=== PATIENT | male | born 1955 | race Caucasian/White ===

== ENCOUNTER 2020-10-17 06:52 | Emergency (ER) | payer MEDICAID, SELFPAY ==
--- NOTE | 2020-10-17 | ECG_ITS ---
Test Reason : CP Blood Pressure : / mmHG Vent. Rate : 067 BPM Atrial Rate : 067 BPM P-R Int : 140 ms QRS Dur : 098 ms QT Int : 384 ms P-R-T Axes : 040 -54 -12 degrees QTc Int : 405 ms Normal sinus rhythm Left axis deviation Nonspecific T wave abnormality Abnormal ECG When compared with ECG of 02-DEC-2019 04:53, QRS axis Shifted left Nonspecific T wave abnormality, worse in Inferior leads Referred By: Generic ED Physician Electronically Signed By:Jani Coates
--- NOTE | 2020-10-17 08:18 | XR_ITS ---
EXAMINATION: XR CHEST CLINICAL INFORMATION: Chest pain COMPARISON: Previous chest x-ray November 2019 TECHNIQUE: 2 views of the chest were obtained. FINDINGS: The cardiac and mediastinal contours are stable. There is biapical pleural thickening that is stable. The lungs are clear. There is no pleural effusion or pneumothorax. There are degenerative changes of the spine. XR/XR chest 2V IMPRESSION: No evidence for acute disease in the chest.
--- NOTE | 2020-10-17 08:48 | ED_ITS ---
HPI - Chest Pain General Chief Complaint: Chest Pain Stated Complaint: Chest pain Time Seen by Provider: 10/17/20 08:18 Source: patient Mode of arrival: ambulatory Limitations: no limitations History of Present Illness HPI narrative: Patient presents to ED for intermittent chest pain for the past 3 days. Patient states she describes chest pain as sharp stabbing. Patient states while sleeping the chest pain around 03:00 this morning. Patient states chest pain resolved after taking Tylenol. Patient states presently no chest pain the ER. Patient states no swelling of the lower extremity, coughing up blood, fever, chills, calf pain, recent long travel, any recent surgery. Patient denies any shortness of breath. Patient states no recent trauma to the chest. Patient denies any abdominal pain, vomiting blood, weakness, fever, chills. Patient admits to 1 episode of blood in stool yesterday. Patient has not had any since. MD complaint: chest pain Related Data Allergies Allergy/AdvReac Type Severity Reaction Status Date / Time aspirin [ASA] Allergy Unknown BLEEDING Unverified 06/29/20 16:26 Review of Systems Review of Systems: Yes all other systems are reviewed and are negative Constitutional: Constitutional: Reports as per HPI and Reports no additional constitutional complaints Eyes: Eyes: Reports as per HPI and Reports no additional eye complaints ENT: Reports system reviewed and no additional complaints, except as documented and Reports as per HPI Cardiovascular: Cardiovascular: Reports as per HPI, Reports no additional cardiovascular complaints and Reports chest pain (resolved) Respiratory: Respiratory: Reports as per HPI and Reports no additional respiratory complaints Gastrointestinal: Gastrointestinal: Reports as per HPI and Reports no additional gastrointestinal complaints Genitourinary: Genitourinary: Reports no additional male genitourinary complaints and Reports as per HPI Musculoskeletal: Musculoskeletal: Reports no additional musculoskeletal complaints and Reports as per HPI Neurologic: Reports system reviewed and no additional complaints, except as documented and Reports as per HPI Psychiatric: Psychiatric: Reports no additional psychiatric complaints and Reports as per HPI FOR[facility]LY [facility] Past Medical History Medical History Diabetes Hypertension Social History Social History Advance Directives: No Advance Directives Information Provided: Yes Physical Exam Vital Signs: Vital Signs: Last Vital Signs Temp 98.1 F 10/17/20 09:18 Pulse 58 10/17/20 16:54 Resp 20 10/17/20 16:54 BP 150/80 H 10/17/20 16:54 Pulse Ox 98 10/17/20 16:54 Body Mass Index 27.8 Const: General: cooperative, healthy appearing, comfortable, no acute distress, well developed, alert, awake and Physically active Orientation/consciousness: patient oriented x3 HENMT: Head: Yes normal to inspection and Yes No palpable skull fracture present Eyes: General: appearance normal, both eyes and all related structures Neck: Neck: Yes normal visual inspection, Yes full ROM and Yes no lymphadenopathy Chest: Chest palpation & inspection: normal inspection of the chest and normal palpation of entire chest wall Resp: Effort & Inspection: normal respiratory effort and able to speak in complete sentences Auscultation: clear to auscultation bilaterally Cardio: Jugular venous distension: no JVD Heart sounds: S1 normal heart sound present and S2 normal heart sound present GI: Inspection: Yes normal to inspection and No abdominal wall ecchymosis Palpation (GI): Soft to palpation, not firm, nontender, no guarding and not rigid : General: No CVA tenderness and Yes no CVA tenderness Back/Spine/Pelvis: Back: no CVA tenderness, No CVA tenderness and No back tenderness Skin: General skin exam: no rashes or lesions noted Neuro: General: patient oriented x3, gait normal and CN's II-XI intact bilaterally Cranial nerves: Yes CN's II-XII intact bilaterally Extrem: General: Yes normal to inspection and Yes full ROM Psych: Appearance: grossly normal, well kempt and not disheveled Course Course Course Narrative: Due to age patient will have a cardiac workup. Patient will have labs EKG, labs including troponin, D-dimer, chest x-ray, COVID swab. Patient further denies any chest pain. Patient also have stool by accident due to patient stating 1 episode of blood in stool yesterday. Reevaluation(s) Reevaluation #1: Rectal exam negative for any lenard blood. Stool is brown. Patient presently asymptomatic. Time: 09:52 Reevaluation #2: Patient stool guaiac came back positive. Patient is hemodynamically stable. Patient is symptomatic. Patient vital signs are stable. Patient is not tachycardic. Patient's hemoglobin and hematocrit is stable although slightly lower than prior visits. Not suspecting GI bleeding. Patient is not have any abdominal pain presently in the ER. Patient denies ever having any abdominal pain. Not suspecting any colitis. no need for abdominal CT. Patient D-dimer elevated. Patient will be sent for chest CT a to rule out PE. Time: 10:30 Reevaluation #3: Waiting to hear from Dr. Coates of Cardiology in regards to elevated troponin. He was informed of patient's history, physical exam, lab results, and EKG. Time: 11:21 Additional Reevaluation(s): At 11:[address] Coates who states presently there is no indication for transfer to [facility] for catheterization. He recommends ordering echocardiogram to be done on patient. At 12:20pm the [facility] informed me that patient inferior wall is not moving as per echocardiogram. He recommends patient start on heparin and aspirin. And he will try to transfer patient to [facility] for catheterization. He states patient can take aspirin. While speaking to patient Dr. Coates states he seems like patient was having hemorrhoids. He states patient informed him yesterday he was straining while using the bathroom and there was small amount of blood in the stool and is napkin. He also does not believe patient is having a GI bleed. Dr. Coates states he will call [facility] to transfer patient for possible catherization. 17:16. Patient is awaiting bed assignment from [facility]. MDM - Chest Pain MDM Narrative Medical decision making narrative: NSTEMI Lab Data Result diagrams: 10/17/20 09:33 10/17/20 09:33 Labs: Lab Results 10/17/20 10/17/20 10/17/20 Range/Units 09:33 09:33 09:33 WBC 7.6 (4.8-10.8) X10*3/uL RBC 4.44 L (4.60-5.80) X10*6/uL Hgb 13.5 L (14.0-18.0) g/dl Hct 40.5 L (42-52) % MCV 91.2 (80-98) fL MCH 30.4 (27.0-33.0) pg MCHC 33.3 (31.0-36.0) g/dl RDW 15.1 (11.0-16.0) % Plt Count 186 (160-400) X10*3/uL MPV 12.6 H (9.4-12.4) fL Immature Gran % (Auto) Cancelled Neut % (Auto) Cancelled Lymph % (Auto) Cancelled [place] % (Auto) Cancelled Eos % (Auto) Cancelled Baso % (Auto) Cancelled Lymph # (Auto) Cancelled [place] # (Auto) Cancelled Eos # (Auto) Cancelled Baso # (Auto) Cancelled Abs Immat Gran (auto) Cancelled Absolute Neuts (auto) Cancelled Absolute Nucleated RBC 0.000 (0.0-0.012) X10*3/uL Nucleated RBC % (auto) 0.0 (0.0-0.2) /100WBC Neutrophils % (Manual) 58 (45-73) % Band Neutrophils % 0 L (3-5) % Lymphocytes % (Manual) 27 (20-40) % Monocytes % (Manual) 14 H (2-11) % Eosinophils % (Manual) 1 (0-4) % Abs Neuts (Manual) 4.4 (2.2-7.9) X10*3/uL Lymphocytes # (Manual) 2.1 (0.6-4.8) X10*3/uL Monocytes # (Manual) 1.1 (0.0-1.2) X10*3/uL Eosinophils # (Manual) 0.1 (0.0-0.8) X10*3/UL Platelet Estimate NORMAL (NORMAL) Plt Morphology Comment NORMAL RBC Morphology NORMAL PT 13.5 H (10.8-13.0) SEC INR 1.1 (0.9-1.1) APTT 34.5 (24.1-38.0) SEC D-Dimer NG/ML Sodium 140 (135-145) mmol/L Potassium 4.2 (3.3-5.1) mmol/l Chloride 104 (96-108) mmol/L Carbon Dioxide 29 (22-29) mmol/L Anion Gap 11 L (12-20) BUN 14 (9-16) mg/dL Creatinine 0.86 (0.5-1.4) mg/dL Estim Creat Clear Calc 101.3 Estimated GFR > 60 Random Glucose 110 (60-115) mg/dL Calcium 8.9 (8.4-10.2) mg/dL Total Bilirubin 0.6 (0.0-1.0) mg/dL AST 26 (5-37) U/L ALT 19 (0-40) U/L Alkaline Phosphatase 51 (39-117) U/L Troponin I High Sens (<3.5-35.0) ng/L B-Natriuretic Peptide (<100) pg/mL Total Protein 7.2 (6.5-8.0) g/dL Albumin 4.0 (3.5-5.0) g/dL Stool Occult Blood (NEG) Coronavirus (PCR) Influenza Type A (PCR) Influenza Type B (PCR) RSV RNA Qual (PCR) 10/17/20 10/17/20 10/17/20 Range/Units 09:33 09:33 09:33 WBC (4.8-10.8) X10*3/uL RBC (4.60-5.80) X10*6/uL Hgb (14.0-18.0) g/dl Hct (42-52) % MCV (80-98) fL MCH (27.0-33.0) pg MCHC (31.0-36.0) g/dl RDW (11.0-16.0) % Plt Count (160-400) X10*3/uL MPV (9.4-12.4) fL Immature Gran % (Auto) Neut % (Auto) Lymph % (Auto) Lag[place] % (Auto) Eos % (Auto) Baso % (Auto) Lymph # (Auto) [place] # (Auto) Eos # (Auto) Baso # (Auto) Abs Immat Gran (auto) Absolute Neuts (auto) Absolute Nucleated RBC (0.0-0.012) X10*3/uL Nucleated RBC % (auto) (0.0-0.2) /100WBC Neutrophils % (Manual) (45-73) % Band Neutrophils % (3-5) % Lymphocytes % (Manual) (20-40) % Monocytes % (Manual) (2-11) % Eosinophils % (Manual) (0-4) % Abs Neuts (Manual) (2.2-7.9) X10*3/uL Lymphocytes # (Manual) (0.6-4.8) X10*3/uL Monocytes # (Manual) (0.0-1.2) X10*3/uL Eosinophils # (Manual) (0.0-0.8) X10*3/UL Platelet Estimate (NORMAL) Plt Morphology Comment RBC Morphology PT (10.8-13.0) SEC INR (0.9-1.1) APTT (24.1-38.0) SEC D-Dimer 372 NG/ML Sodium (135-145) mmol/L Potassium (3.3-5.1) mmol/l Chloride (96-108) mmol/L Carbon Dioxide (22-29) mmol/L Anion Gap (12-20) BUN (9-16) mg/dL Creatinine (0.5-1.4) mg/dL Estim Creat Clear Calc Estimated GFR Random Glucose (60-115) mg/dL Calcium (8.4-10.2) mg/dL Total Bilirubin (0.0-1.0) mg/dL AST (5-37) U/L ALT (0-40) U/L Alkaline Phosphatase (39-117) U/L Troponin I High Sens 08143.2 H (<3.5-35.0) ng/L B-Natriuretic Peptide (<100) pg/mL Total Protein (6.5-8.0) g/dL Albumin (3.5-5.0) g/dL Stool Occult Blood (NEG) Coronavirus (PCR) Cancelled Influenza Type A (PCR) Cancelled Influenza Type B (PCR) Cancelled RSV RNA Qual (PCR) Cancelled 10/17/20 10/17/20 10/17/20 Range/Units 09:33 09:44 10:55 WBC (4.8-10.8) X10*3/uL RBC (4.60-5.80) X10*6/uL Hgb (14.0-18.0) g/dl Hct (42-52) % MCV (80-98) fL MCH (27.0-33.0) pg MCHC (31.0-36.0) g/dl RDW (11.0-16.0) % Plt Count (160-400) X10*3/uL MPV (9.4-12.4) fL Immature Gran % (Auto) Neut % (Auto) Lymph % (Auto) [place] % (Auto) Eos % (Auto) Baso % (Auto) Lymph # (Auto) [place] # (Auto) Eos # (Auto) Baso # (Auto) Abs Immat Gran (auto) Absolute Neuts (auto) Absolute Nucleated RBC (0.0-0.012) X10*3/uL Nucleated RBC % (auto) (0.0-0.2) /100WBC Neutrophils % (Manual) (45-73) % Band Neutrophils % (3-5) % Lymphocytes % (Manual) (20-40) % Monocytes % (Manual) (2-11) % Eosinophils % (Manual) (0-4) % Abs Neuts (Manual) (2.2-7.9) X10*3/uL Lymphocytes # (Manual) (0.6-4.8) X10*3/uL Monocytes # (Manual) (0.0-1.2) X10*3/uL Eosinophils # (Manual) (0.0-0.8) X10*3/UL Platelet Estimate (NORMAL) Plt Morphology Comment RBC Morphology PT (10.8-13.0) SEC INR (0.9-1.1) APTT (24.1-38.0) SEC D-Dimer NG/ML Sodium (135-145) mmol/L Potassium (3.3-5.1) mmol/l Chloride (96-108) mmol/L Carbon Dioxide (22-29) mmol/L Anion Gap (12-20) BUN (9-16) mg/dL Creatinine (0.5-1.4) mg/dL Estim Creat Clear Calc Estimated GFR Random Glucose (60-115) mg/dL Calcium (8.4-10.2) mg/dL Total Bilirubin (0.0-1.0) mg/dL AST (5-37) U/L ALT (0-40) U/L Alkaline Phosphatase (39-117) U/L Troponin I High Sens (<3.5-35.0) ng/L B-Natriuretic Peptide 428 H (<100) pg/mL Total Protein (6.5-8.0) g/dL Albumin (3.5-5.0) g/dL Stool Occult Blood POS (NEG) Coronavirus (PCR) NEGATIVE Influenza Type A (PCR) NEGATIVE Influenza Type B (PCR) NEGATIVE RSV RNA Qual (PCR) NEGATIVE ECG Data ECG #1: Interpretation: NORMAL SINUS RHYTHM. LEFT AXIS DEVIATION. NONSPECIFIC T- WAVE ABNORMALITY. VENTRICULAR RATE 67. PARENTS OF 140. QRS 98. NEGATIVE STEMI Critical Care Time Critical Care Time Critical Care Time: Yes Total Critical Care Time: 60 Attestation: PATIENT TROPONIN OVER 10,000. 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 DIANNA ARCE WAS CONTACTED AND HE RECOMMENDED ECHOCARDIOGRAM. ONCE ECHOCARDIOGRAM SHOWS NO MOVEMENT IN THE INFERIOR WALL HE RECOMMENDED HEPARIN BOLUS AND INFUSION, WHICH WAS ORDERED. PATIENT TO BE TRANSFERRED TO [facility] Discharge Plan Discharge Clinical Impression: NSTEMI (non-ST elevated myocardial infarction) Patient Disposition: [facility]
[2020-10-17 09:18] VITALS: BP 152/89; PULSE 56; RESP 16; TEMP 36.7; O2SAT 98; BMI 27.8
[2020-10-17 09:46] LABS: Hemoglobin 13.5 g/dl (14.0-18.0); Mean Corpuscular HGB Conc 33.3 g/dl (31.0-36.0); Red Cell Distribution Width 15.1 % (11.0-16.0)
[2020-10-17 09:50] LABS: Hematocrit 40.5 % (42-52); Mean Corpuscular Hemoglobin 30.4 pg (27.0-33.0); Mean Corpuscular Volume 91.2 fL (80-98); Mean Platelet Volume 12.6 fL (9.4-12.4); Platelet Count 186 X10*3/uL (160-400); Red Blood Count 4.44 X10*6/uL (4.60-5.80)
[2020-10-17 09:52] LABS: WBC ABN SCTR FOR CBC 1; White Blood Count 7.6 X10*3/uL (4.8-10.8)
[2020-10-17 09:59] LABS: INTERNATIONAL NORM RATIO 1.1 (0.9-1.1); Prothrombin Time 13.5 SEC (10.8-13.0)
[2020-10-17 10:01] LABS: Partial Thromboplastin Time 34.5 SEC (24.1-38.0)
[2020-10-17 10:02] LABS: D Dimer 372 NG/ML
[2020-10-17 10:03] LABS: OBS Int Ctl Valid YES; OBS1 POS (NEG)
[2020-10-17 10:05] LABS: Alanine Aminotransferase 19 U/L (0-40); Alkaline Phosphatase 51 U/L (39-117); Anion Gap 11 (12-20); Aspartate Amino Transferase 26 U/L (5-37); Bilirubin Total 0.6 mg/dL (0.0-1.0); Blood Urea Nitrogen 14 mg/dL (9-16); Calcium 8.9 mg/dL (8.4-10.2); Carbon Dioxide 29 mmol/L (22-29); Chloride 104 mmol/L (96-108); Creatinine Clr Calc Pharmacy 101.3; Estimated Glomerular Filt Rate > 60; Glucose Random 110 mg/dL (60-115); Potassium 4.2 mmol/l (3.3-5.1); Sodium 140 mmol/L (135-145); Total Protein 7.2 g/dL (6.5-8.0)
[2020-10-17 10:11] LABS: Eosinophils Absolute Manual 0.1 X10*3/UL (0.0-0.8); Eosinophils Percent Manual 1 % (0-4); Lymphocytes Absolute Manual 2.1 X10*3/uL (0.6-4.8); Lymphocytes Percent Manual 27 % (20-40); Monocytes Absolute Manual 1.1 X10*3/uL (0.0-1.2); Monocytes Percent Manual 14 % (2-11); Neutrophils Percent Manual 58 % (45-73)
[2020-10-17 10:12] LABS: B Type Natriuretic Peptide 428 pg/mL (<100); Platelet Estimate NORMAL (NORMAL); RBC Morphology NORMAL
--- NOTE | 2020-10-17 10:19 | CT_ITS ---
EXAMINATION: CT ANGIOGRAM OF THE CHEST WITH AND WITHOUT CONTRAST (CT PULMONARY ANGIOGRAM FOR PE) CLINICAL INFORMATION: Reason for Exam atypical chest pain. elevated D-dimer. PE? COMPARISON: None TECHNIQUE: Prior to contrast administration, noncontrast localization images were obtained. Subsequently, multidetector volumetric imaging was performed from the thoracic inlet to below the diaphragms following the administration of 80 mL Omnipaque 350 intravenous contrast. No contrast reaction reported Sagittal, coronal, and MIP oblique sagittal reformatted images were obtained on the CT workstation, uploaded to PACS, and reviewed. This CT examination was performed using dose optimization techniques as appropriate, variously including the following: *Automated exposure control *Adjustment of mA and/or kV according to patient size (this includes techniques or standardized protocols for targeted exams where dose is matched to indication/reason for exam; i.e. extremities or head) *Use of iterative reconstruction technique Total exam dose-length product 338 mGy-cm FINDINGS: QUALITY OF STUDY/CONTRAST BOLUS: Satisfactory. PULMONARY ARTERIES: No central or segmental pulmonary emboli. THORACIC AORTA: No evidence of aneurysm. LUNG: No focal consolidation, nodules or masses. PLEURA: No pleural effusion or pneumothorax. MEDIASTINUM: The heart size is normal. There are coronary artery calcifications. There is no pericardial effusion. No abnormal size mediastinal lymph nodes or mass seen. Central trachea and the bronchi widely patent. The thyroid lobes are symmetrical and normal. No evidence of septal bowing or right heart strain. CHEST WALL/AXILLA: No axillary or internal mammary lymphadenopathy. OSSEOUS STRUCTURES: There is moderate spondylosis mid and lower dorsal spine. No lytic process. UPPER ABDOMEN: Visualized liver, spleen, pancreas and bilateral adrenal glands are unremarkable. No reflux of contrast into the hepatic veins to suggest elevated right heart pressures. CT/CT angio chest PE protocol IMPRESSION: No evidence of PE. No evidence of aortic aneurysm. The lungs are clear. VTE: Negative
[2020-10-17 10:39] LABS: Platelet Morphology Comment NORMAL
[2020-10-17] MEDS: iohexoL 350 MG/ML 100 ML INFUS..BTL 65 ML IV (10:44)
[2020-10-17 11:09] LABS: Band Neutrophils Percent 0 % (3-5); Neutrophils Absolute Manual 4.4 X10*3/uL (2.2-7.9)
[2020-10-17 11:27] VITALS: BP 138/77; PULSE 55; RESP 16; O2SAT 100
--- NOTE | 2020-10-17 11:29 | CA_ITS ---
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 - The basal inferior segment is akinetic. Cannot rule out inferolateral wall hypokinesis. - Normal right ventricular cavity size and systolic function. - There is mild to moderate mitral valve regurgitation. - There is mild dilatation of the ascending aorta. Findings Left Ventricle Normal left ventricular size and systolic function. There is mildly increased left ventricular wall thickness. The visually estimated ejection fraction is between 55-60%. There is evidence of regional wall motion abnormalities. Diastolic function is normal for age. Wall Motion Rest Echo Findings The basal inferior segment is akinetic. Right Ventricle Normal right ventricular cavity size and systolic function. Atria Both atria are normal in size. There is no evidence of interatrial shunt by color Doppler. Aortic Valve There is a normal trileaflet aortic valve. There is mild calcification of the aortic valve. There is no aortic valve stenosis. There is no aortic valve regurgitation. Mitral Valve There is mild mitral annular calcification. There is mild to moderate mitral valve regurgitation. There is no mitral valve stenosis. Pulmonic Valve Normal pulmonic valve structure and function. There is trace pulmonic valve regurgitation. Tricuspid Valve Normal tricuspid valve structure. There is trace tricuspid valve regurgitation. Normal right atrial pressure. There is no evidence of pulmonary hypertension. Great Vessels There is mild dilatation of the ascending aorta. The visualized portions of the pulmonary artery and branches are normal. Venous The inferior vena cava is normal in size and collapses greater than 50% with inspiration. Pericardium/Pleural There is no evidence of pericardial effusion. Prior Study Comparison Changes noted compared to prior study dated: 12/03/2019. Mild to moderate MR. Basal inferior wall akinetic. Cannot rule out inferolateral wall hypokinesis. Measurements 2D Linear Measurements IVSd: 1.24 0.6-0.9/0.6-1.0 cm LVIDd: 4.77 3.9-5.3/4.2-5.9 cm LVIDd Index: 2.26 2.4-3.2/2.2-3.1 cm/m2 LVIDs: 2.98 2.0-3.6 cm LVPWd: 1.25 0.7-1.1 cm Ao Root: 3.50 2.1-3.5 cm LA Diam: 3.40 2.7-3.8/3.0-4.0 cm LAIDs Index: 1.61 1.5-2.3 cm/m2 LV Mass: 285.09 67-162/88-224 g LV Mass Index: 135.11 43-95/49-115 g/m2 LVOT Diam: 2.30 3.0+(-)1.3 cm Mitral Valve MV Pk E: 1.12 MV PK A: 0.67 MV Decel Time: 264.00 E/A: 1.70 E'Lateral: 11.80 E'Medial: 8.12 E/E' Med: 13.80 E/E' Lat: 9.50 PHT: 77.00 MVA PHT: 2.86 Decel Harvey: 4.22 Aortic Valve AoV Pk Dandy: 1.23 AoV Mn Dandy: 0.83 AoV VTI: 0.30 AoV Pk Grad: 6.00 Aov Mn Grad: 3.00 RAMSEY Cont.VTI: 2.71 LVOT LVOT Pk Dandy: 0.88 LVOT Mn Dandy: 0.53 LVOT VTI: 0.19 LVOT Pk Grad: 3.00 LVOT Mn Grad: 1.00 LVOT Diam: 2.30 LVOT Area: 4.15 Diastolic Function MV Pk E: 1.12 MV Pk A: 0.67 E/A: 1.70 E'Medial: 8.12 E/E' Med: 13.80 E' Laterial: 11.80 E/E' Lat: 9.50 Tricuspid Valve TR Pk Dandy: 2.32 TR Pk Grad: 22.00 RVSP: 25.00 Great Vessels Aorta Ao Root-2D: 3.50 2.0-3.7 cm Ao Asc: 3.50 2.1-3.4 cm Pulmonary Valve PV Pk Dandy: 0.75 Peak PV Grad: 2.00 Updated in Other Vendor System with Status of Final Jani Coates MD electronically signed on 10/17/2020 2:15:57 PM with status of Final
[2020-10-17 11:46] LABS: Influenza A PCR NEGATIVE (Negative); Influenza B PCR NEGATIVE (Negative); Resp Syncy Virus RNA Qual PCR NEGATIVE (Negative); SARS COV2 PCR INHOUSE NEGATIVE (Negative)
--- NOTE | 2020-10-17 12:31 | PM.CNCAR ---
History of Present Illness History of Present Illness Date of Service: 10/17/20 Requesting physician: Jose Krause Chief complaint: Chest pain, NSTEMI Narrative: Pleasant 64-year-old gentleman with diabetes and hypertension who is presenting with 3 days history of chest discomfort. He is describing a sharp sensation in the chest on the right side. The longest episode was for proximity 15-20 minutes. With these symptoms he presented to [facility]. His blood workup has shown her high sensitivity troponin level of 10,000. His ECG showing poor R-wave in the inferior leads without any ST-T changes otherwise. Echocardiography has shown basal inferior wall motion abnormality. He is denying any more chest discomfort. He is denying any dyspnea before. He does have off and on blood in stool when he is constipated. He gets it when he wipes himself. He has never had colonoscopy or EGD. No peptic ulcer disease in the past. No significant bleeding in the past. Review of Systems Review of Systems: Chest pain Neurologic: Reports system reviewed and no additional complaints, except as documented and Reports as per [facility] Past Medical History Medical History (Updated 10/17/20 @ 12:59 by Jani Coates MD) Diabetes Hypertension Social History Social History Advance Directives: No Advance Directives Information Provided: Yes Meds Allergies Allergy/AdvReac Type Severity Reaction Status Date / Time aspirin [ASA] Allergy Unknown BLEEDING Unverified 06/29/20 16:26 Physical Exam Vital Signs: Vital Signs: Last Vital Signs Temp 98.1 F 10/17/20 09:18 Pulse 55 10/17/20 11:27 Resp 16 10/17/20 11:27 BP 138/77 10/17/20 11:27 Pulse Ox 100 10/17/20 11:27 Body Mass Index 27.8 GENERAL APPEARANCE: in no acute distress, well developed, well nourished. HEENT: unremarkable. HEAD: normocephalic, atraumatic. NECK/THYROID: no carotid bruit, no jugular venous distention. SKIN: no suspicious lesions, warm and dry. HEART: no murmurs, regular rate and rhythm, S1, S2 normal. LUNGS: clear to auscultation bilaterally. ABDOMEN: normal, bowel sounds present, soft, nontender, nondistended. EXTREMITIES: no clubbing, cyanosis, or edema. PERIPHERAL PULSES: equal. NEUROLOGIC: nonfocal, alert and oriented. PSYCH: mood/affect full range. Results Labs and Meds Result diagrams: 10/17/20 09:33 10/17/20 09:33 Lab results: Laboratory Results - last 24 hr 10/17/20 10/17/20 10/17/20 09:33 09:33 09:33 WBC 7.6 RBC 4.44 L Hgb 13.5 L Hct 40.5 L MCV 91.2 MCH 30.4 MCHC 33.3 RDW 15.1 Plt Count 186 MPV 12.6 H Immature Gran % (Auto) Cancelled Neut % (Auto) Cancelled Lymph % (Auto) Cancelled Mathews % (Auto) Cancelled Eos % (Auto) Cancelled Baso % (Auto) Cancelled Lymph # (Auto) Cancelled Mathews # (Auto) Cancelled Eos # (Auto) Cancelled Baso # (Auto) Cancelled Abs Immat Gran (auto) Cancelled Absolute Neuts (auto) Cancelled Absolute Nucleated RBC 0.000 Nucleated RBC % (auto) 0.0 Neutrophils % (Manual) 58 Band Neutrophils % 0 L Lymphocytes % (Manual) 27 Monocytes % (Manual) 14 H Eosinophils % (Manual) 1 Abs Neuts (Manual) 4.4 Lymphocytes # (Manual) 2.1 Monocytes # (Manual) 1.1 Eosinophils # (Manual) 0.1 Platelet Estimate NORMAL Plt Morphology Comment NORMAL RBC Morphology NORMAL PT 13.5 H INR 1.1 APTT 34.5 D-Dimer Sodium 140 Potassium 4.2 Chloride 104 Carbon Dioxide 29 Anion Gap 11 L BUN 14 Creatinine 0.86 Estim Creat Clear Calc 101.3 Estimated GFR > 60 Random Glucose 110 Calcium 8.9 Total Bilirubin 0.6 AST 26 ALT 19 Alkaline Phosphatase 51 Troponin I High Sens B-Natriuretic Peptide Total Protein 7.2 Albumin 4.0 Stool Occult Blood Coronavirus (PCR) Influenza Type A (PCR) Influenza Type B (PCR) RSV RNA Qual (PCR) 10/17/20 10/17/20 10/17/20 09:33 09:33 09:33 WBC RBC Hgb Hct MCV MCH MCHC RDW Plt Count MPV Immature Gran % (Auto) Neut % (Auto) Lymph % (Auto) Mathews % (Auto) Eos % (Auto) Baso % (Auto) Lymph # (Auto) Mathews # (Auto) Eos # (Auto) Baso # (Auto) Abs Immat Gran (auto) Absolute Neuts (auto) Absolute Nucleated RBC Nucleated RBC % (auto) Neutrophils % (Manual) Band Neutrophils % Lymphocytes % (Manual) Monocytes % (Manual) Eosinophils % (Manual) Abs Neuts (Manual) Lymphocytes # (Manual) Monocytes # (Manual) Eosinophils # (Manual) Platelet Estimate Plt Morphology Comment RBC Morphology PT INR APTT D-Dimer 372 Sodium Potassium Chloride Carbon Dioxide Anion Gap BUN Creatinine Estim Creat Clear Calc Estimated GFR Random Glucose Calcium Total Bilirubin AST ALT Alkaline Phosphatase Troponin I High Sens 08430.2 H B-Natriuretic Peptide Total Protein Albumin Stool Occult Blood Coronavirus (PCR) Cancelled Influenza Type A (PCR) Cancelled Influenza Type B (PCR) Cancelled RSV RNA Qual (PCR) Cancelled 10/17/20 10/17/20 10/17/20 09:33 09:44 10:55 WBC RBC Hgb Hct MCV MCH MCHC RDW Plt Count MPV Immature Gran % (Auto) Neut % (Auto) Lymph % (Auto) Mathews % (Auto) Eos % (Auto) Baso % (Auto) Lymph # (Auto) Mathews # (Auto) Eos # (Auto) Baso # (Auto) Abs Immat Gran (auto) Absolute Neuts (auto) Absolute Nucleated RBC Nucleated RBC % (auto) Neutrophils % (Manual) Band Neutrophils % Lymphocytes % (Manual) Monocytes % (Manual) Eosinophils % (Manual) Abs Neuts (Manual) Lymphocytes # (Manual) Monocytes # (Manual) Eosinophils # (Manual) Platelet Estimate Plt Morphology Comment RBC Morphology PT INR APTT D-Dimer Sodium Potassium Chloride Carbon Dioxide Anion Gap BUN Creatinine Estim Creat Clear Calc Estimated GFR Random Glucose Calcium Total Bilirubin AST ALT Alkaline Phosphatase Troponin I High Sens B-Natriuretic Peptide 428 H Total Protein Albumin Stool Occult Blood POS Coronavirus (PCR) NEGATIVE Influenza Type A (PCR) NEGATIVE Influenza Type B (PCR) NEGATIVE RSV RNA Qual (PCR) NEGATIVE Imaging Radiologist's impression: Impressions Chest X-Ray 10/17/20 08:18 IMPRESSION: No evidence for acute disease in the chest. Chest CTA 10/17/20 10:19 IMPRESSION: No evidence of PE. No evidence of aortic aneurysm. The lungs are clear. VTE: Negative Assessment and Plan (1) NSTEMI (non-ST elevated myocardial infarction): Status: Acute Pleasant 64-year-old gentleman here for chest pain and non ST elevation [place]. He is currently pain free. Echocardiography is showing basal inferior wall motion abnormality. His EKG is quite nonspecific. I do not see any dynamic changes on the EKG. He had CT pulmonary angiogram to rule out pulmonary embolism which was negative. His COVID test is also negative. I am starting him on heparin drip. His rectal bleeding story sound like hemorrhoids. He has no anemia despite passing blood in the past. He is not allergic to aspirin. He had nosebleed when he was very young and was told should avoid aspirin. He has been given aspirin in the emergency department. He should continue the heparin drip. He is bradycardic and I will avoid using beta blockers currently. Continue his home enalapril. Give him 1 L of normal saline at 75 cc per our because he just received contrast and may get cardiac catheterization today or tomorrow. We will give further recommendations after cardiac catheterization. He is accepted at [facility] and will be transferred there as soon as a bed is available. Thank you for allowing me to participate in the care of your patient. Please feel free to contact me if you have any questions.
[2020-10-17] MEDS: Aspirin 81 MG TAB.CHEW 162 MG PO (12:46)
[2020-10-17] MEDS: Heparin Sodium,Porcine 5,000 UNIT/ML VIAL 3628.72 UNIT IVPUSH (12:55)
[2020-10-17] MEDS: Heparin Sodium,Porcine/1/2NS 25,000 UNIT/250 ML IV.SOLN 12.7 UNIT IVCONT (13:00)
[2020-10-17] MEDS: 0.9 % Sodium Chloride 1,000 ML 999 ML IV (13:23)
[2020-10-17 14:00] VITALS: BP 130/70; PULSE 56; RESP 18; O2SAT 99
--- NOTE | 2020-10-17 16:01 | PC.NURSE ---
PT INR in record for 1211 draw. previous PT/INR already obtained from earlier order in the day. Per provider, original PT/INR ok, second PT/INR will be discontinued.
[2020-10-17 16:54] VITALS: BP 150/80; PULSE 58; RESP 20; O2SAT 98
--- NOTE | 2020-10-17 17:36 | PC.NURSE ---
RETURN CALL @ [id number] FROM CHRISTIANO @[facility] PT PLACEMENT GIVES ROOM ASSIGNMENT MASS MUTUAL 5, BED 18 RN TO RN [phone] TORRES
--- NOTE | 2020-10-17 18:02 | PC.NURSE ---
Nurse to Nurse reports given to [facility] MIRANDA. line to [facility]astate is [phone]
[2020-10-17 18:23] LABS: INTERNATIONAL NORM RATIO 1.2 (0.9-1.1); Prothrombin Time 14.6 SEC (10.8-13.0)
[2020-10-17 18:36] VITALS: BP 126/69; PULSE 63; RESP 20
== END 2020-10-17 18:55 | disposition short-term general hospital (02) ==
PROVIDERS: Physician Assistant; Emergency Provider Emergency Medicine
DX: I21.4 Non-ST elevation (NSTEMI) myocardial infarction (principal); Z20.828 Contact with and (suspected) exposure to other viral communicable diseases; I10 Essential (primary) hypertension; E11.9 Type 2 diabetes mellitus without complications
CPT/HCPCS: 0241U; 36415; 71046; 71275; 80053; 82272; 83880; 84484; 85007; 85027; 85379; 85610; 85730; 93005; 93306; 96361; 96374; 99285; 99291; Q9967

== ENCOUNTER → 2020-11-01 10:33 | Outpatient (BNVA) | payer MEDICAID, SELFPAY | PROVIDERS: Visit Provider Nurse Practitioner Family | DX: I21.4 Non-ST elevation (NSTEMI) myocardial infarction (principal); I25.10 Atherosclerotic heart disease of native coronary artery without angina pectoris; Z95.5 Presence of coronary angioplasty implant and graft; K62.5 Hemorrhage of anus and rectum; I10 Essential (primary) hypertension; E11.9 Type 2 diabetes mellitus without complications; E78.5 Hyperlipidemia, unspecified; Z98.890 Other specified postprocedural states | CPT/HCPCS: 99212 ==

== ENCOUNTER → 2020-11-08 10:46 | Outpatient (BNVA) | payer MEDICAID, SELFPAY | PROVIDERS: PCP Internal Medicine; Visit Provider Surgery | DX: K64.9 Unspecified hemorrhoids (principal) | CPT/HCPCS: 46600; 99202 ==

== ENCOUNTER → 2020-11-09 13:43 | Outpatient (REF) | payer MEDICAID, SELFPAY ==
--- NOTE | 2020-11-09 13:49 | CA_ITS ---
Transthoracic Echocardiogram Patient (Last, First, Middle): Jorge A John, Gender: Male Date of : 1955 Age: 64 Procedure Date: 11/09/2020 Procedure Type: Transthoracic Echocardiogram Location: OP Height: 180.34 cm Weight: 88.91 kg BSA: 2.09 m2 Heart Rate: bpm BP: 152 / 80 mmHg Dog Warden: ZULEYKA Waters MD: Irina Hoffman ENLISTED AIRCREW/AERIAL OBSERVER/GUNNERKrystalC Grid Maker: Yadiel Mauricio MD Symptoms: I21.4 - Non-ST elevation (NSTEMI) myocardial infarction Study Quality: Fair ECG Rhythm: Sinus Conclusions: - 1. Normal LV systolic function with impaired relaxation filling pattern 2. Basal inferior and inferoseptal hypokinesis Findings Left Ventricle Normal left ventricular size, thickness, and systolic function. The visually estimated ejection fraction is between 55-60%. Spectral Doppler is indicative of an impaired relaxation filling pattern. Wall Motion Rest Echo Findings The basal inferior and basal inferoseptal segments are hypokinetic. All other scored wall segments showed normal motion. Prior Study Comparison No significant change compared to prior study dated: 10/17/2020. Measurements 2D Linear Measurements IVSd: 1.02 0.6-0.9/0.6-1.0 cm LVIDd: 5.04 3.9-5.3/4.2-5.9 cm LVIDd Index: 2.41 2.4-3.2/2.2-3.1 cm/m2 LVIDs: 3.50 2.0-3.6 cm LVPWd: 1.03 0.7-1.1 cm LV Mass: 237.51 67-162/88-224 g LV Mass Index: 113.64 43-95/49-115 g/m2 2D Systolic Function EF 4C: 45.40 >55% EF 2C: 54.60 >55% Mitral Valve MV Pk E: 0.86 MV PK A: 0.91 MV Decel Time: 248.00 E/A: 0.90 E'Lateral: 7.94 E'Medial: 6.64 E/E' Med: 13.00 E/E' Lat: 10.90 PHT: 73.00 MVA PHT: 3.01 Decel Baca: 3.48 Diastolic Function MV Pk E: 0.86 MV Pk A: 0.91 E/A: 0.90 E'Medial: 6.64 E/E' Med: 13.00 E' Laterial: 7.94 E/E' Lat: 10.90 Updated in Other Vendor System with Status of Final Yadiel Mauricio MD electronically signed on 11/09/2020 4:37:19 PM with status of Final
== END ==
LOC: HO.CARD 13:43
PROVIDERS: Visit Provider Nurse Practitioner Family
DX: I21.4 Non-ST elevation (NSTEMI) myocardial infarction (principal)
CPT/HCPCS: 93005; 93308; 99212

== ENCOUNTER → 2020-12-04 10:18 | Outpatient (BNVA) | payer MEDICAID, SELFPAY | PROVIDERS: PCP Internal Medicine; Visit Provider Internal Medicine Cardiovascular Disease | DX: I25.10 Atherosclerotic heart disease of native coronary artery without angina pectoris (principal); K62.5 Hemorrhage of anus and rectum; E78.5 Hyperlipidemia, unspecified | CPT/HCPCS: 99212 ==

== ENCOUNTER → 2020-12-26 15:07 | Outpatient (BNVA) | payer MEDICARE, MEDICAID, SELFPAY | PROVIDERS: PCP Internal Medicine; Visit Provider Nurse Practitioner | DX: K64.9 Unspecified hemorrhoids (principal); Z12.11 Encounter for screening for malignant neoplasm of colon | CPT/HCPCS: Q3014 ==

== ENCOUNTER 2021-01-26 10:33 | Outpatient (REF) | payer MEDICAID, SELFPAY ==
[2021-01-26 11:47] LABS: Hemoglobin 13.3 g/dl (14.0-18.0); Mean Corpuscular HGB Conc 32.4 g/dl (31.0-36.0); Mean Corpuscular Hemoglobin 29.3 pg (27.0-33.0); Mean Corpuscular Volume 90.3 fL (80-98); Mean Platelet Volume 12.4 fL (9.4-12.4); Platelet Count 147 X10*3/uL (160-400); Red Blood Count 4.54 X10*6/uL (4.60-5.80); Red Cell Distribution Width 15.2 % (11.0-16.0); White Blood Count 6.8 X10*3/uL (4.8-10.8)
== END 2021-01-26 10:34 | disposition home or self-care (01) ==
LOC: HO.LAB 10:33
PROVIDERS: Visit Provider Internal Medicine Cardiovascular Disease
DX: K62.5 Hemorrhage of anus and rectum (principal)
CPT/HCPCS: 36415; 85027

== ENCOUNTER → 2021-02-20 13:08 | Outpatient (BNVA) | payer MEDICARE, MEDICAID, SELFPAY | PROVIDERS: PCP Internal Medicine; Visit Provider Nurse Practitioner | CPT/HCPCS: Q3014 ==

== ENCOUNTER → 2021-03-08 10:48 | Outpatient (BNVA) | payer MEDICAID, SELFPAY | PROVIDERS: PCP Internal Medicine; Visit Provider Internal Medicine Cardiovascular Disease | DX: E78.5 Hyperlipidemia, unspecified (principal); I10 Essential (primary) hypertension; I25.10 Atherosclerotic heart disease of native coronary artery without angina pectoris | CPT/HCPCS: 99212 ==

== ENCOUNTER → 2021-07-04 10:36 | Outpatient (BNVA) | payer MEDICARE, MEDICAID, SELFPAY | PROVIDERS: PCP Internal Medicine; Referring Provider Internal Medicine; Visit Provider Internal Medicine Cardiovascular Disease | DX: I20.8 Other forms of angina pectoris (principal); I10 Essential (primary) hypertension; Z95.5 Presence of coronary angioplasty implant and graft | CPT/HCPCS: 93005; 99212 ==

== ENCOUNTER → 2022-08-12 11:13 | Outpatient (BNVA) | payer MEDICARE, MEDICAID, SELFPAY | PROVIDERS: PCP Internal Medicine; Referring Provider Internal Medicine; Visit Provider Internal Medicine Cardiovascular Disease | DX: I20.8 Other forms of angina pectoris (principal) | CPT/HCPCS: 93005; 99212 ==

== ENCOUNTER 2022-08-16 09:08 | Outpatient (REF) | payer MEDICARE, MEDICAID, SELFPAY ==
[2022-08-16 10:13] LABS: Cholesterol 149 mg/dL; HDL Cholesterol 50 mg/dL; LDL Cholesterol Calculated 84 mg/dl; Triglycerides 78 mg/dL
== END 2022-08-16 09:09 | disposition home or self-care (01) ==
LOC: HO.LAB 09:08
PROVIDERS: PCP Internal Medicine; Visit Provider Internal Medicine Cardiovascular Disease
DX: I20.8 Other forms of angina pectoris (principal)
CPT/HCPCS: 36415; 80061

== ENCOUNTER 2022-10-08 08:11 | Emergency (ER) | payer OTHER, MEDICARE, MEDICAID, SELFPAY ==
--- NOTE | 2022-10-08 | ECG_ITS ---
Test Reason : arm numbness Blood Pressure : / mmHG Vent. Rate : 058 BPM Atrial Rate : 058 BPM P-R Int : 134 ms QRS Dur : 096 ms QT Int : 410 ms P-R-T Axes : 058 -13 029 degrees QTc Int : 402 ms Sinus bradycardia Otherwise normal ECG When compared with ECG of 17-OCT-2020 06:59, QRS axis Shifted right Nonspecific T wave abnormality no longer evident in Inferior leads Referred By: Generic ED Physician Electronically Signed By:JESI VIGIL MD
[2022-10-08 08:46] VITALS: BP 157/79; PULSE 61; RESP 18; TEMP 36.4; O2SAT 98; BMI 27.6
[2022-10-08 10:51] VITALS: BP 167/97; PULSE 64; RESP 20; TEMP 36.6; O2SAT 100
--- NOTE | 2022-10-08 10:57 | ED_ITS ---
HPI - Fall General Chief Complaint: Fall Stated Complaint: Fall T-1 week/Head inj/Numb arms Time Seen by Provider: 10/08/22 10:31 Source: patient Mode of arrival: ambulatory Limitations: no limitations History of Present Illness HPI Narrative: patient is a 66-year-old male presents to the emergency department for evaluation of neck pain and weakness to the arms. He reports that he had a mechanical fall down the stairs 10/05/2022. For which she was evaluated at [facility] in [place]. He reports that he had imaging obtained of his head, but he states that he did not have imaging obtained of his neck. He had vijaya placed to his head and was advised to return for removal. He reports that since he returned home after initial hospital visit he has been experiencing subjective weakness to the bilateral arms, numbness to the bilateral thumb and 2nd digit, and left lateral neck pain/stiffness. Denies associated headache, dizziness, lightheadedness, midline neck pain, chest pain, shortness of breath, difficulty breathing, nausea, vomiting, abdominal pain, bladder or bowel dysfunction, numbness or tingling of the lower extremities. Related Data Home Medications Medication Instructions Recorded Confirmed atorvastatin 40 mg tablet 40 mg PO DAILY 11/01/20 08/12/22 enalapril maleate 20 mg tablet 20 mg PO BID 11/01/20 08/12/22 metformin 500 mg tablet 500 mg PO 11/01/20 08/12/22 amlodipine 5 mg tablet 5 mg PO DAILY 08/12/22 08/12/22 metoprolol succinate 25 mg 50 mg PO DAILY 08/12/22 08/12/22 tablet,extended release 24 hr Previous Rx's Medication Instructions Recorded aspirin 81 mg tablet,delayed 81 mg PO DAILY #90 tabs 08/12/22 release ezetimibe 10 mg tablet 10 mg PO DAILY #60 tabs 08/16/22 cyclobenzaprine 10 mg tablet 10 mg PO BEDTIME PRN muscle spasm 10/08/22 #14 tabs ibuprofen 600 mg tablet 600 mg PO Q8H PRN pain #20 tabs 10/08/22 Allergies Allergy/AdvReac Type Severity Reaction Status Date / Time No Known Allergies Allergy Verified 08/12/22 11:34 Review of Systems Review of Systems: Constitutional: No fever. No chills. Positive weakness. No fatigue. Skin: No rash. No itching. Cardiovascular: No chest pain. No chest pressure. No palpitations. No pedal edema. Respiratory: No shortness of breath. No cough. No sputum production. Gastrointestinal: No nausea. No vomiting. No diarrhea. No abdominal pain. No blood in stool. Genitourinary: No burning micturition. No urinary frequency. No incontinence. Neurologic: No headache. No dizziness. No pre-syncope/ syncope. No unilateral weakness. No ataxia. positive numbness. No tingling. No change in bowel or bladder control. Musculoskeletal: No muscle pain. No back pain. No joint pain. No stiffness. Hematologic: No bleeding. No bruising. Yes all other systems are reviewed and are negative PMFSH Past Medical History Attestation statement: The following information was validated with the patient. Source: old records reviewed Medical History Bleeding hemorrhoids CAD (coronary artery disease) Diabetes Hyperlipidemia Hypertension Surgical History Hx of colonoscopy (~2012) S/P cardiac catheterization (~10/2020) Family History Family History Mother Diabetes Hypertension Heart problem Father No problems noted. Social History Social History Alcohol intake: current Alcohol intake frequency: a few times a month Patient Tobacco Use Status: Former Tobacco user Tobacco use type: Cigarette Years Smoked: 4 Smoked in Last 30 Days: No Advance Directives: No Advance Directives Information Provided: Yes Physical Exam Vital Signs: Vital Signs: Last Vital Signs Temp 97.9 F 10/08/22 10:51 Pulse 64 10/08/22 10:51 Resp 20 10/08/22 10:51 BP 167/97 H 10/08/22 10:51 Pulse Ox 100 10/08/22 10:51 O2 Del Method 10/08/22 08:46 BMI result Body Mass Index 27.6 Appearance: Alert.?Oriented to person, place and time. No acute distress.?Normal affect. Eyes: Pupils equal, round and reactive to light.? ENT: Pharynx normal.?? Neck: Normal inspection.? Neck supple.? no midline cervical spine tenderness, step-offs, deformities. Tenderness upon palpation of the left paraspinal /trapezius muscles.? CVS: Heart sounds normal. Normal heart rate and rhythm.? Pulses normal.?? Respiratory: No respiratory distress.? Lung sounds clear to auscultation bilaterally?? Abdomen: Soft and non-tender. Normoactive bowel sounds. Skin: Skin warm and dry.? Normal skin color.? ?? Extremities: No lower extremity edema.? Neuro: Moves all extremities spontaneously. Sensation intact bilaterally. Helium Arc Welder strengths are equal bilaterally. CN II-XII intact. No focal neuro deficits. Ambulates with normal steady gait. Course Reevaluation(s) Reevaluation #1: Obtained records from [facility] for patient's hospital visit on 10/05/2022. Patient was found at the bottom of the 12 steps tear well after his reported mechanical fall which was unwitnessed. He was found by family, unknown whether LOC had occurred, but he had been drinking alcohol prior. Patient had CT of the head and cervical spine without evidence of skull fracture, intracranial bleed, and no acute traumatic injury to the cervical spine, there was however mention of moderate degenerative changes in the cervical spine, in addition had a nondisplaced left nasal bone fracture. Once clinically sober he was ultimately discharged from the emergency department. At this time, patient reports some improvement in pain, pain is currently 4/10, he still reports a subjective weakness, but remains neurovascularly intact without any focal deficits. He is conscious alert and oriented, ambulatory with a steady gait. At this time he is stable for discharge, will discharge patient with a prescription for ibuprofen, and muscle relaxant to use at bedtime. Advised on precautions of muscle relaxants, things to avoid. Discussed worrisome signs and symptoms to return back to the emergency department for. All questions were answered. Time: 13:50 Medications Administered Discontinued Medications Generic Name Dose Route Start Last Admin Trade Name Freq PRN Reason Stop Dose Admin Cyclobenzaprine HCl 10 mg 10/08/22 10:59 10/08/22 11:22 Cyclobenzaprine Hcl 10 Mg Tablet PO 10/08/22 11:00 10 mg ONCE ONE Administration Medical Decision Making Medical Decision Making MDM Narrative: Patient is a 66-year-old male with a past medical history of CAD, hypertension, hyperlipidemia, diabetes who presents emergency department for evaluation of subjective bilateral arm weakness, finger numbness, and left lateral neck pain after mechanical fall 3 days ago. At this time working to obtain records from [facility] to determine imaging that was obtained. Do not see acute indication for obtaining repeat head CT/ cervical spine CT at this time. There is no objective weakness upon examination despite his subjective description. all extremities are neurovascularly intact distally. He has no focal neurological deficits. Will trial cyclobenzaprine at this time and plan to re-evaluate. External Record Review External record reviewed: Outside ED record ( As noted in course reviewed ED records from [facility]) Tests considered The following testing was considered but not selected: Considered CT of the head and cervical spine, however there are no focal neurological deficits, or worrisome findings on physical examination that would warrant repeat at this time. Prescription Management I considered prescription management with: Pain Medication ( prescription for ibuprofen and cyclobenzaprine sent to patient's pharmacy.) Discharge Plan Discharge Clinical Impression: Cervical muscle strain Patient Disposition: Home, Self-Care Instructions: Cervical Strain (ED) Additional Instructions: A prescription was sent to your pharmacy for ibuprofen to use as needed for pain, you may use this in addition to Tylenol. You have also been given a prescription for cyclobenzaprine, this is a muscle relaxer to use as needed at bedtime for pain unrelieved with ibuprofen. When taking cyclobenzaprine it is important not to take this while drinking alcohol, you cannot work while taking this, you should not operate machinery or drive a vehicle. Return to emergency department any new or worsening symptoms or concerns. Follow-up with your primary care provider for further symptoms. Prescriptions: New ibuprofen 600 mg tablet 600 mg PO Q8H PRN (Reason: pain) Qty: 20 0RF cyclobenzaprine 10 mg tablet 10 mg PO BEDTIME PRN (Reason: muscle spasm) Qty: 14 0RF No Action ezetimibe 10 mg tablet 10 mg PO DAILY Qty: 60 3RF atorvastatin 40 mg tablet 40 mg PO DAILY metformin 500 mg tablet 500 mg PO enalapril maleate 20 mg tablet 20 mg PO BID metoprolol succinate 25 mg tablet extended release 24 hr 50 mg PO DAILY amlodipine 5 mg tablet 5 mg PO DAILY aspirin 81 mg tablet,delayed release (DR/EC) 81 mg PO DAILY Qty: 90 5RF Referrals: Physician,Unknown J [Primary Care Provider] - Interventions: ED Discharge Assessment Last Done: 10/08/22 14:04 Discharge Date/Time: 10/08/22 14:05
[2022-10-08] MEDS: Cyclobenzaprine HCl 10 MG TABLET PO (11:22)
== END 2022-10-08 14:05 | disposition home or self-care (01) ==
PROVIDERS: Emergency Provider Student in an Organized Health Care Education/Training Program
DX: R20.2 Paresthesia of skin (principal); R20.0 Anesthesia of skin; M54.2 Cervicalgia; R51.9 Headache, unspecified; Z79.899 Other long term (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
CPT/HCPCS: 93005; 99283; 99284; 99285

== ENCOUNTER 2022-10-11 16:44 | Emergency (ER) | payer OTHER, MEDICARE, MEDICAID, SELFPAY ==
--- NOTE | 2022-10-11 18:36 | ED.GENADULT ---
HPI - General Adult General Chief complaint: General Medical Stated complaint: recent headstrike/visit, cant lift arms, multi com Related Data Home Medications Medication Instructions Recorded Confirmed atorvastatin 40 mg tablet 40 mg PO DAILY 11/01/20 08/12/22 enalapril maleate 20 mg tablet 20 mg PO BID 11/01/20 08/12/22 metformin 500 mg tablet 500 mg PO 11/01/20 08/12/22 amlodipine 5 mg tablet 5 mg PO DAILY 08/12/22 08/12/22 metoprolol succinate 25 mg 50 mg PO DAILY 08/12/22 08/12/22 tablet,extended release 24 hr Previous Rx's Medication Instructions Recorded aspirin 81 mg tablet,delayed 81 mg PO DAILY #90 tabs 08/12/22 release ezetimibe 10 mg tablet 10 mg PO DAILY #60 tabs 08/16/22 cyclobenzaprine 10 mg tablet 10 mg PO BEDTIME PRN muscle spasm 10/08/22 #14 tabs ibuprofen 600 mg tablet 600 mg PO Q8H PRN pain #20 tabs 10/08/22 Allergies Allergy/AdvReac Type Severity Reaction Status Date / Time No Known Allergies Allergy Verified 08/12/22 11:34 [facility] Past Medical History Medical History Bleeding hemorrhoids CAD (coronary artery disease) Diabetes Hyperlipidemia Hypertension Surgical History Hx of colonoscopy (~2012) S/P cardiac catheterization (~10/2020) Family History Family History Mother Diabetes Hypertension Heart problem Father No problems noted. Social History Social History Alcohol intake: current Alcohol intake frequency: a few times a month Patient Tobacco Use Status: Former Tobacco user Tobacco use type: Cigarette Years Smoked: 4 Advance Directives: No Advance Directives Information Provided: No Physical Exam ED Vital Signs: BMI result Body Mass Index 29.2 Course Course Course Narrative: This is an RME: Additional HPI, ROS, PE not included below will be deferred to primary provider. Patient is a 66-year-old male who presents to the emergency department for evaluation of neck pain, arm pain. He was seen in this emergency department 10/08/2022 for evaluation of similar complaints after he sustained a mechanical fall downstairs 10/05/2022 for which he was evaluated at [facility] in [place] (he had CT imaging of the head and cervical spine without any acute abnormalities). Patient reports that he was evaluated yesterday by Dr. Baker, surgeon at [facility], he was placed in an Dora collar, he is awaiting an MRI to be scheduled, he was given a prescription for oxycodone to use in addition to ibuprofen, and has not helped. He is requesting additional pain medication at this time. Pain of his neck is on the right greater than left and is also reporting midline cervical spine pain. Continues to have numbness to his bilateral hands; thumb and index finger. He is ambulatory with a steady gait at triage. Discharge Plan Discharge Clinical Impression: Fall Patient Disposition: Elopement Prescriptions: No Action ezetimibe 10 mg tablet 10 mg PO DAILY Qty: 60 3RF ibuprofen 600 mg tablet 600 mg PO Q8H PRN (Reason: pain) Qty: 20 0RF cyclobenzaprine 10 mg tablet 10 mg PO BEDTIME PRN (Reason: muscle spasm) Qty: 14 0RF atorvastatin 40 mg tablet 40 mg PO DAILY metformin 500 mg tablet 500 mg PO enalapril maleate 20 mg tablet 20 mg PO BID metoprolol succinate 25 mg tablet extended release 24 hr 50 mg PO DAILY amlodipine 5 mg tablet 5 mg PO DAILY aspirin 81 mg tablet,delayed release (DR/EC) 81 mg PO DAILY Qty: 90 5RF Discharge Date/Time: 10/11/22 23:45
[2022-10-11 18:38] VITALS: BP 175/109; PULSE 66; RESP 16; TEMP 36.4; O2SAT 97; BMI 29.2
--- OUTSIDE RECORDS SUMMARY | 2022-10-11 20:27 | XMS_ITS | Continuity of Care Document ---
:1955 Author Organization [facility] Address [address] [place] [address]- Care Team Providers Name Role Phone Not on Staff, PCP Primary Care Physician Unavailable Encounter [facility] Date(s): 10/05/22 - 10/05/[address] [address]- Encounter Diagnosis Scalp laceration (Final) - 10/05/22 Discharge Disposition: A-D/C Home Attending Physician: Mela Ann MD Admitting Physician: Mela Ann MD Referring Physician: Not on Staff, Referring MD Allergies, Adverse Reactions, Alerts No Known Allergies Immunizations Given and Recorded Vaccine Date Status Refusal Reason influenza virus vaccine, inactivated 10/19/20 Given Medications aspirin 81 mg oral delayed release tablet 81 mg, By Mouth, Daily, # 30 tablet, Refills 1, Tot. Refills 1, Maintenance, 10/19/20 12:17:00 EST, Route to Pharmacy Electronically, [facility], Partial fill upon patient request if the prescription is for a schedule II opioid drug., 18... Start Date: 10/19/20 Status: Orderedatorvastatin 40 mg oral tablet 1 tablet = 40 mg, By Mouth, Daily at bedtime, # 30 tablet, 1 Refills, Maintenance, 10/19/20 12:17:00EST, Tablet, [facility], Partial fill upon patient request if the prescription is for a schedule II opioid drug., 180, cm, 10/19/20 8:05... Start Date: 10/19/20 Status: Orderedcyclobenzaprine 10 mg oral tablet 10 mg, 1, tablet, By Mouth, 3 times a day, PRN, # 30 tablet, Refills 0, Maintenance, for spasm, 10/17/20 20:22:00 EST, Partial fill upon patient request if the prescription is for a schedule II opioid drug. Start Date: 10/17/20 Status: Orderedenalapril 20 mg oral tablet 1 tablet = 20 mg, By Mouth, Daily, # 30 tablet, 0 Refills, Maintenance, 10/17/20 20:23:00 EST, Tablet, Partial fill upon patient request if the prescription is for a schedule II opioid drug. Start Date: 10/17/20 Status: OrderedmetFORMIN 500 mg oral tablet 1 tablet = 500 mg, By Mouth, 2 times a day, # 60 tablet, 0 Refills, Maintenance, 10/17/20 20:22:00 EST, Tablet, Partial fill upon patient request if the prescription is for a schedule II opioid drug. Start Date: 10/17/20 Status: Orderedmetoprolol 25 mg oral tablet, extended release 25 mg, 1, tablet, By Mouth, Daily, # 30 tablet, Refills 1, Tot. Refills 1, Maintenance, 10/19/20 12:16:00 EST, Route to Pharmacy Electronically, [facility], Partial fill upon patient request if the prescription is for a schedule II opioi... Start Date: 10/19/20 Status: Orderedticagrelor 90 mg oral tablet 1 tablet = 90 mg, By Mouth, 2 times a day, # 60 tablet, 1 Refills, Maintenance, 10/19/20 12:16:00 EST, Tablet, [facility], Partial fill upon patient request if the prescription is for a schedule II opioid drug., 180, cm, 10/19/20 8:05:00... Start Date: 10/19/20 Status: Ordered Results Radiology Reports Exam Date Time Procedure Performing Provider Status 10/05/22 8:10 AM Hand Min 3 Views Right Nely Acevedo; Auth (V erified) Notes:(Hand Min 3 Views Right) Reason For Exam: with Pain;TraumaRESULT: Hand Min 3 Views Right Hand Min 3 Views Right, 3 views Reason: Trauma; with Pain; Clinical Question(s): Fracture COMPARISON: None. FINDINGS: No fractures or bone lesions. Bone mineralization is normal. No arthritic changes. Extensive arterial wall calcification. Soft tissues are otherwise normal. IMPRESSION: No osseous or joint space abnormality. Extensive arterial calcification. WSN: [id number] Ordering Physician: Barbara Nguyen Dictated By: Renzo Hickey MD Dictated Date/Time: 10/05/22 9:12 am Reviewed By: Renzo Hickey MD Signed By: Renzo Hickey MD Signed Date/Time: 10/05/22 9:12 am Transcribed By: JUNE Transcribed Date/Time: 10/05/22 9:10 am Exam Date Time Procedure Performing Provider Status 10/05/22 8:10 AM Hand Min 3 Views Left Nely Acevedo; Auth (Ve rified) Notes:(Hand Min 3 Views Left) Reason For Exam: with Pain;TraumaRESULT: Hand Min 3 Views Left Hand Min 3 Views Left, 3 views Reason: Trauma; with Pain; Clinical Question(s): Fracture COMPARISON: None. FINDINGS: There is no evidence of acute fracture or dislocation. There are osteoarthritic changes in the first carpometacarpal joint with spurring. There are atherosclerotic vascular calcifications. IMPRESSION: Osteoarthritic changes without evidence of acute fracture or dislocation. WSN: [id number] Ordering Physician: Barbara Nguyen Dictated By: Grisel Lopez MD Dictated Date/Time: 10/05/22 8:51 am Reviewed By: Grisel Lopez MD Signed By: Grisel Lopez MD Signed Date/Time: 10/05/22 8:51 am Transcribed By: JUNE Transcribed Date/Time: 10/05/22 8:49 am Exam Date Time Procedure Performing Provider Status 10/05/22 3:12 AM Chest Portable Chana Gordon; Karen (Verified ) Notes:(Chest Portable) Reason For Exam: Other:RESULT: Chest Portable Chest Portable Reason: Other:; Clinical Question(s): Other: COMPARISON: None. FINDINGS: LINES AND TUBES: None. LUNGS AND PLEURA: Clear lungs. Normal pulmonary vascularity. No pleural effusion. No pneumothorax. HEART, MEDIASTINUM AND CAMRYN: Heart is normal in size. Normal mediastinal and hilar contour. BONES AND SOFT TISSUES: No acute abnormality. IMPRESSION: No acute abnormality. WSN: [id number] Ordering Physician: Oleg Burton Dictated By: Grisel Lopez MD Dictated Date/Time: 10/05/22 4:12 am Reviewed By: Grisel Lopez MD Signed By: Grisel Lopez MD Signed Date/Time: 10/05/22 4:12 am Transcribed By: JUNE Transcribed Date/Time: 10/05/22 4:11 am Exam Date Time Procedure Performing Provider Status 10/05/22 3:[address] Abd/Pelvis W/ IV Contrast Sadaf Liu; Au th (Verified) Only Notes:(CT Abd/Pelvis W/ IV Contrast Only) Reason For Exam: Abd trauma, blunt;Other:RESULT: CT Abd/Pelvis W/ IV Contrast Only CT Chest W/ Contrast, CT Abd/Pelvis W/ IV Contrast Only INDICATION: Reason: Other:; Chest trauma, blunt; Clinical Question(s): Other:; Aortic hilar injury TECHNIQUE: Helical CT scan of the chest, abdomen, and pelvis with IV contrast, formatted in 3 planes. 100 cc of Omnipaque 300 was administered intravenously. This study was performed without oral contrast. Weight-based protocol was performed using automatic exposure control. CTDIvol Body: 10.90 mGy, DLP Body: 860 mGy*cm. COMPARISON: None. FINDINGS: Promotional Demonstrator view findings, lines and tubes: None. Trachea and airways: Patent without evidence of tracheal or endobronchial lesion. Lungs and pleura: Mild subsegmental atelectasis in the dependent lower lobes. No consolidation. 6 with a nodule in the left lower lobe abutting the major fissure (axial 58). 4 mm nodule at the left apex (axial 25). 3 mm nodule at the right apex (axial 27). No effusion or pneumothorax. Mediastinum and camryn: No mass or hematoma. No mediastinal or hilar lymphadenopathy. No esophageal abnormality. Normal thyroid. Heart: Moderate cardiomegaly. No pericardial effusion. Severe coronary artery calcification. Severe aortic valve and mitral annulus calcifications. Aorta: Severe atherosclerotic vascular calcification but no aneurysm. Pulmonary arteries: Dilated main pulmonary artery measuring up to 3.7cm in caliber, which may be seen with pulmonary hypertension. No evidence of pulmonary embolism on this study performed without angiographic technique. Chest wall soft tissues: No acute abnormality. Diaphragm: Intact. Liver: Normal in attenuation and morphology. No suspicious lesion. Gallbladder: No CT evidence of gallbladder pathology. Bile ducts: No biliary ductal dilation. 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 Pancreas: 1.5 cm rim-calcified focus in the pancreatic tail (axial 99). Adrenal glands: No nodule. Kidneys and ureters: No hydronephrosis, stone, or suspicious lesion. Bladder: No wall thickening or surrounding stranding. Reproductive organs: Unremarkable. Stomach, small bowel, and large bowel: The stomach is normal. The small and large bowel are normal in caliber without evidence of obstruction. Appendix: Normal. Peritoneum and retroperitoneum: No ascites or pneumoperitoneum. No omental or mesenteric lesions. Lymph nodes: No enlarged lymph nodes. Blood vessels: Moderate atherosclerotic vascular calcification. No aortic aneurysm. No evidence of venous thrombosis. Abdominal and pelvic wall soft tissues: No acute abnormality. Bones: No acute abnormality. Multilevel bridging osteophytes in the thoracic spine. Multilevel disc space narrowing, endplate osteophytosis and disc osteophyte complex these in the lumbar spine, with severe multilevel canal stenosis. Multilevel neural foraminal narrowing. IMPRESSION: 1. No traumatic injury to the chest, abdomen or pelvis. 2. Pulmonary nodules measuring up to 6 mm. Correlation with prior imaging is recommended. Optional follow-up in 12 months if the patient is at high risk. 3. Absent spleen. 4. 1.5 cm rim calcified focus at the pancreatic tail. Statistically, this most likely represents a calcified small cyst or pseudocyst. Again, correlation with prior imaging will be helpful. If no priorimaging is available, MRI will provide better characterization. 5. Severe degenerative changes of the lumbar spine. Multilevel spinal canal and neural foraminal stenosis in the lumbar region. I have personally reviewed the images and I agree with this report. WSN: [id number] Ordering Physician: Oleg Burton Dictated By: Power Huynh MD Dictated Date/Time: 10/05/22 7:23 am Reviewed By: Renzo Hickey MD Signed By: Renzo Hickey MD Signed Date/Time: 10/05/22 7:28 am Transcribed By: JUNE Transcribed Date/Time: 10/05/22 4:16 am Exam Date Time Procedure Performing Provider Status 10/05/22 3:[address] Chest W/ Contrast Anitra Liu (Ancelmo barton) Notes:(CT Chest W/ Contrast) Reason For Exam: Chest trauma, blunt;Other:RESULT: CT Chest W/ Contrast CT Chest W/ Contrast, CT Abd/Pelvis W/ IV Contrast Only INDICATION: Reason: Other:; Chest trauma, blunt; Clinical Question(s): Other:; Aortic hilar injury TECHNIQUE: Helical CT scan of the chest, abdomen, and pelvis with IV contrast, formatted in 3 planes. 100 cc of Omnipaque 300 was administered intravenously. This study was performed without oral contrast. Weight-based protocol was performed using automatic exposure control. CTDIvol Body: 10.90 mGy, DLP Body: 860 mGy*cm. COMPARISON: None. FINDINGS: Promotional Demonstrator view findings, lines and tubes: None. Trachea and airways: Patent without evidence of tracheal or endobronchial lesion. Lungs and pleura: Mild subsegmental atelectasis in the dependent lower lobes. No consolidation. 6 with a nodule in the left lower lobe abutting the major fissure (axial 58). 4 mm nodule at the left apex (axial 25). 3 mm nodule at the right apex (axial 27). No effusion or pneumothorax. Mediastinum and camryn: No mass or hematoma. No mediastinal or hilar lymphadenopathy. No esophageal abnormality. Normal thyroid. Heart: Moderate cardiomegaly. No pericardial effusion. Severe coronary artery calcification. Severe aortic valve and mitral annulus calcifications. Aorta: Severe atherosclerotic vascular calcification but no aneurysm. Pulmonary arteries: Dilated main pulmonary artery measuring up to 3.7cm in caliber, which may be seen with pulmonary hypertension. No evidence of pulmonary embolism on this study performed without angiographic technique. Chest wall soft tissues: No acute abnormality. Diaphragm: Intact. Liver: Normal in attenuation and morphology. No suspicious lesion. Gallbladder: No CT evidence of gallbladder pathology. Bile ducts: No biliary ductal dilation. 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 Pancreas: 1.5 cm rim-calcified focus in the pancreatic tail (axial 99). Adrenal glands: No nodule. Kidneys and ureters: No hydronephrosis, stone, or suspicious lesion. Bladder: No wall thickening or surrounding stranding. Reproductive organs: Unremarkable. Stomach, small bowel, and large bowel: The stomach is normal. The small and large bowel are normal in caliber without evidence of obstruction. Appendix: Normal. Peritoneum and retroperitoneum: No ascites or pneumoperitoneum. No omental or mesenteric lesions. Lymph nodes: No enlarged lymph nodes. Blood vessels: Moderate atherosclerotic vascular calcification. No aortic aneurysm. No evidence of venous thrombosis. Abdominal and pelvic wall soft tissues: No acute abnormality. Bones: No acute abnormality. Multilevel bridging osteophytes in the thoracic spine. Multilevel disc space narrowing, endplate osteophytosis and disc osteophyte complex these in the lumbar spine, with severe multilevel canal stenosis. Multilevel neural foraminal narrowing. IMPRESSION: 1. No traumatic injury to the chest, abdomen or pelvis. 2. Pulmonary nodules measuring up to 6 mm. Correlation with prior imaging is recommended. Optional follow-up in 12 months if the patient is at high risk. 3. Absent spleen. 4. 1.5 cm rim calcified focus at the pancreatic tail. Statistically, this most likely represents a calcified small cyst or pseudocyst. Again, correlation with prior imaging will be helpful. If no priorimaging is available, MRI will provide better characterization. 5. Severe degenerative changes of the lumbar spine. Multilevel spinal canal and neural foraminal stenosis in the lumbar region. I have personally reviewed the images and I agree with this report. WSN: [id number] Ordering Physician: Oleg Burton Dictated By: Power Huynh MD Dictated Date/Time: 10/05/22 7:23 am Reviewed By: Renzo Hickey MD Signed By: Renzo Hickey MD Signed Date/Time: 10/05/22 7:28 am Transcribed By: JUNE Transcribed Date/Time: 10/05/22 4:16 am Exam Date Time Procedure Performing Provider Status 10/05/22 3:[address] Cervical Spine W/O Contrast Sadaf Liu; Karen (Verified) Notes:(CT Cervical Spine W/O Contrast) Reason For Exam: Neck trauma, dangerous injury mechanism;Other:RESULT: CT Cervical Spine W/O Contrast CT Head/Brain W/O Contrast, CT Maxilloface W/O Contrast, CT Cervical Spine W/O Contrast Reason: Other:; Head trauma, mod-severe; Clinical Question(s): Hematoma. TECHNIQUE: Incremental CT without contrast through the head was formatted in axial and coronal planes. Spiral CT without contrast through the cervical spine was formatted in [address] withoutcontrast through the maxillofacial head was reformatted in 3 planes with additional thin reformats. Weight-based protocol using automatic tube modulation was used to optimize exposure parameters. CTDIvol Body: 13.50 mGy, DLP Body: 339 mGy*cm. CTDIvol Head: 32.85 mGy, DLP Head: 1477 mGy*cm. COMPARISON: None. FINDINGS: BRAIN and EXTRA-AXIAL SPACES: No parenchymal hemorrhage, midline shift or mass effect. Marcos-white matter differentiation is well preserved. No acute infarct. Negative insular ribbon sign. Atherosclerotic vascular calcification of the carotid arteries but negative hyperdense vessel sign. Ventricles, sulci and basilar cisterns are normal. Mild low-density white matter changes. No subarachnoid hemorrhage, subdural or epidural collections. CALVARIUM, SKULL BASE AND SOFT TISSUES: No fractures or suspicious bony lesions. Mild mucosal thickening in the maxillary sinuses. Trace fluid in the right posterior mastoid air cells. Visualized orbits and globes are intact. Right parietal scalp laceration status post surgical repair. Small right frontal scalp hematoma. MAXILLOFACE: Periorbital soft tissues: No swelling. Orbital soft tissues: Normal. No hemorrhage or ocular injury. Frontal bones: No fracture. Orbital tena: No fracture. Nasal bones: Mildly displaced left nasal bone fracture. Frontal processes of maxilla: No fracture. Nasal Septum: No fracture. Anterior nasal spine: Intact. Maxillary bones: No fracture. Alveolus: No fracture or avulsed teeth. Zygomatic arches: No fracture. No overlying soft tissue swelling. Pterygoid plates: Intact bilaterally. Mandible: No fracture or dislocation. CERVICAL SPINE: No fracture. No acute osseous abnormalities. Normal alignment. No locked or perched facet. Multilevel disc space narrowing, uncovertebral spurring, endplate osteophytosis and disc osteophyte complexes. Moderate multilevel canal stenosis. Moderatemultilevel neural foraminal narrowing. OTHER BONES: No acute abnormality. CERVICAL SOFT TISSUES AND consistent with scarring. Underlying superimposed areas of malignancy cannot be excluded. . Bilateral carotid bulb calcifications. There are small pockets of gas in anterior right neck veins which is likely iatrogenic. IMPRESSION: 1. No skull fracture or intracranial bleed. 2. Non-displaced left nasal bone fracture. 3. Moderate degenerative changes of the cervical spine, but no acute traumatic injury. I have personally reviewed the images and I agree with this report. WSN: [id number] Ordering Physician: Oleg Burton Dictated By: Power Huynh MD Dictated Date/Time: 10/05/22 7:31 am Reviewed By: Grisel Lopez MD Signed By: Grisel Lopez MD Signed Date/Time: 10/05/22 7:36 am Transcribed By: JUNE Transcribed Date/Time: 10/05/22 4:03 am Exam Date Time Procedure Performing Provider Status 10/05/22 3:[address] Maxilloface W/O Contrast Anitra Liu (Verified) Notes:(CT Maxilloface W/O Contrast) Reason For Exam: TraumaRESULT: CT Maxilloface W/O Contrast CT Head/Brain W/O Contrast, CT Maxilloface W/O Contrast, CT Cervical Spine W/O Contrast Reason: Other:; Head trauma, mod-severe; Clinical Question(s): Hematoma. TECHNIQUE: Incremental CT without contrast through the head was formatted in axial and coronal planes. Spiral CT without contrast through the cervical spine was formatted in [address] withoutcontrast through the maxillofacial head was reformatted in 3 planes with additional thin reformats. Weight-based protocol using automatic tube modulation was used to optimize exposure parameters. CTDIvol Body: 13.50 mGy, DLP Body: 339 mGy*cm. CTDIvol Head: 32.85 mGy, DLP Head: 1477 mGy*cm. COMPARISON: None. FINDINGS: BRAIN and EXTRA-AXIAL SPACES: No parenchymal hemorrhage, midline shift or mass effect. Marcos-white matter differentiation is well preserved. No acute infarct. Negative insular ribbon sign. Atherosclerotic vascular calcification of the carotid arteries but negative hyperdense vessel sign. Ventricles, sulci and basilar cisterns are normal. Mild low-density white matter changes. No subarachnoid hemorrhage, subdural or epidural collections. CALVARIUM, SKULL BASE AND SOFT TISSUES: No fractures or suspicious bony lesions. Mild mucosal thickening in the maxillary sinuses. Trace fluid in the right posterior mastoid air cells. Visualized orbits and globes are intact. Right parietal scalp laceration status post surgical repair. Small right frontal scalp hematoma. MAXILLOFACE: Periorbital soft tissues: No swelling. Orbital soft tissues: Normal. No hemorrhage or ocular injury. Frontal bones: No fracture. Orbital tena: No fracture. Nasal bones: Mildly displaced left nasal bone fracture. Frontal processes of maxilla: No fracture. Nasal Septum: No fracture. Anterior nasal spine: Intact. Maxillary bones: No fracture. Alveolus: No fracture or avulsed teeth. Zygomatic arches: No fracture. No overlying soft tissue swelling. Pterygoid plates: Intact bilaterally. Mandible: No fracture or dislocation. CERVICAL SPINE: No fracture. No acute osseous abnormalities. Normal alignment. No locked or perched facet. Multilevel disc space narrowing, uncovertebral spurring, endplate osteophytosis and disc osteophyte complexes. Moderate multilevel canal stenosis. Moderatemultilevel neural foraminal narrowing. OTHER BONES: No acute abnormality. CERVICAL SOFT TISSUES AND consistent with scarring. Underlying superimposed areas of malignancy cannot be excluded. . Bilateral carotid bulb calcifications. There are small pockets of gas in anterior right neck veins which is likely iatrogenic. IMPRESSION: 1. No skull fracture or intracranial bleed. 2. Non-displaced left nasal bone fracture. 3. Moderate degenerative changes of the cervical spine, but no acute traumatic injury. I have personally reviewed the images and I agree with this report. WSN: [id number] Ordering Physician: Oleg Burton Dictated By: Power Huynh MD Dictated Date/Time: 10/05/22 7:31 am Reviewed By: Grisel Lopez MD Signed By: Grisel Lopez MD Signed Date/Time: 10/05/22 7:36 am Transcribed By: JUNE Transcribed Date/Time: 10/05/22 4:03 am Exam Date Time Procedure Performing Provider Status 10/05/22 3:[address] Head/Brain W/O Contrast Sadaf Liu; Karen (Verified) Notes:(CT Head/Brain W/O Contrast) Reason For Exam: Head trauma, mod-severe;Other:RESULT: CT Head/Brain W/O Contrast CT Head/Brain W/O Contrast, CT Maxilloface W/O Contrast, CT Cervical Spine W/O Contrast Reason: Other:; Head trauma, mod-severe; Clinical Question(s): Hematoma. TECHNIQUE: Incremental CT without contrast through the head was formatted in axial and coronal planes. Spiral CT without contrast through the cervical spine was formatted in [address] withoutcontrast through the maxillofacial head was reformatted in 3 planes with additional thin reformats. Weight-based protocol using automatic tube modulation was used to optimize exposure parameters. CTDIvol Body: 13.50 mGy, DLP Body: 339 mGy*cm. CTDIvol Head: 32.85 mGy, DLP Head: 1477 mGy*cm. COMPARISON: None. FINDINGS: BRAIN and EXTRA-AXIAL SPACES: No parenchymal hemorrhage, midline shift or mass effect. Marcos-white matter differentiation is well preserved. No acute infarct. Negative insular ribbon sign. Atherosclerotic vascular calcification of the carotid arteries but negative hyperdense vessel sign. Ventricles, sulci and basilar cisterns are normal. Mild low-density white matter changes. No subarachnoid hemorrhage, subdural or epidural collections. CALVARIUM, SKULL BASE AND SOFT TISSUES: No fractures or suspicious bony lesions. Mild mucosal thickening in the maxillary sinuses. Trace fluid in the right posterior mastoid air cells. Visualized orbits and globes are intact. Right parietal scalp laceration status post surgical repair. Small right frontal scalp hematoma. MAXILLOFACE: Periorbital soft tissues: No swelling. Orbital soft tissues: Normal. No hemorrhage or ocular injury. Frontal bones: No fracture. Orbital tena: No fracture. Nasal bones: Mildly displaced left nasal bone fracture. Frontal processes of maxilla: No fracture. Nasal Septum: No fracture. Anterior nasal spine: Intact. Maxillary bones: No fracture. Alveolus: No fracture or avulsed teeth. Zygomatic arches: No fracture. No overlying soft tissue swelling. Pterygoid plates: Intact bilaterally. Mandible: No fracture or dislocation. CERVICAL SPINE: No fracture. No acute osseous abnormalities. Normal alignment. No locked or perched facet. Multilevel disc space narrowing, uncovertebral spurring, endplate osteophytosis and disc osteophyte complexes. Moderate multilevel canal stenosis. Moderatemultilevel neural foraminal narrowing. OTHER BONES: No acute abnormality. CERVICAL SOFT TISSUES AND consistent with scarring. Underlying superimposed areas of malignancy cannot be excluded. . Bilateral carotid bulb calcifications. There are small pockets of gas in anterior right neck veins which is likely iatrogenic. IMPRESSION: 1. No skull fracture or intracranial bleed. 2. Non-displaced left nasal bone fracture. 3. Moderate degenerative changes of the cervical spine, but no acute traumatic injury. I have personally reviewed the images and I agree with this report. WSN: [id number] Ordering Physician: Oleg Burton Dictated By: Power Huynh MD Dictated Date/Time: 10/05/22 7:31 am Reviewed By: Grisel Lopez MD Signed By: Grisel Lopez MD Signed Date/Time: 10/05/22 7:36 am Transcribed By: JUNE Transcribed Date/Time: 10/05/22 4:03 am Vital Signs Most recent to oldest 1 2 3 [Reference Range]: Oxygen Saturation [94-100 98 % 98 % 98 % %] (10/05/22 12:00 PM) (10/05/22 9:08 AM) (10/05/22 7:04 AM) Pulse Rate [55-90 bpm] 77 bpm 74 bpm 72 bpm (10/05/22 12:00 PM) (10/05/22 9:08 AM) (10/05/22 7:04 AM) Blood Pressure 133/89 mm Hg 132/82 mm Hg 124/65 mm Hg [90-138/55-84 mm Hg] (10/05/22 12:00 PM) (10/05/22 9:08 AM) ( 7:04 AM) Respiratory Rate [16-30 16 br/min 16 br/min 18 br/mi n br/min] (10/05/22 12:00 PM) (10/05/22 9:08 AM) (10/05/22 7:04 AM) Temperature [96.8-100.4 97.6 DegF DegF] (10/05/22 3:47 AM) Mode of Delivery (Oxygen) Room air Room air Room a ir (10/05/22 12:00 PM) (10/05/22 9:08 AM) (10/05/22 7:04 AM) Blood pressure sites Arm, right Arm, right (10/05/22 12:00 PM) (10/05/22 5:18 AM) Temperature Route Oral (10/05/22 3:47 AM) History and physical note Sadie THOMASON, Miguel: SIGN Sadie THOMASON, Miguel: SIGN, MODIFY Sadie THOMASON, Miguel: MODIFY, MODIFY, MODIFY, SIGN, VERIFY, PERFORM, MODIFY, MODIFY, MODIFY Event Display: History and Physical Hospital Authored Date: [id number] Patient: LISSA KOWALSKI Age: 66 years Sex: Male : 1955 Associated Diagnoses: None Author: Josephine THOMASON, Oleg Monsivais Trauma Activation Category: Category 2. Trauma History 66yo m cat 2 trauma s/p unwitnessed fall from steps. ?LOC, +EtOH, GCS 15. Per EMS, pt family heard fall and found patient down then called EMs. Per EMS pt was found down at bottom of 12 steps with a 2 inch impression on the dry wall behind him. En route pt was AOX3 and hemodynamically stable with exception of hypertension. Upon arrival, primary survey was completed and is as follows: airway patent, breath sounds present equal bilaterally, BP 153/96, pupils 2mm and reactive, GCS 15. Secondary survey was completed and is documented below. Lyman collar was placed for c-spine precaution. IV fluids were administered. 2g Ancef, Tetanus were given. Following CXR, the patient was taken to CT for further workup. On secondary survey pt was found to have 5x4cm R occiput open skull fracture with intact flap, actively bleeding that required numerous figure of 8 stitches in the bay, superficial abrasion over L medial singh, R frontal hematoma, L inferior orbital swelling During repair of hematoma, pt pressures dropped from 150 systolic to 81 systolic and blood was started with LR; in the meantime, an A line was established with good waveform that recorded the blood pressure at 156/81; the pt was deemed stable for transport and we proceeded to CT scan imaging Pt admits to drinking multiple beers and vodka tonight Past Medical History HT, diabetes Past Surgical History none Medications Metformin, atorvastatin, Metoprolol Allergies unknown Family History unknown Social History multiple beers daily per the patient Review of Systems Constitutional:??No weight loss, fever, chills, weakness or fatigue. Respiratory: No SOB, cough, or dyspnea Cardiovascular: No chest pain, flutters or palpitations Gastrointestinal:??No N/V or??constipation, no diarrhea, no rectal bleeding Genitourinary:??No frequency or burning with urination. Neurologic:??No NELSON, dizziness, syncope,??no changes in motor or sensory function.??No change in bowel or bladder control. Skin:??No rashes, bruises??or itching. Endocrine:??No heat or cold intolerance. Psychiatric:??No depression or anxiety. Past Medical History Allergies No active allergies have been recorded. Social History Social History No qualifying data available. . Physical Examination Vital Signs: T 98.5, BP 167/80, HR 59, RR 16, SpO2 98% on RA General: no acute distress, alert, awake Head: 5x4cm R occiput open skull fracture with intact flap, actively bleeding, R frontal hematoma Face: no ecchymosis, no abrasions, no wounds Eyes: pupils are 2 mm, equal, round, and reactive; extraocular movement intact, L inferior orbital swelling Ears: no hemotympanum, no blood in external auditory canal, no abrasions, no gamez's sign Nose: no epistaxis, no deformity Mandible: no deformity, no malocclusion Neck: cervical-collar in place, no hematoma, no ecchymosis, no wounds, trachea midline Chest: symmetric, no deformity, sternum, chest wall, and clavicles are nontender to palpation, no crepitus appreciated Heart: regular rate and rhythm Lungs: clear to auscultation bilaterally Abdomen: soft, nondistended, nontender, no wounds, no ecchymosis, no hematoma Pelvis: stable, nontender Back: no ecchymosis, no abrasions, no hematoma, no wounds Cervical spine: no midline deformities or stepoffs, no tenderness, cervical- collar in place Thoracic spine: no midline deformities or stepoffs, no tenderness Lumbar spine: no midline deformities or stepoffs, no tenderness Extremities: no long bone deformities, full active range of motion, superficial abrasion over L medial singh Neurologic: GCS15; 5/5 strength and sensation to light touch intact in the bilateral upper and lowerextremities Vascular: palpable dorsalis pedis and radial pulses bilaterally Results Review 7 day results Labs & Documents Laboratory : LABORATORY 10/05/2022 5:18 EST Lactate 2.4 mmol/L H Hold Gel Top SPECIMEN DISCARDED AFTER 1 WEEK 10/05/2022 2:09 EST COVID-19 by RT-PCR NEGATIVE 10/05/2022 2:06 EST WBC 9.0 k/mm3 RBC 4.59 m/mm3 L Hgb 14.2 Gm/dL Hct 42.2 % MCV 91.9 femtoliters MCH 30.9 pg MCHC 33.6 g/dL Platelet Count 218 k/mm3 RDW-SD 48.3 femtoliters H MPV 11.4 femtoliters Nucleated RBC (Automated) 0.0 #/100 WBC'S Abs. NRBC 0.0 k/mm3 Abs. Neut 4.3 k/mm3 Abs. Lymph 3.7 k/mm3 H Abs. Amelia 0.8 k/mm3 Abs. Eo 0.1 k/mm3 Abs. Baso 0.0 k/mm3 Neut % 47.9 % Lymph % 41.4 % Amelia % 8.8 % Eos % 0.8 % Baso % 0.4 % Imm Gran 0.7 % Abs. Imm Gran 0.1 k/mm3 INR 1.1 Protime (PT) 11.4 seconds APTT 23.8 seconds L Sodium 138 mmol/L Potassium 3.9 mmol/L Chloride 103 mmol/L Bicarbonate Level 18 mmol/L L Anion Gap 17 Glucose Level 125 mg/dL H BUN 11 mg/dL Creatinine-Blood 0.8 mg/dL Estimated GFR Creatinine 70 ML/MIN/1.73 M2 Calcium 9.0 mg/dL Amylase 117 units/L H Ethanol, Serum or Plasma 258 mg/dL ABN Hold Red Top SPECIMEN DISCARDED AFTER 1 WEEK Imaging : RADIOLOGY 10/05/2022 3:[address] Head/Brain W/O Contrast CT Head/Brain W/O Contrast (In Progress) CT Chest W/ Contrast CT Chest W/ Contrast (In Progress) 10/05/2022 3:12 EST Chest Portable Chest Portable CT Head/Brain W/O Contrast Event Date: 10/05/2022 03:44:02 EST Updated: 10/05/2022 3:[address] Head/Brain W/O Contrast This document has an image Reason For Exam Head trauma, mod-severe;Other: CT Head/Brain W/O Contrast CT Chest W/ Contrast Event Date: 10/05/2022 03:44:02 EST Updated: 10/05/2022 3:[address] Chest W/ Contrast This document has an image Reason For Exam Chest trauma, blunt;Other: CT Chest W/ Contrast Chest Portable Event Date: 10/05/2022 03:12:43 EST Updated: 10/05/2022 4:15 EST XR Chest Portable This document has an image Reason For Exam Other: RESULT: Chest Portable Chest Portable Reason: Other:; Clinical Question(s): Other: COMPARISON: None. FINDINGS: LINES AND TUBES: None. LUNGS AND PLEURA: Clear lungs. Normal pulmonary vascularity. No pleural effusion. No pneumothorax. HEART, MEDIASTINUM AND CAMRYN: Heart is normal in size. Normal mediastinal and hilar contour. BONES AND SOFT TISSUES: No acute abnormality. IMPRESSION: No acute abnormality. WSN: [id number] Ordering Physician: Oleg Burton Signature Line Dictated By: Grisel Lopez MD Dictated Date/Time: 10/05/22 4:12 am Reviewed By: Grisel Lopez MD Signed By: Grisel Lopez MD Signed Date/Time: 10/05/22 4:12 am Transcribed By: JUNE Transcribed Date/Time: 10/05/22 4:11 am Chest Portable Procedure FAST Exam Normal - no fluid x 4 quadrants. Impression and Plan 66yo m cat 2 trauma s/p unwitnessed fall from steps. ?LOC, +EtOH, GCS 15. Per EMS, pt family heard fall and found patient down then called EMs. Per EMS pt was found down at bottom of 12 steps with a 2 inch impression on the dry wall behind him. En route pt was AOX3 and hemodynamically stable with exception of hypertension. Upon arrival, primary survey was completed and is as follows: airway patent, breath sounds present equal bilaterally, BP 153/96, pupils 2mm and reactive, GCS 15. Secondary survey was completed and is documented below. Lyman collar was placed for c-spine precaution. IV fluids were administered. 2g Ancef, Tetanus were given. Following CXR, the patient was taken to CT for further workup. On secondary survey pt was found to have 5x4cm R occiput open skull fracture with intact flap, actively bleeding that required numerous figure of 8 stitches in the bay, superficial abrasion over L medial singh, R frontal hematoma, L inferior orbital swelling During repair of hematoma, pt pressures dropped from 150 systolic to 81 systolic and blood was started with LR; in the meantime, an A line was established with good waveform that recorded the blood pressure at 156/81; the pt was deemed stable for transport and we proceeded to CT scan imaging Injuries L nasal fx Interventions scalp lac repair in bay Consultants none Plan follow up outpatient ENT D/C per emergency D Discussed with Dr. Britni THOMASON, Miguel: PERFORM Event Display: History and Physical Hospital Authored Date: I have seen and evaluated this patient on the above documented date. I have discussed the case and its management with the resident team and VANESSA as documented in the progress note. Seen as a Cat 2 Trauma activation. -66 M -Fall down stairs resulting in: -Scalp laceration - 7 cm irregular with 5 x 4 cm flap, active bleeding, complex repair 2 layers. Developed hypotension with repair of scalp lac requiring 1 unit of PRBC, BPs noted to be stable when A line placed. Plan - as below noted & -Observation in AM - -Monitor until clinically sober. -SW evaluation. -Anticipate discharge planning from the ED. [facility] Progress note Kylah THOMASON, Fara: PERFORM Event Display: Progress Note Hospital Authored Date: [id number] Patient: ??LISSA KOWALSKI ? Age:??66 Years?Sex:??Male?:??1955?? Subjective No acute events overnight. This AM patient was saying he was having some back pain when trying to sit up due to the collar. He otherwise denies??headache, blurry vision, neck pain,??CP, SOB, abdominal pain, n/v, numbness, weakness, or paresthesias. Has voided and PO'd but not yet gotten OOB to walk. ?? C-collar cleared by trauma in setting of GCS 15, AOx4, with no neurologic deficits. Review of Systems Constitutional:??No weight loss, fever, chills, weakness or fatigue. Allergy/Immune: Denies any??Eczema or hives Eyes:??No visual loss, blurred vision, double vision or yellow sclera ENT:??No hearing loss, sneezing, congestion, runny nose or sore throat. Respiratory:??No shortness of breath, cough or sputum production. Cardiovascular:??No chest pain, chest pressure or chest discomfort. No palpitations or pedal edema. Gastrointestinal:??No anorexia, nausea, vomiting or diarrhea. No abdominal pain or blood in stool. Genitourinary:??No burning micturition. No urinary frequency or incontinence. Neurologic:??No headache, dizziness, syncope, unilateral weakness, ataxia, numbness or tingling in the extremities. No change in bowel or bladder control. Musculoskeletal:??No muscle pain, back pain, joint pain or stiffness. Hematologic/Lymphatics:??No bleeding or bruising. No painful lymph nodes. Skin:??No rash or itching. Endocrine:??No reports of sweating. No cold or heat intolerance. No polyuria or polydipsia. Psychiatric:??No depression or anxiety. Objective Temperature?97.6 ?(03:54) Systolic Blood Pressure?124 ?(07:06) Diastolic Blood Pressure?65 ?(07:06) Pulse?72 ?(07:06) SpO2?98 ?(07:06) Respiratory Rate?18 ?(07:06) ? Physical Exam TRAUMA EXAMINATION General: no acute distress, alert, awake Head: posterior right scalp laceration with charisma is hemostatic and intact Face: no ecchymosis, no abrasions, no wounds Eyes: pupils are 3mm, equal, round, and reactive; extraocular movement intact, L inferior orbital swelling Ears: no hemotympanum, no blood in external auditory canal, no abrasions, no gamez's sign Nose: no epistaxis, no deformity, small abrasion, no ttp Mandible: no deformity, no malocclusion Neck: cervical-collar in place, no hematoma, no ecchymosis, no wounds, trachea midline Chest: symmetric, no deformity, sternum, chest wall, and clavicles are nontender to palpation, no crepitus appreciated Heart: regular rate and rhythm, no murmurs Lungs: clear to auscultation bilaterally, nonlabored breathing Abdomen: soft, nondistended, nontender, no wounds, no ecchymosis, no hematoma Pelvis: stable, nontender Back: no ecchymosis, no abrasions, no hematoma, no wounds Cervical spine: no midline deformities or stepoffs, no tenderness, cervical- collar in place Thoracic spine: no midline deformities or stepoffs, no tenderness Lumbar spine: no midline deformities or stepoffs, no tenderness Extremities: bilateral hand swelling swelling over dorsum and thumbs L>R, no long bone deformities,??full active range of motion, superficial abrasion over L medial singh Neurologic: GCS15; CN II to XII grossly intact bilaterally; 5/5 strength and sensation to light touch intact in the bilateral upper and lower extremities Vascular: palpable dorsalis pedis and radial pulses bilaterally Results CT Head/Brain W/O Contrast, CT Maxilloface W/O Contrast, CT Cervical Spine W/O Contrast? Reason: Other:; Head trauma, mod-severe; Clinical Question(s): Hematoma.? TECHNIQUE: Incremental CT without contrast through the head was formatted in axial and coronal planes. Spiral CT without contrast through the cervical spine was formatted in [address] withoutcontrast through the maxillofacial head was reformatted in 3 planes with additional thin reformats. ??Weight-based protocol using automatic tube modulation was used to optimize exposure parameters.? CTDIvol Body: 13.50 mGy, ??DLP Body: 339 mGy*cm. ? CTDIvol Head: 32.85 mGy, DLP Head: 1477 mGy*cm. ? COMPARISON: None. ?? FINDINGS:? BRAIN and EXTRA-AXIAL SPACES: No parenchymal hemorrhage, midline shift or mass effect. Marcos-white matter differentiation is well preserved. No acute infarct. Negative insular ribbon sign. Atherosclerotic vascular calcification of the carotid arteries but negative hyperdense vessel sign. ?? Ventricles, sulci and basilar cisterns are normal.? Mild low-density white matter changes. ?? No subarachnoid hemorrhage, subdural or epidural collections. ?? CALVARIUM, SKULL BASE AND SOFT TISSUES: No fractures or suspicious bony lesions.? Mild mucosal thickening in the maxillary sinuses. Trace fluid in the right posterior mastoid air cells. ?? Visualized orbits and globes are intact.? Right parietal scalp laceration status post surgical repair. Small right frontal scalp hematoma. ?? MAXILLOFACE:?? Periorbital soft tissues: No swelling. ?? Orbital soft tissues: Normal. No hemorrhage or ocular injury. ?? Frontal bones: No fracture. ?? Orbital tena: No fracture.? Nasal bones: Mildly displaced left nasal bone fracture. ?? Frontal processes of maxilla: No fracture.? Nasal Septum: No fracture. ?? Anterior nasal spine: Intact. ?? Maxillary bones: No fracture.? Alveolus: No fracture or avulsed teeth. ?? Zygomatic arches: No fracture. No overlying soft tissue swelling. ?? Pterygoid plates: Intact bilaterally. ?? Mandible: No fracture or dislocation. ? CERVICAL SPINE:?? No fracture. No acute osseous abnormalities. ?? Normal alignment. No locked or perched facet. Multilevel disc space narrowing, uncovertebral spurring, endplate osteophytosis and disc osteophyte complexes. Moderate multilevel canal stenosis. Moderatemultilevel neural foraminal narrowing. ?? OTHER BONES:?? No acute abnormality. ?? CERVICAL SOFT TISSUES AND consistent with scarring. Underlying superimposed areas of malignancy cannot be excluded. . Bilateral carotid bulb calcifications. There are small pockets of gas in anterior right neck veins which is likely iatrogenic. ? IMPRESSION: ?? 1. ??No skull fracture or intracranial bleed. 2. ??Non-displaced left nasal bone fracture. 3. ??Moderate degenerative changes of the cervical spine, but no acute traumatic injury. ? CT Chest W/ Contrast, CT Abd/Pelvis W/ IV Contrast Only? INDICATION: Reason: Other:; Chest trauma, blunt; Clinical Question(s): Other:; Aortic hilar injury ?? TECHNIQUE: Helical CT scan of the chest, abdomen, and pelvis with IV contrast, formatted in 3 planes. 100 cc of Omnipaque 300 was administered intravenously. This study was performed without oral contrast. Weight-based protocol was performed using automatic exposure control.? CTDIvol Body: 10.90 mGy, ??DLP Body: 860 mGy*cm. ? COMPARISON: None. ?? FINDINGS:? Promotional Demonstrator view findings, lines and tubes: None. ?? Trachea and airways: Patent without evidence of tracheal or endobronchial lesion. ?? Lungs and pleura: Mild subsegmental atelectasis in the dependent lower lobes. No consolidation. 6 with a nodule in the left lower lobe abutting the major fissure (axial 58). 4 mm nodule at the left apex (axial 25). 3 mm nodule at the right apex (axial 27). No effusion or pneumothorax. ?? Mediastinum and camryn: No mass or hematoma. No mediastinal or hilar lymphadenopathy. No esophageal abnormality. Normal thyroid. ?? Heart: Moderate cardiomegaly. No pericardial effusion. Severe coronary artery calcification. Severe aortic valve and mitral annulus calcifications. ?? Aorta: Severe atherosclerotic vascular calcification but no aneurysm. ?? Pulmonary arteries: Dilated main pulmonary artery measuring up to 3.7cm in caliber, which may be seen with pulmonary hypertension. No evidence of pulmonary embolism on this study performed without angiographic technique. ?? Chest wall soft tissues: No acute abnormality. ?? Diaphragm: Intact. ?? Liver: Normal in attenuation and morphology. No suspicious lesion. ?? Gallbladder: No CT evidence of gallbladder pathology. ?? Bile ducts: No biliary ductal dilation. ?? 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 ?? Pancreas: 1.5 cm rim-calcified focus in the pancreatic tail (axial 99). ?? Adrenal glands: No nodule. ?? Kidneys and ureters: No hydronephrosis, stone, or suspicious lesion. ?? Bladder: No wall thickening or surrounding stranding. ?? Reproductive organs: Unremarkable. ?? Stomach, small bowel, and large bowel: The stomach is normal. The small and large bowel are normal in caliber without evidence of obstruction. ?? Appendix: Normal. ?? Peritoneum and retroperitoneum: No ascites or pneumoperitoneum. No omental or mesenteric lesions. ?? Lymph nodes: No enlarged lymph nodes. ?? Blood vessels: Moderate atherosclerotic vascular calcification. No aortic aneurysm. No evidence of venous thrombosis. ?? Abdominal and pelvic wall soft tissues: No acute abnormality. ?? Bones: No acute abnormality. Multilevel bridging osteophytes in the thoracic spine. Multilevel disc space narrowing, endplate osteophytosis and disc osteophyte complex these in the lumbar spine, with severe multilevel canal stenosis. Multilevel neural foraminal narrowing.? IMPRESSION: ?? 1. ??No traumatic injury to the chest, abdomen or pelvis. 2. ??Pulmonary nodules measuring up to 6 mm. Correlation with prior imaging is recommended. Optionalfollow-up in 12 months if the patient is at high risk. 3. ??Absent spleen. 4. ??1.5 cm rim calcified focus at the pancreatic tail. Statistically, this most likely represents acalcified small cyst or pseudocyst. Again, correlation with prior imaging will be helpful. If no prior imaging is available, MRI will provide better characterization. 5. ??Severe degenerative changes of the lumbar spine. Multilevel spinal canal and neural foraminal stenosis in the lumbar region. ? RESULT: Chest Portable Chest Portable? Reason: Other:; Clinical Question(s): Other: ?? COMPARISON: None. ?? FINDINGS: ?? LINES AND TUBES:?? None. ?? LUNGS AND PLEURA: Clear lungs. Normal pulmonary vascularity.?? No pleural effusion.?? No pneumothorax. ?? HEART, MEDIASTINUM AND CAMRYN:?? Heart is normal in size. Normal mediastinal and hilar contour. ?? BONES AND SOFT TISSUES:?? No acute abnormality. ?? IMPRESSION: ?? No acute abnormality. ? Assessment/Plan 66yo m cat 2 trauma s/p unwitnessed fall from steps. ?LOC, +EtOH, GCS 15.?? C-collar cleared by trauma in setting of GCS 15, AOx4, with no neurologic deficits. Tertiary??with bilateral hand swelling-??will x-ray. ?? Injuries L nasal fx 5x4cm R occiput open skull fracture with intact flap ?? Interventions scalp laceration repair??in ED ? Plan Xray bilateral hands C-collar cleared Social work consult Sinus precautions, follow up outpatient ENT Ambulation trial Disposition pending above ?? To be discussed with attending surgeon, Dr. Ruggiero Trauma [id number] Crow Ruggiero MD: PERFORM Event Display: Progress Note Hospital Authored Date: The patient was discussed with the team on the date of service documented. ??The clinical course, labs, and radiological studies were reviewed by me and findings confirmed. ??I agree with the findings and assessment and plan as delineated above. ?? --- Crow Badillo. MD [facility] Division of Trauma, Acute Care Surgery, and Surgical Critical Care?? Crow Ruggiero MD: PERFORM Event Display: Progress Note Hospital Authored Date: The patient was discussed with the team on the date of service documented. ??The clinical course, labs, and radiological studies were reviewed by me and findings confirmed. ??I agree with the findings and assessment and plan as delineated above. ?? --- Crow Ruggiero MD Division of Trauma, Acute Care Surgery, and Surgical Critical Care?? Note Saqib THOMASON, Renzo Santos: PERFORM Event Display: Patient Education Leaflets Authored Date: Nose Fracture, with X-Ray ?? [id number] Nose Fracture, with X-Ray A broken bone (fracture) of the nose may be a minor crack. Or it may be a major break, with the parts of your nose pushed out of place. A fractured nose causes pain, swelling, and nasal stuffiness. You may have bleeding from your nose. By tomorrow, you may have bruising around your eyes. A minor fracture will heal in 3 to 4 weeks, with no more treatment needed. A major break that changes the shape of your nose may need to??be treated by an ear, nose, and throat doctor (ENT or water treatment specialist). The ENT doctor will straighten the bones in your nose. This is called a reduction. Some fractures may need a reduction as soon as possible, such as when bleeding from the nose won't stop. Otherwise, it's best to wait a few days until the swelling has gone down. The doctor will then be able to easily see when your nose is back in the right position. Home care ??? Use an ice pack on your nose for??no more than 15 to??20 minutes at a time. Do this every 1 to 2 hours for the first??24 to 48 hours. Then use the ice??as needed to ease pain and swelling. To make an ice pack, put ice cubes in a plastic??bag that seals at the top. Wrap the bag in a clean, thin towel or cloth. Never put ice or an ice pack directly on your skin. ??? Tell your provider ifyou are taking aspirin or blood-thinning medicine. These medicines make it more likely that your nose will bleed. Your provider may need to change your dose. ??? You may use??[id number] pain medicine to control pain, unless another medicine was prescribed. If you have chronic liver or kidney dise ase or history of gastrointestinal ulcers,??talk with your provider before using this medicine. ??? Don???t drink alcohol or hot liquids for the next 2 days. Alcohol and hot liquids can dilate blood vessels in your nose. This can cause bleeding. ??? Don???t blow your nose for the first 2 days. Then, do so gently so you don't cause bleeding. ??? Don???t play contact sports in the next 6 weeks unless you can protect your nose from getting injured again. You can wear a special custom-fitted plastic face mask to protect your nose. ?? Special note on concussions If you had any symptoms of a concussion today, don???t return to sports or any activity that could result in another head injury. These are symptoms of a concussion: ??? Upset stomach (nausea) ??? Vomiting ??? Dizziness ??? Confusion ??? Headache ??? Memory loss ??? Loss of consciousness Wait until all of your symptoms are gone and your provider says it???s OK to resume your activity. Having a second head injury before you fully recover from the first one can lead to serious brain injury. ?? Follow-up care Follow up with your healthcare provider as advised. If your nose looks crooked after the swelling goes down, call the ENT doctor for an appointment??within the next 10 days. Also make an appointment if it???s still hard to breathe through 1 or both sides of your nose. If you have trouble getting an ENT appointment, call your regular provider. If the bones are out of place, a reduction should be done 6 to 10??days??after the injury. In children, the reduction should be done 3 to 7??days??after the injury. After that time, the bones are moredifficult to move back into place. If you had X-rays taken,??you will be told of any new findings that may affect your care. ?? When to get medical advice Call your healthcare provider right away??if any of these occur: ??? Bleeding from your nose, even after you've pinched your nostrils together for 15 minutes??without stopping ??? Swelling, pain, or redness on your face that gets worse ??? Fever of 100.4??F (38??C) or higher, as directed by your provider ??? Chills ??? Can't breathe from both sides of your nose after swelling goes down ??? Sinus pain ?? Call 911 Call 911 if you have: ??? Repeated vomiting ??? Severe headache or dizziness ??? Headache or dizziness that gets worse ??? Sensitivity to light and noise ??? Lack of awareness of surroundings ??? Abnormal drowsiness, or unable to wake up as normal ??? Confusion or change in behavior or speech ??? Memory loss ??? Convulsion, or seizure ?? Last Reviewed Date: 2021 ?? [id number] [employer]. All rights reserved. This information is not intended as a substitute for professional medical care. Always follow your healthcare professional's instructions. ??Saqib THOMASON, Renzo Santos: PERFORM Event Display: Patient Education Leaflets Authored Date: [id number] Scalp Laceration, Stitches or Charisma ?? [id number] Scalp Laceration, Stitches or Centre A laceration is a cut through the skin. A scalp laceration may require stitches or charisma. It may also be closed with a hair positioning method, such as braiding. There are a lot of blood vessels in the scalp. Because of this, a lot of bleeding is common with scalp cuts. You may need a tetanus shot if you're not up to date on your tetanus vaccine. Home care These guidelines will help you care for your laceration at home: ??? Follow your healthcare provider's specific directions on washing your hair and scalp. During the first 2 days you may carefully rinse your hair in the shower to remove blood and glass or dirt particles, or as advised by your provider. After 2 days you may shower and shampoo your hair normally. Don't scrub the repaired area or let water run on it for a long time. ??? Have someone help you clean your wound every day: o In the shower, wash the area with soap and water. Use a wet cotton swab to loosen and remove any blood or crust that forms. o After cleaning, keep the wound clean and dry. Talk with your healthcare provider about applying antibiotic ointment to the wound. Apply a fresh bandage. ??? Don't put your head underwater until the stitches or charisma have been removed. This means no swimming. ??? Your provider may prescribe an antibiotic cream or ointment to prevent infection. Don't stop taking this medicine until you've finished the medicine that was prescribed, or your provider tells you to stop. ??? Your provider may prescribe medicines for pain. If no pain medicines were prescribed, you can use jvzu-jja-[id number] painmedicines. Follow instructions for taking these medicines. Talk with your provider before using these medicines if you have chronic liver or kidney disease. Also talk with your provider if you've ever had a stomach ulcer or digestive tract bleeding. ??? To help prevent scarring, put sunscreen on the wound after it has healed. Use a sunscreen with SPF of 30 or higher. Reapply sunscreen often. ?? Follow-up care Follow up with your healthcare provider as advised. Check the wound daily for the signs of infection listed below. Stitches or charisma are often removed from the scalp in about 7 to 10 days. ?? Call 911 Call 911 if this occurs: ??? Bleeding can't be controlled by direct pressure ?? When to get medical advice Call your healthcare provider right away if any of the following occur: ??? Signs of infection, including increasing pain in the wound, redness, swelling, or pus coming from the wound ??? Fever of 100.4??F (38??C) or higher, or as advised by your provider ??? Chills ??? Stitches or charisma come apartor fall out before 7 days ??? Wound edges reopen ?? Last Reviewed Date: 2022 ?? [employer]. All rights reserved. This information is not intended as a substitute for professional medical care. Always follow your healthcare professional's instructions. ?? Portable XR Chest Views [facility] , CIS S: TRANSCRIBE Grisel Lopez MD O: VERIFY Event Display: Result: Authored Date: [id number] Chest Portable Reason: Other:; Clinical Question(s): Other: COMPARISON: None. FINDINGS: LINES AND TUBES: None. LUNGS AND PLEURA: Clear lungs. Normal pulmonary vascularity. No pleural effusion. No pneumothorax. HEART, MEDIASTINUM AND CAMRYN: Heart is normal in size. Normal mediastinal and hilar contour. BONES AND SOFT TISSUES: No acute abnormality. IMPRESSION: No acute abnormality. WSN: [id number] Ordering Physician: Oleg Burton Dictated By: Grisel Lopez MD Dictated Date/Time: 10/05/22 4:12 am Reviewed By: Grisel Lopez MD Signed By: Grisel Lopez MD Signed Date/Time: 10/05/22 4:12 am Transcribed By: JUNE Transcribed Date/Time: 10/05/22 4:[address] Abdomen and Pelvis W contrast IV [facility] , CIS S: TRANSCRIBE Power Huynh MD A: ANGIE Hickey MD, Renzo: VERIFY Event Display: Result: Authored Date: CT Chest W/ Contrast, CT Abd/Pelvis W/ IV Contrast Only INDICATION: Reason: Other:; Chest trauma, blunt; Clinical Question(s): Other:; Aortic hilar injury TECHNIQUE: Helical CT scan of the chest, abdomen, and pelvis with IV contrast, formatted in 3 planes. 100 cc of Omnipaque 300 was administered intravenously. This study was performed without oral contrast. Weight-based protocol was performed using automatic exposure control. CTDIvol Body: 10.90 mGy, DLP Body: 860 mGy*cm. COMPARISON: None. FINDINGS: Promotional Demonstrator view findings, lines and tubes: None. Trachea and airways: Patent without evidence of tracheal or endobronchial lesion. Lungs and pleura: Mild subsegmental atelectasis in the dependent lower lobes. No consolidation. 6 with a nodule in the left lower lobe abutting the major fissure (axial 58). 4 mm nodule at the left apex (axial 25). 3 mm nodule at the right apex (axial 27). No effusion or pneumothorax. Mediastinum and camryn: No mass or hematoma. No mediastinal or hilar lymphadenopathy. No esophageal abnormality. Normal thyroid. Heart: Moderate cardiomegaly. No pericardial effusion. Severe coronary artery calcification. Severe aortic valve and mitral annulus calcifications. Aorta: Severe atherosclerotic vascular calcification but no aneurysm. Pulmonary arteries: Dilated main pulmonary artery measuring up to 3.7cm in caliber, which may be seen with pulmonary hypertension. No evidence of pulmonary embolism on this study performed without angiographic technique. Chest wall soft tissues: No acute abnormality. Diaphragm: Intact. Liver: Normal in attenuation and morphology. No suspicious lesion. Gallbladder: No CT evidence of gallbladder pathology. Bile ducts: No biliary ductal dilation. 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 Pancreas: 1.5 cm rim-calcified focus in the pancreatic tail (axial 99). Adrenal glands: No nodule. Kidneys and ureters: No hydronephrosis, stone, or suspicious lesion. Bladder: No wall thickening or surrounding stranding. Reproductive organs: Unremarkable. Stomach, small bowel, and large bowel: The stomach is normal. The small and large bowel are normal in caliber without evidence of obstruction. Appendix: Normal. Peritoneum and retroperitoneum: No ascites or pneumoperitoneum. No omental or mesenteric lesions. Lymph nodes: No enlarged lymph nodes. Blood vessels: Moderate atherosclerotic vascular calcification. No aortic aneurysm. No evidence of venous thrombosis. Abdominal and pelvic wall soft tissues: No acute abnormality. Bones: No acute abnormality. Multilevel bridging osteophytes in the thoracic spine. Multilevel disc space narrowing, endplate osteophytosis and disc osteophyte complex these in the lumbar spine, with severe multilevel canal stenosis. Multilevel neural foraminal narrowing. IMPRESSION: 1. No traumatic injury to the chest, abdomen or pelvis. 2. Pulmonary nodules measuring up to 6 mm. Correlation with prior imaging is recommended. Optional follow-up in 12 months if the patient is at high risk. 3. Absent spleen. 4. 1.5 cm rim calcified focus at the pancreatic tail. Statistically, this most likely represents a calcified small cyst or pseudocyst. Again, correlation with prior imaging will be helpful. If no priorimaging is available, MRI will provide better characterization. 5. Severe degenerative changes of the lumbar spine. Multilevel spinal canal and neural foraminal stenosis in the lumbar region. I have personally reviewed the images and I agree with this report. WSN: [id number] Ordering Physician: Oleg Burton Dictated By: Power Huynh MD Dictated Date/Time: 10/05/22 7:23 am Reviewed By: Renzo Hickey MD Signed By: Renzo Hickey MD Signed Date/Time: 10/05/22 7:28 am Transcribed By: JUNE Transcribed Date/Time: 10/05/22 4:[address] Chest W contrast IV [facility] , CIS S: TRANSCRIBE Power Huynh MD A: SIGN Renzo Hickey MD: VERIFY Event Display: Result: Authored Date: [id number] CT Chest W/ Contrast, CT Abd/Pelvis W/ IV Contrast Only INDICATION: Reason: Other:; Chest trauma, blunt; Clinical Question(s): Other:; Aortic hilar injury TECHNIQUE: Helical CT scan of the chest, abdomen, and pelvis with IV contrast, formatted in 3 planes. 100 cc of Omnipaque 300 was administered intravenously. This study was performed without oral contrast. Weight-based protocol was performed using automatic exposure control. CTDIvol Body: 10.90 mGy, DLP Body: 860 mGy*cm. COMPARISON: None. FINDINGS: Promotional Demonstrator view findings, lines and tubes: None. Trachea and airways: Patent without evidence of tracheal or endobronchial lesion. Lungs and pleura: Mild subsegmental atelectasis in the dependent lower lobes. No consolidation. 6 with a nodule in the left lower lobe abutting the major fissure (axial 58). 4 mm nodule at the left apex (axial 25). 3 mm nodule at the right apex (axial 27). No effusion or pneumothorax. Mediastinum and camryn: No mass or hematoma. No mediastinal or hilar lymphadenopathy. No esophageal abnormality. Normal thyroid. Heart: Moderate cardiomegaly. No pericardial effusion. Severe coronary artery calcification. Severe aortic valve and mitral annulus calcifications. Aorta: Severe atherosclerotic vascular calcification but no aneurysm. Pulmonary arteries: Dilated main pulmonary artery measuring up to 3.7cm in caliber, which may be seen with pulmonary hypertension. No evidence of pulmonary embolism on this study performed without angiographic technique. Chest wall soft tissues: No acute abnormality. Diaphragm: Intact. Liver: Normal in attenuation and morphology. No suspicious lesion. Gallbladder: No CT evidence of gallbladder pathology. Bile ducts: No biliary ductal dilation. 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 Pancreas: 1.5 cm rim-calcified focus in the pancreatic tail (axial 99). Adrenal glands: No nodule. Kidneys and ureters: No hydronephrosis, stone, or suspicious lesion. Bladder: No wall thickening or surrounding stranding. Reproductive organs: Unremarkable. Stomach, small bowel, and large bowel: The stomach is normal. The small and large bowel are normal in caliber without evidence of obstruction. Appendix: Normal. Peritoneum and retroperitoneum: No ascites or pneumoperitoneum. No omental or mesenteric lesions. Lymph nodes: No enlarged lymph nodes. Blood vessels: Moderate atherosclerotic vascular calcification. No aortic aneurysm. No evidence of venous thrombosis. Abdominal and pelvic wall soft tissues: No acute abnormality. Bones: No acute abnormality. Multilevel bridging osteophytes in the thoracic spine. Multilevel disc space narrowing, endplate osteophytosis and disc osteophyte complex these in the lumbar spine, with severe multilevel canal stenosis. Multilevel neural foraminal narrowing. IMPRESSION: 1. No traumatic injury to the chest, abdomen or pelvis. 2. Pulmonary nodules measuring up to 6 mm. Correlation with prior imaging is recommended. Optional follow-up in 12 months if the patient is at high risk. 3. Absent spleen. 4. 1.5 cm rim calcified focus at the pancreatic tail. Statistically, this most likely represents a calcified small cyst or pseudocyst. Again, correlation with prior imaging will be helpful. If no priorimaging is available, MRI will provide better characterization. 5. Severe degenerative changes of the lumbar spine. Multilevel spinal canal and neural foraminal stenosis in the lumbar region. I have personally reviewed the images and I agree with this report. WSN: [id number] Ordering Physician: Oleg Burton Dictated By: Power Huynh MD Dictated Date/Time: 10/05/22 7:23 am Reviewed By: Renzo Hickey MD Signed By: Renzo Hickey MD Signed Date/Time: 10/05/22 7:28 am Transcribed By: JUNE Transcribed Date/Time: 10/05/22 4:[address] Cervical spine WO contrast [facility] , LAUREN S: TRANSCRIBE Grisel Lopez MD O: VERIFY Power Huynh MD: SIGN Event Display: Result: Authored Date: [id number] CT Head/Brain W/O Contrast, CT Maxilloface W/O Contrast, CT Cervical Spine W/O Contrast Reason: Other:; Head trauma, mod-severe; Clinical Question(s): Hematoma. TECHNIQUE: Incremental CT without contrast through the head was formatted in axial and coronal planes. Spiral CT without contrast through the cervical spine was formatted in [address] withoutcontrast through the maxillofacial head was reformatted in 3 planes with additional thin reformats. Weight-based protocol using automatic tube modulation was used to optimize exposure parameters. CTDIvol Body: 13.50 mGy, DLP Body: 339 mGy*cm. CTDIvol Head: 32.85 mGy, DLP Head: 1477 mGy*cm. COMPARISON: None. FINDINGS: BRAIN and EXTRA-AXIAL SPACES: No parenchymal hemorrhage, midline shift or mass effect. Marcos-white matter differentiation is well preserved. No acute infarct. Negative insular ribbon sign. Atherosclerotic vascular calcification of the carotid arteries but negative hyperdense vessel sign. Ventricles, sulci and basilar cisterns are normal. Mild low-density white matter changes. No subarachnoid hemorrhage, subdural or epidural collections. CALVARIUM, SKULL BASE AND SOFT TISSUES: No fractures or suspicious bony lesions. Mild mucosal thickening in the maxillary sinuses. Trace fluid in the right posterior mastoid air cells. Visualized orbits and globes are intact. Right parietal scalp laceration status post surgical repair. Small right frontal scalp hematoma. MAXILLOFACE: Periorbital soft tissues: No swelling. Orbital soft tissues: Normal. No hemorrhage or ocular injury. Frontal bones: No fracture. Orbital tena: No fracture. Nasal bones: Mildly displaced left nasal bone fracture. Frontal processes of maxilla: No fracture. Nasal Septum: No fracture. Anterior nasal spine: Intact. Maxillary bones: No fracture. Alveolus: No fracture or avulsed teeth. Zygomatic arches: No fracture. No overlying soft tissue swelling. Pterygoid plates: Intact bilaterally. Mandible: No fracture or dislocation. CERVICAL SPINE: No fracture. No acute osseous abnormalities. Normal alignment. No locked or perched facet. Multilevel disc space narrowing, uncovertebral spurring, endplate osteophytosis and disc osteophyte complexes. Moderate multilevel canal stenosis. Moderatemultilevel neural foraminal narrowing. OTHER BONES: No acute abnormality. CERVICAL SOFT TISSUES AND consistent with scarring. Underlying superimposed areas of malignancy cannot be excluded. . Bilateral carotid bulb calcifications. There are small pockets of gas in anterior right neck veins which is likely iatrogenic. IMPRESSION: 1. No skull fracture or intracranial bleed. 2. Non-displaced left nasal bone fracture. 3. Moderate degenerative changes of the cervical spine, but no acute traumatic injury. I have personally reviewed the images and I agree with this report. WSN: [id number] Ordering Physician: Oleg Burton Dictated By: Power Huynh MD Dictated Date/Time: 10/05/22 7:31 am Reviewed By: Girsel Lopez MD Signed By: Grisel Lopez MD Signed Date/Time: 10/05/22 7:36 am Transcribed By: JUNE Transcribed Date/Time: 10/05/22 4:[address] Maxillofacial region WO contrast [facility] , CIS S: TRANSCRIBE Grisel Lopez MD: VERIFY Power Huynh MD: SIGN Event Display: Result: Authored Date: [id number] CT Head/Brain W/O Contrast, CT Maxilloface W/O Contrast, CT Cervical Spine W/O Contrast Reason: Other:; Head trauma, mod-severe; Clinical Question(s): Hematoma. TECHNIQUE: Incremental CT without contrast through the head was formatted in axial and coronal planes. Spiral CT without contrast through the cervical spine was formatted in [address] withoutcontrast through the maxillofacial head was reformatted in 3 planes with additional thin reformats. Weight-based protocol using automatic tube modulation was used to optimize exposure parameters. CTDIvol Body: 13.50 mGy, DLP Body: 339 mGy*cm. CTDIvol Head: 32.85 mGy, DLP Head: 1477 mGy*cm. COMPARISON: None. FINDINGS: BRAIN and EXTRA-AXIAL SPACES: No parenchymal hemorrhage, midline shift or mass effect. Marcos-white matter differentiation is well preserved. No acute infarct. Negative insular ribbon sign. Atherosclerotic vascular calcification of the carotid arteries but negative hyperdense vessel sign. Ventricles, sulci and basilar cisterns are normal. Mild low-density white matter changes. No subarachnoid hemorrhage, subdural or epidural collections. CALVARIUM, SKULL BASE AND SOFT TISSUES: No fractures or suspicious bony lesions. Mild mucosal thickening in the maxillary sinuses. Trace fluid in the right posterior mastoid air cells. Visualized orbits and globes are intact. Right parietal scalp laceration status post surgical repair. Small right frontal scalp hematoma. MAXILLOFACE: Periorbital soft tissues: No swelling. Orbital soft tissues: Normal. No hemorrhage or ocular injury. Frontal bones: No fracture. Orbital tena: No fracture. Nasal bones: Mildly displaced left nasal bone fracture. Frontal processes of maxilla: No fracture. Nasal Septum: No fracture. Anterior nasal spine: Intact. Maxillary bones: No fracture. Alveolus: No fracture or avulsed teeth. Zygomatic arches: No fracture. No overlying soft tissue swelling. Pterygoid plates: Intact bilaterally. Mandible: No fracture or dislocation. CERVICAL SPINE: No fracture. No acute osseous abnormalities. Normal alignment. No locked or perched facet. Multilevel disc space narrowing, uncovertebral spurring, endplate osteophytosis and disc osteophyte complexes. Moderate multilevel canal stenosis. Moderatemultilevel neural foraminal narrowing. OTHER BONES: No acute abnormality. CERVICAL SOFT TISSUES AND consistent with scarring. Underlying superimposed areas of malignancy cannot be excluded. . Bilateral carotid bulb calcifications. There are small pockets of gas in anterior right neck veins which is likely iatrogenic. IMPRESSION: 1. No skull fracture or intracranial bleed. 2. Non-displaced left nasal bone fracture. 3. Moderate degenerative changes of the cervical spine, but no acute traumatic injury. I have personally reviewed the images and I agree with this report. WSN: [id number] Ordering Physician: Oleg Burton Dictated By: Power Huynh MD Dictated Date/Time: 10/05/22 7:31 am Reviewed By: Grisel Lopez MD Signed By: Grisel Lopez MD Signed Date/Time: 10/05/22 7:36 am Transcribed By: JUNE Transcribed Date/Time: 10/05/22 4:[address] Head WO contrast [facility] , CIS S: TRANSCRIBE Grisel Lopez MD: VERIFY Power Huynh MD: SIGN Event Display: Result: Authored Date: [id number] CT Head/Brain W/O Contrast, CT Maxilloface W/O Contrast, CT Cervical Spine W/O Contrast Reason: Other:; Head trauma, mod-severe; Clinical Question(s): Hematoma. TECHNIQUE: Incremental CT without contrast through the head was formatted in axial and coronal planes. Spiral CT without contrast through the cervical spine was formatted in [address] withoutcontrast through the maxillofacial head was reformatted in 3 planes with additional thin reformats. Weight-based protocol using automatic tube modulation was used to optimize exposure parameters. CTDIvol Body: 13.50 mGy, DLP Body: 339 mGy*cm. CTDIvol Head: 32.85 mGy, DLP Head: 1477 mGy*cm. COMPARISON: None. FINDINGS: BRAIN and EXTRA-AXIAL SPACES: No parenchymal hemorrhage, midline shift or mass effect. Marcos-white matter differentiation is well preserved. No acute infarct. Negative insular ribbon sign. Atherosclerotic vascular calcification of the carotid arteries but negative hyperdense vessel sign. Ventricles, sulci and basilar cisterns are normal. Mild low-density white matter changes. No subarachnoid hemorrhage, subdural or epidural collections. CALVARIUM, SKULL BASE AND SOFT TISSUES: No fractures or suspicious bony lesions. Mild mucosal thickening in the maxillary sinuses. Trace fluid in the right posterior mastoid air cells. Visualized orbits and globes are intact. Right parietal scalp laceration status post surgical repair. Small right frontal scalp hematoma. MAXILLOFACE: Periorbital soft tissues: No swelling. Orbital soft tissues: Normal. No hemorrhage or ocular injury. Frontal bones: No fracture. Orbital tena: No fracture. Nasal bones: Mildly displaced left nasal bone fracture. Frontal processes of maxilla: No fracture. Nasal Septum: No fracture. Anterior nasal spine: Intact. Maxillary bones: No fracture. Alveolus: No fracture or avulsed teeth. Zygomatic arches: No fracture. No overlying soft tissue swelling. Pterygoid plates: Intact bilaterally. Mandible: No fracture or dislocation. CERVICAL SPINE: No fracture. No acute osseous abnormalities. Normal alignment. No locked or perched facet. Multilevel disc space narrowing, uncovertebral spurring, endplate osteophytosis and disc osteophyte complexes. Moderate multilevel canal stenosis. Moderatemultilevel neural foraminal narrowing. OTHER BONES: No acute abnormality. CERVICAL SOFT TISSUES AND consistent with scarring. Underlying superimposed areas of malignancy cannot be excluded. . Bilateral carotid bulb calcifications. There are small pockets of gas in anterior right neck veins which is likely iatrogenic. IMPRESSION: 1. No skull fracture or intracranial bleed. 2. Non-displaced left nasal bone fracture. 3. Moderate degenerative changes of the cervical spine, but no acute traumatic injury. I have personally reviewed the images and I agree with this report. WSN: [id number] Ordering Physician: Oleg Burton Dictated By: Power Huynh MD Dictated Date/Time: 10/05/22 7:31 am Reviewed By: Grisel Lopez MD Signed By: Grisel Lopez MD Signed Date/Time: 10/05/22 7:36 am Transcribed By: JUNE Transcribed Date/Time: 10/05/22 4:03 am XR Hand - left GE 3 Views [facility] , CIS S: TRANSCRIBE Grisel Lopez MD: VERIFY Event Display: Result: Authored Date: [id number] Hand Min 3 Views Left, 3 views Reason: Trauma; with Pain; Clinical Question(s): Fracture COMPARISON: None. FINDINGS: There is no evidence of acute fracture or dislocation. There are osteoarthritic changes in the first carpometacarpal joint with spurring. There are atherosclerotic vascular calcifications. IMPRESSION: Osteoarthritic changes without evidence of acute fracture or dislocation. WSN: [id number] Ordering Physician: Barbara Nguyen Dictated By: Grisel Lopez MD Dictated Date/Time: 10/05/22 8:51 am Reviewed By: Grisel Lopez MD Signed By: Grisel Lopez MD Signed Date/Time: 10/05/22 8:51 am Transcribed By: JUNE Transcribed Date/Time: 10/05/22 8:49 am XR Hand - right GE 3 Views [facility] , CIS S: TRANSCRIBE Renzo Hickey MD: VERIFY Event Display: Result: Authored Date: [id number] Hand Min 3 Views Right, 3 views Reason: Trauma; with Pain; Clinical Question(s): Fracture COMPARISON: None. FINDINGS: No fractures or bone lesions. Bone mineralization is normal. No arthritic changes. Extensive arterial wall calcification. Soft tissues are otherwise normal. IMPRESSION: No osseous or joint space abnormality. Extensive arterial calcification. WSN: [id number] Ordering Physician: Barbara Nguyen Dictated By: Renzo Hickey MD Dictated Date/Time: 10/05/22 9:12 am Reviewed By: Renzo Hickey MD Signed By: Renzo Hickey MD Signed Date/Time: 10/05/22 9:12 am Transcribed By: JUNE Transcribed Date/Time: 10/05/22 9:10 am Patient Care team information Care Team PersonnelName: Not on Staff, PCP Position: [facility] Physician (General Medicine) Member Role: PCP Name: *[facility], Trauma Attending Position: [facility] ED Attendings Patient Name: Kia Tony RN Position: [facility] ED RN W/OE and Tasks Member Role: Patient Care Provider Name: Agustin Luis Position: [facility] ED TA [facility] 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
--- OUTSIDE RECORDS SUMMARY | 2022-10-11 20:27 | XMS_ITS | Continuity of Care Document ---
:1955 Author Organization [facility] Address [address] [place] [address]- Care Team Providers Name Role Phone Rodolfo Lopes MD Primary Care Physician Encounter [facility] Date(s): 10/17/20 - 10/19/[address] [id number] Discharge Disposition: A-D/C Home Attending Physician: Faviola Alston MD Admitting Physician: Rigo Staton MD Referring Physician: Not on Staff, Referring MD Allergies, Adverse Reactions, Alerts Substance Reaction Severity Status NKA Active Immunizations Given and Recorded Vaccine Date Status Refusal Reason influenza virus vaccine, inactivated 10/19/20 Given Medications aspirin 81 mg oral delayed release tablet 81 mg, By Mouth, Daily, # 30 tablet, Refills 1, Tot. Refills 1, Maintenance, 10/19/20 12:17:00 EST, Route to Pharmacy Electronically, [facility], Partial fill upon patient request if the prescription is for a schedule II opioid drug., 18... Start Date: 10/19/20 Status: Orderedatorvastatin 40 mg oral tablet 1 tablet = 40 mg, By Mouth, Daily at bedtime, # 30 tablet, 1 Refills, Maintenance, 10/19/20 12:17:00EST, Tablet, [facility], Partial fill upon patient request [...] mg oral tablet, extended release 25 mg, XL Tablet, By Mouth, 10/19/20 9:00:00 EST Start Date: 10/19/20 Stop Date: 10/19/20 Status: Completedmetoprolol 25 mg oral tablet, extended release 25 mg, 1, tablet, By Mouth, Daily, # 30 tablet, Refills 1, Tot. Refills 1, Maintenance, 10/19/20 12:16:00 EST, Route to Pharmacy Electronically, [facility], Partial fill upon patient request if the prescription is for a schedule II opioi... Start Date: 10/19/20 Status: Orderedticagrelor 90 mg oral tablet 1 tablet = 90 mg, By Mouth, 2 times a day, # 60 tablet, 1 Refills, Maintenance, 10/19/20 12:16:00 EST, Tablet, [facility], Partial fill upon patient request if the prescription is for a schedule II opioid drug., 180, cm, 10/19/20 8:05:00... Start Date: 10/19/20 Status: Ordered Vital Signs Most recent to oldest 1 2 3 4 [Reference Range]: Height 180 cm 180 cm 180 cm (10/19/20 8:05 AM) (10/19/20 3:35 AM) (10/18/20 8:19 PM) Weight 90 kg 89.1 kg 88.9 kg 89.1 kg (10/19/20 3:35 AM) (10/17/20 10:24 PM) (10/17/20 7:26 PM) ( 7:26 PM) Oxygen Saturation 98 % 97 % 99 % [94-100 %] (10/19/20 8:05 AM) (10/19/20 3:35 AM) (10/18/20 8:19 PM) Pulse Rate [55-90 bpm] 72 bpm 76 bpm 59 bpm (10/19/20 10:28 AM) (10/19/20 8:05 AM) (10/19/20 3:35 AM) Body Mass Index 27.78 27.5 [18.5-24.99] *H* *H* (10/19/20 3:35 AM) (10/17/20 7:26 PM) Blood Pressure 144/83 mm Hg 135/78 mm Hg 144/74 mm Hg [90-138/55-84 mm Hg] *H* (10/19/20 8:05 AM) *H* (10/19/20 10:28 AM) (10/19/20 3:35 AM) Respiratory Rate [16-30 18 br/min 18 br/min 18 br/min br/min] (10/19/20 8:05 AM) (10/19/20 3:35 AM) (10/18/20 8:19 PM) Temperature [96.8-100.4 98.2 DegF 98.1 DegF 97.9 DegF DegF] (10/19/20 8:05 AM) (10/19/20 3:35 AM) (10/18/20 8:19 PM) Mode of Delivery Room air Room air Room air (Oxygen) (10/19/20 8:05 AM) (10/19/20 3:35 AM) (10/18/20 8:19 PM) Blood pressure sites Arm, left Arm, right Arm, left (10/19/20 8:05 AM) (10/19/20 3:35 AM) (10/18/20 8:19 PM) Temperature Route Oral Oral Oral (10/19/20 8:05 AM) (10/19/20 3:35 AM) (10/18/20 8:19 PM) Dry Weight 89.1 kg 89.1 kg (10/17/20 10:24 PM) (10/17/20 7:26 PM) Weight Obtained Via Bed scale Bed scale Bed scale (10/19/20 3:35 AM) (10/17/20 10:24 PM) (10/17/20 7:26 PM) Dry Weight Obtained Via Bed scale Bed scale (10/17/20 10:24 PM) (10/17/20 7:26 PM)
== END 2022-10-11 23:45 | disposition left against medical advice (07) ==
PROVIDERS: Emergency Provider Emergency Medicine
DX: M54.2 Cervicalgia (principal)
CPT/HCPCS: 99281

== ENCOUNTER 2023-09-26 09:18 | Outpatient (REF) | payer OTHER, SELFPAY ==
[2023-09-26 11:16] LABS: MANUAL DIFF FLAG NO
[2023-09-26 11:31] LABS: Basophils Percent Auto 0.4 % (0-2); Eosinophils Absolute Auto 0.1 X10*3/uL (0.0-0.4); Hematocrit 44.2 % (42.0-52.0); Imm Gran Abs Auto 0.02 X10*3/uL (0.00-0.03); Imm Gran Pct Auto 0.3 % (0.0-0.4); Lymphocytes Absolute Auto 2.2 X10*3/uL (1.2-4.9); Lymphocytes Percent Auto 30.4 % (20-40); Mean Corpuscular HGB Conc 33.9 g/dl (31.0-36.0); Mean Corpuscular Hemoglobin 31.4 pg (27.0-33.0); Mean Corpuscular Volume 92.7 fL (80.0-98.0); Mean Platelet Volume 12.7 fL (9.4-12.4); Monocytes Absolute Auto 1.1 X10*3/uL (0.1-1.2); Monocytes Percent Auto 15.4 % (2-11); Neutrophils Absolute Auto 3.8 x10*3/uL (2.0-8.3); Neutrophils Percent Auto 52.5 % (45-73); Red Blood Count 4.77 X10*6/uL (4.60-5.80); Red Cell Distribution Width 14.2 % (11.0-16.0); White Blood Count 7.2 X10*3/uL (4.8-10.8)
[2023-09-26 11:38] LABS: Estimated Average Glucose 111 mg/dL; Hemoglobin A1c % 5.5 % (<6.0)
[2023-09-26 11:49] LABS: Anion Gap 10 (12-20); Blood Urea Nitrogen 15 mg/dL (9-16); Calcium 9.8 mg/dL (8.4-10.2); Carbon Dioxide 30 mmol/L (22-29); Chloride 102 mmol/L (96-108); Cholesterol 153 mg/dL (<200); Estimated Glomerular Filt Rate > 60; Glucose Random 104 mg/dL (60-115); HDL Cholesterol 51 mg/dL (>40); LDL Cholesterol Calculated 89 mg/dL (<100); Potassium 4.2 mmol/L (3.3-5.1); Sodium 138 mmol/L (135-145); Triglycerides 65 mg/dL (<150)
[2023-09-26 11:56] LABS: Platelet Count 209 X10*3/uL (160-400)
== END 2023-09-26 09:19 | disposition home or self-care (01) ==
LOC: HO.HHCL 09:18
PROVIDERS: Visit Provider Internal Medicine
DX: E11.9 Type 2 diabetes mellitus without complications (principal); I10 Essential (primary) hypertension
CPT/HCPCS: 36415; 80048; 80061; 83036; 85025

== ENCOUNTER 2023-10-08 14:50 | Outpatient (AMB) | payer MEDICARE, MEDICAID, SELFPAY ==
--- NOTE | 2023-10-08 14:54 | A.OFFVIS_ITS ---
Intake Vital Signs 10/08/23 14:55 10/08/23 15:15 Height 5 ft 11 in Weight 195 lb 12.328 oz BMI 27.3 BP 150/76 H 152/72 H Blood Pressure Location Lt brachial Lt brachial Position Sitting Sitting Pulse 51 Intake Visit Reasons: 1 yr fu (KM) Intake Note: 1 yr f/up/ pt its feeling fine Ui Developer Required: No Accompanied by: Self / Same As Patient Allergies No Known Allergies Allergy (Verified 10/08/23 15:13) Medication List - Last Reconciled 10/08/23 by Arlene Robledo NP amlodipine 5 mg PO DAILY aspirin (Adult Low Dose Aspirin) 81 mg PO DAILY atorvastatin 40 mg PO DAILY enalapril maleate 20 mg PO BID ezetimibe 10 mg PO DAILY ibuprofen 600 mg PO Q8H PRN metformin 500 mg PO metoprolol succinate ER 50 mg PO DAILY HPI HPI Comments History of Present Illness Details 67-year-old male presents today for a on e year follow-up. He states he has been doing well but having issues with his blood pressures at home. He has been getting 140s-150 systolic at home. He said he never got a refill for his aspirin 81mg and hasnt taken it recently. Denies chest pain or shortness of breath. [facility] Medical History Bleeding hemorrhoids Hyperlipidemia CAD (coronary artery disease) Hypertension Diabetes Surgical History Hx of colonoscopy (~2012) S/P cardiac catheterization (~10/2020) Family History Mother Diabetes Hypertension Heart problem Father No problems noted. Social History Alcohol intake: current Alcohol intake frequency: a few times a month Patient Tobacco Use Status: Former Tobacco user Tobacco use type: Cigarette Years Smoked: 4 Review of Systems Const Denies chills, Denies fatigue, Denies fever(s), Denies frequent falls, Denies weakness, Denies weight gain and Denies weight loss ENT Denies dizziness Card Denies chest pain, Denies leg edema, Denies lightheadedness, Denies palpitations, Denies dyspnea and Denies dyspnea on exertion Resp Denies cough, Denies dyspnea and Denies dyspnea on exertion GI Denies hematochezia Musc Denies abnormal gait, Denies muscle weakness, Denies numbness, Denies radiating pain into limb and Denies tingling Neuro Denies abnormal gait, Denies dizziness, Denies frequent falls, Denies numbness, Denies tingling and Denies weakness Endo Denies fatigue and Denies palpitations Physical Exam Vital Signs: Last Vital Signs Pulse 51 10/08/23 14:55 BP 150/76 H 10/08/23 14:55 BMI result Body Mass Index 27.3 Const General: healthy appearing and no acute distress Orientation/consciousness: patient oriented x3 HEENT Head: Yes normal to inspection Eyes General: appearance normal, both eyes and all related structures Neck Neck: Yes normal visual inspection Chest Chest palpation & inspection: normal inspection of the chest Resp Effort & Inspection: normal respiratory effort Auscultation: clear to auscultation bilaterally Cardio Jugular venous distension: no JVD Palpation: normal PMI Rate: regular rate Rhythm: regular rhythm Heart sounds: S1 normal heart sound present, S2 normal heart sound present, no click, no gallops, no murmurs and no rubs GI Inspection: Yes normal to inspection Palpation (GI): Soft to palpation Skin General skin exam: no rashes or lesions noted Neuro General: patient oriented x3 Extrem General: Yes normal to inspection Psych Appearance: grossly normal Office Procedures EKG Details: EKG today. rate 51pm. QRS 94ms. QTc 383ms. Sinus Bradycardia [id number], Complete Assessment & Plan Assessment & Plan (1) CAD (coronary artery disease): Comment: Stable. He is status post left circumflex artery stent. Code(s): I25.10 - Atherosclerotic heart disease of [place] coronary artery without angina pectoris Qualifiers: Coronary Disease-Associated Artery/Lesion type: [place] artery [place] vs. transplanted heart: [place] heart Associated angina: without angina Qualified Code(s): I25.10 - Atherosclerotic heart disease of [place] coronary artery without angina pectoris (2) Hyperlipidemia: Code(s): E78.5 - Hyperlipidemia, unspecified Qualifiers: Hyperlipidemia type: unspecified Qualified Code(s): E78.5 - Hyperlipidemia, unspecified (3) Hypertension: Code(s): I10 - Essential (primary) hypertension (4) S/P cardiac catheterization: Onset Date: ~10/2020 Comment: Distal circumflex 99% stenosis, LANCE placed Code(s): Z98.890 - Other specified postprocedural states Plan Last LDL on 09/26/23 89. Resent ASA 81mg. Continue that indefinetly. Can increase amlodipine to 10mg. Check blood pressures at home. In office blood pressure check in 1-2 weeks. Bring readings then. Cut back on salt in diet. Medications: New aspirin (Adult Low Dose Aspirin) 81 mg PO DAILY 90 days 90 tabs 3RF Changed From amlodipine 5 mg PO DAILY To amlodipine 10 mg PO DAILY 30 days 30 tabs 4RF Coding Level of Care Code Est Pt Level 4 (70156) Diagnoses Coronary artery disease involving [place] coronary artery of [place] heart without angina pectoris I25.10 Coronary Disease-Associated Artery/Lesion type: [place] artery [place] vs. transplanted heart: [place] heart Associated angina: without angina Hyperlipidemia, unspecified hyperlipidemia type E78.5 Hyperlipidemia type: unspecified Hypertension I10 S/P cardiac catheterization Z98.890 CPT Codes EKG - CPT: 68654-[id number], Complete ([id number])
[2023-10-08 14:55] VITALS: BP 150/76; PULSE 51; BMI 27.3
[2023-10-08 15:15] VITALS: BP 152/72
== END 2023-10-08 15:31 | disposition home or self-care (01) ==
PROVIDERS: Visit Provider Nurse Practitioner
DX: I25.10 Atherosclerotic heart disease of native coronary artery without angina pectoris (principal); E78.5 Hyperlipidemia, unspecified; I10 Essential (primary) hypertension; Z98.890 Other specified postprocedural states
CPT/HCPCS: 93010; 99214

== ENCOUNTER → 2023-10-08 14:50 | Outpatient (BNVA) | payer OTHER, SELFPAY | PROVIDERS: Visit Provider Nurse Practitioner | DX: I25.10 Atherosclerotic heart disease of native coronary artery without angina pectoris (principal); I10 Essential (primary) hypertension; E78.5 Hyperlipidemia, unspecified; Z98.890 Other specified postprocedural states | CPT/HCPCS: 93005; 99212 ==

== ENCOUNTER → 2023-10-22 14:43 | Outpatient (BNVA) | payer OTHER, SELFPAY | PROVIDERS: Visit Provider Nurse Practitioner ==

== ENCOUNTER 2023-11-14 12:04 | Outpatient (REF) | payer OTHER, SELFPAY ==
[2023-11-14 15:18] LABS: Creatinine Urine 58.27 mg/dL; Microalbum/Creatinine Ratio Ur 17.1 ug/mg cr (<30)
== END 2023-11-14 12:05 | disposition home or self-care (01) ==
LOC: HO.HHCL 12:04
PROVIDERS: Visit Provider Internal Medicine
DX: E11.9 Type 2 diabetes mellitus without complications (principal)
CPT/HCPCS: 82043; 82570

== ENCOUNTER 2024-01-21 14:48 | Outpatient (AMB) | payer OTHER, SELFPAY ==
--- NOTE | 2024-01-21 14:50 | A.OFFVIS_ITS ---
Intake Vital Signs 01/21/24 14:51 Height 5 ft 11 in Weight 198 lb 13.711 oz BMI 27.7 BP 112/60 Blood Pressure Location Lt brachial Position Sitting Pulse 68 Intake Visit Reasons: 3mth f/up- km pt Intake Note: 3 month follow up PT feels good Allergies No Known Allergies Allergy (Verified 01/21/24 15:03) Medication List - Last Reconciled 01/21/24 by Arlene Robledo NP amlodipine 10 mg PO DAILY 30 days aspirin (Adult Low Dose Aspirin) 81 mg PO DAILY 90 days atorvastatin 40 mg PO DAILY enalapril maleate 20 mg PO BID ezetimibe 10 mg PO DAILY ibuprofen 600 mg PO Q8H PRN metformin 500 mg PO metoprolol succinate ER 50 mg (2 x 25 mg) PO DAILY 30 days HPI HPI Comments History of Present Illness Details 68-year-old male presents today for a fo llow-up. He reports he has been doing well. Declines chest pains, swelling, or shortness of breath. Blood pressures have improved. They are 130s systolic at most at home. He exercises daily at home. He does weights and goes for walks. Last visit amlodipine was increased to 10mg. [facility] Medical History Bleeding hemorrhoids Hyperlipidemia CAD (coronary artery disease) Hypertension Diabetes Surgical History Hx of colonoscopy (~2012) S/P cardiac catheterization (~10/2020) Family History Mother Diabetes Hypertension Heart problem Father No problems noted. Social History Alcohol intake: current Alcohol intake frequency: a few times a month Patient Tobacco Use Status: Former Tobacco user Tobacco use type: Cigarette Years Smoked: 4 Review of Systems Const Denies weakness ENT Denies dizziness Card Denies chest pain, Denies chest pain with activity, Denies syncope, Denies rapid heart rate, Denies pedal edema, Denies edema, Denies leg edema, Denies lightheadedness, Denies palpitations, Denies dyspnea, Denies dyspnea on exertion and Denies orthopnea Resp Denies cough, Denies dyspnea and Denies dyspnea on exertion GI Denies hematochezia and Denies change in stool character Musc Denies abnormal gait, Denies muscle cramps, Denies muscle weakness, Denies numbness, Denies radiating pain into limb and Denies tingling Neuro Denies abnormal gait, Denies dizziness, Denies syncope, Denies numbness, Denies tingling and Denies weakness Endo Denies palpitations Physical Exam Vital Signs: Last Vital Signs Pulse 68 01/21/24 14:51 BP 112/60 01/21/24 14:51 BMI result Body Mass Index 27.7 Const General: healthy appearing and no acute distress Orientation/consciousness: patient oriented x3 HEENT Head: Yes normal to inspection Eyes General: appearance normal, both eyes and all related structures Neck Neck: Yes normal visual inspection Chest Chest palpation & inspection: normal inspection of the chest Resp Effort & Inspection: normal respiratory effort Auscultation: clear to auscultation bilaterally Cardio Jugular venous distension: no JVD Palpation: normal PMI Rate: regular rate Rhythm: regular rhythm Heart sounds: S1 normal heart sound present, S2 normal heart sound present, no click, no gallops, no murmurs and no rubs GI Inspection: Yes normal to inspection Palpation (GI): Soft to palpation Skin General skin exam: no rashes or lesions noted Neuro General: patient oriented x3 Extrem General: Yes normal to inspection Psych Appearance: grossly normal Assessment & Plan Assessment & Plan (1) CAD (coronary artery disease): Comment: Stable. He is status post left circumflex artery stent. Code(s): I25.10 - Atherosclerotic heart disease of [place] coronary artery without angina pectoris Qualifiers: Associated angina: without angina Coronary Disease-Associated Artery/Lesion type: [place] artery [place] vs. transplanted heart: [place] heart Qualified Code(s): I25.10 - Atherosclerotic heart disease of [place] coronary artery without angina pectoris (2) Hypertension: Code(s): I10 - Essential (primary) hypertension (3) Hyperlipidemia: Code(s): E78.5 - Hyperlipidemia, unspecified Qualifiers: Hyperlipidemia type: unspecified Qualified Code(s): E78.5 - Hyperlipidemia, unspecified Plan Doing well. Not having anginal symptoms. ASA 81mg indefinitely. Last LDL was 89 in Sep 2023. Repeat fasting lipid panel. Blood pressure improved - continue amlodipine 10mg. Orders: Orders Basic Metabolic Panel 01/21/24 E78.5 - Hyperlipidemia, unspecified Lipid Panel 01/21/24 E78.5 - Hyperlipidemia, unspecified Coding Level of Care Code Est Pt Level 3 (82838) Diagnoses Coronary artery disease involving [place] coronary artery of [place] heart without angina pectoris I25.10 Associated angina: without angina Coronary Disease-Associated Artery/Lesion type: [place] artery [place] vs. transplanted heart: [place] heart Hypertension I10 Hyperlipidemia, unspecified hyperlipidemia type E78.5 Hyperlipidemia type: unspecified
[2024-01-21 14:51] VITALS: BP 112/60; PULSE 68; BMI 27.7
== END 2024-01-21 15:13 | disposition home or self-care (01) ==
PROVIDERS: Visit Provider Nurse Practitioner
DX: I25.10 Atherosclerotic heart disease of native coronary artery without angina pectoris (principal); I10 Essential (primary) hypertension; E78.5 Hyperlipidemia, unspecified
CPT/HCPCS: 99213

== ENCOUNTER → 2024-01-21 14:48 | Outpatient (BNVA) | payer OTHER, SELFPAY | PROVIDERS: Visit Provider Nurse Practitioner | DX: I25.10 Atherosclerotic heart disease of native coronary artery without angina pectoris (principal); I10 Essential (primary) hypertension; E78.5 Hyperlipidemia, unspecified | CPT/HCPCS: 99212 ==

== ENCOUNTER 2024-03-11 14:25 | Outpatient (REF) | payer OTHER, SELFPAY ==
[2024-03-11 15:35] LABS: Anion Gap 12 (12-20); Blood Urea Nitrogen 10 mg/dL (9-16); Calcium 9.4 mg/dL (8.4-10.2); Carbon Dioxide 28 mmol/L (22-29); Chloride 105 mmol/L (96-108); Cholesterol 136 mg/dL (<200); Estimated Glomerular Filt Rate > 60; Glucose Random 118 mg/dL (60-115); HDL Cholesterol 52 mg/dL (>40); LDL Cholesterol Calculated 68 mg/dL (<100); Sodium 141 mmol/L (135-145); Triglycerides 80 mg/dL (<150)
== END 2024-03-11 14:26 | disposition home or self-care (01) ==
LOC: HO.LAB 14:25
PROVIDERS: PCP Internal Medicine; Visit Provider Nurse Practitioner
DX: E78.5 Hyperlipidemia, unspecified (principal)
CPT/HCPCS: 36415; 80048; 80061

== ENCOUNTER 2025-08-09 18:48 | Emergency (ER) | payer MEDICARE, MEDICAID, SELFPAY ==
--- NOTE | 2025-08-09 | ECG_ITS ---
Test Reason : CP Blood Pressure : */* mmHG Vent. Rate : 74 BPM Atrial Rate : 74 BPM P-R Int : 144 ms QRS Dur : 94 ms QT Int : 378 ms P-R-T Axes : 58 5 25 degrees QTcB Int : 419 ms Normal sinus rhythm Normal ECG When compared with ECG of 08-Oct-2022 08:59, No significant change was found Referred By: Generic ED Physician Electronically Signed By: MARU LUBNI
--- NOTE | ~2025-08-09 | XR_ITS ---
CLINICAL HISTORY: pneumonia? SOB 1 view chest x-ray Comparison: None provided Findings: No consolidation or effusion. Heart size is normal. No acute fracture. IMPRESSION: 1. No acute findings. This document has been electronically signed by: Jo Buenrostro MD on 08/09/2025 20:24:40
--- NOTE | ~2025-08-09 | XR_ITS ---
CLINICAL HISTORY: back pain 4 views thoracic spine Comparison: None provided Findings: Normal alignment. No acute fractures or dislocation. Moderate multilevel spondylosis with disc space narrowing and anterior bridging bulky osteophytes. IMPRESSION: No acute findings. Moderate multilevel spondylosis. This document has been electronically signed by: Jo Buenrostro MD on 08/09/2025 20:25:13
[2025-08-09 19:05] VITALS: BP 132/77; PULSE 82; RESP 18; TEMP 36.4; O2SAT 98; BMI 27.0
--- NOTE | 2025-08-09 19:18 | ED.GENADULT ---
HPI - General Adult General Chief complaint: Back Pain/Injury Stated complaint: Chest pain Time Seen by Provider: 08/09/25 20:57 Source: patient Limitations: no limitations History of Present Illness ED Provider: Joselyn Omer PA-C HPI narrative: 69-year-old male with a history of hypertension, hyperlipidemia, diabetes, known coronary artery disease, prior NSTEMI, prior PCI, who presents with acute mid to upper back pain. Pain worse with movement. Denies new activity, heavy lifting or trauma that could have precipitated his symptoms. Patient also states he has been having muscle cramps in his calves. Denies chest pain, shortness of breath, cough cold symptoms, weakness of upper extremity or paresthesia. Related Data Home Medications ?Medication ?Instructions ?Recorded ?Confirmed metformin 500 mg tablet 500 mg PO 11/01/20 10/08/23 Previous Rx's ?Medication ?Instructions ?Recorded ibuprofen 600 mg tablet 600 mg PO Q8H PRN pain #20 tabs 10/08/22 atorvastatin 40 mg tablet 40 mg PO DAILY #30 tabs 10/29/23 enalapril maleate 20 mg tablet 20 mg PO BID #60 tabs 10/29/23 ezetimibe 10 mg tablet 10 mg PO DAILY #60 tabs 10/29/23 aspirin 81 mg tablet,delayed 81 mg PO DAILY 90 days #30 tabs 11/29/24 release (Adult Low Dose Aspirin) amlodipine 10 mg tablet 10 mg PO DAILY 30 days #30 tabs 12/28/24 metoprolol succinate 50 mg 50 mg PO DAILY 30 days #30 tabs 12/28/24 tablet,extended release 24 hr methocarbamol 750 mg tablet 750 mg PO Q8H PRN muscle spasm #10 08/09/25 tabs Allergies Allergy/AdvReac Type Severity Reaction Status Date / Time No Known Allergies Allergy Verified 08/09/25 19:13 Review of Systems Review of Systems: Yes all other systems are reviewed and are negative Constitutional: Constitutional: Denies fatigue and Denies fever(s) ENT: Denies neck pain Cardiovascular: Cardiovascular: Denies chest pain and Denies dyspnea Respiratory: Respiratory: Denies cough and Denies dyspnea Musculoskeletal: Musculoskeletal: Reports back pain, Denies muscle weakness, Denies neck pain, Denies numbness, Denies radiating pain into limb, Reports stiffness and Denies tingling Neurologic: Denies numbness and Denies tingling Endocrine: Endocrine: Denies fatigue [facility] Past Medical History Attestation statement: The following information was validated with the patient. Medical History Bleeding hemorrhoids Hyperlipidemia CAD (coronary artery disease) Hypertension Diabetes Surgical History Hx of colonoscopy (~2012) S/P cardiac catheterization (~10/2020) Family History Family History Mother Diabetes Hypertension Heart problem Father No problems noted. Social History Social History Alcohol intake: current Alcohol intake frequency: holidays/special occasions only Alcohol type: beer Patient Tobacco Use Status: Former Tobacco user Tobacco use type: Cigarette Years Smoked: 4 Smoked in Last 30 Days: No Use of substances other than those prescribed or required for medical reasons: No Advance Directives: No Advance Directives Information Provided: No Physical Exam ED Vital Signs: Vital Signs - 24 hr 08/09/25 19:05 08/09/25 20:39 08/09/25 22:37 Temperature 97.6 F 97.6 F Pulse Rate 82 69 74 Respiratory Rate 18 15 14 Blood Pressure 132/77 152/79 H 127/75 Pulse Oximetry 98 98 98 Oxygen Delivery Method Room Air Room Air Room Air 08/09/25 23:25 Temperature 97.6 F Pulse Rate 74 Respiratory Rate 14 Blood Pressure 127/75 Pulse Oximetry 98 Oxygen Delivery Method Room Air BMI result Body Mass Index 27.0 Const Other: Alert well-appearing Orientation/consciousness: patient oriented x3 Resp Effort & Inspection: normal respiratory effort Cardio Other: Radial pulses +2 bilaterally Back/Spine/Pelvis Other: Palpable pain over upper to midthoracic spine no step-off no deformity Skin Other: Warm dry no rash Neuro General: patient oriented x3, gait normal, no focal motor deficits and CN's II-XI intact bilaterally Extrem Other: Strength 5/5 bilateral upper extremities with resistance Psych Other: Cooperative Course Course Course Narrative: RME: 69 yold male presents to the ED for SOB, and upper back pain. Labs, xray, and ekg ordered. Vital signs are stable. Medications Administered Discontinued Medications Generic Name Dose Route Start Last Admin Trade Name Nomi PRN Reason Stop Dose Admin Methocarbamol 750 mg 08/09/25 21:31 08/09/25 21:48 Methocarbamol 750 Mg Tablet PO 08/09/25 21:32 750 mg ONCE ONE Administration Medical Decision Making Medical Decision Making [facility] Narrative: 69-year-old male with a history of hypertension, hyperlipidemia, diabetes, known coronary artery disease, prior NSTEMI, prior PCI, who presents with acute mid to upper back pain. Pain worse with movement. Denies new activity, heavy lifting or trauma that could have precipitated his symptoms. Patient also states he has been having muscle cramps in his calves. Denies chest pain, shortness of breath, cough cold symptoms, weakness of upper extremity or paresthesia. Problem: Age, known coronary artery disease History: Per patient I have considered the following differential diagnoses: Musculoskeletal strain, compression fracture, dissection, ACS, muscle cramps, electrolyte abnormality, dehydration Plan: ACS was considered, the patient has known coronary artery disease, however his presentation is not consistent with ACS. Screening labs including cardiac enzymes EKG and chest x-ray were obtained. The patient is having musculoskeletal pain, it is reproducible with movement and palpation, imaging of the thoracic spine obtained, he has arthritis, no compression fractures. He use Tylenol today with good relief of symptoms, giving methocarbamol. I did considered dissection, however he is neurovascularly intact, equal radial pulses, no widened mediastinum on chest x-ray, he is also not overtly hypertensive. In regard to his muscle cramps, sounds as if he does not drink enough water, he has no electrolyte abnormalities including his magnesium. I have independently reviewed the following tests: Labs: No leukocytosis, not anemic, no electrolyte abnormality, troponin x2 flat EKG: Normal sinus rhythm, rate of 74, no ischemic changes no ectopy QTC 419 Chest x-ray: Findings: No consolidation or effusion. Heart size is normal. No acute fracture. IMPRESSION: 1. No acute findings. X-ray thoracic spine:Findings: Normal alignment. No acute fractures or dislocation. Moderate multilevel spondylosis with disc space narrowing and anterior bridging bulky osteophytes. IMPRESSION: No acute findings. Moderate multilevel spondylosis. Differential Diagnosis Differential Diagnoses: The differential diagnosis associated with the presentation includes See medical decision-making Admission/Observation Consideration of admission/observation: Escalation of care including admission/observation considered Not applicable Lab Data MDM Lab Attestation statement: I reviewed the patient's lab results. 08/09/25 19:32 08/09/25 19:32 Labs: Lab Results 08/09/25 08/09/25 Range/Units 19:32 21:36 WBC 9.5 (4.8-10.8) X10*3/uL RBC 4.62 (4.60-5.80) X10*6/uL Hgb 14.3 (14.0-18.0) g/dl Hct 42.3 (42.0-52.0) % MCV 91.6 (80.0-98.0) fL MCH 31.0 (27.0-33.0) pg MCHC 33.8 (31.0-36.0) g/dl RDW 14.1 (11.0-16.0) % Plt Count 213 (160-400) X10*3/uL MPV 11.3 (9.4-12.4) fL Immature Gran % (Auto) Cancelled Neut % (Auto) Cancelled Lymph % (Auto) Cancelled [place] % (Auto) Cancelled Eos % (Auto) Cancelled Baso % (Auto) Cancelled Lymph # (Auto) Cancelled [place] # (Auto) Cancelled Eos # (Auto) Cancelled Baso # (Auto) Cancelled Abs Immat Gran (auto) Cancelled Absolute Neuts (auto) Cancelled Absolute Nucleated RBC 0.000 (0.0-0.012) X10*3/uL Nucleated RBC % (auto) 0.0 (0.0-0.2) /100WBC Neutrophils % (Manual) 69 (45-73) % Band Neutrophils % 0 L (3-5) % Lymphocytes % (Manual) 17 L (20-40) % Monocytes % (Manual) 13 H (2-11) % Basophils % (Manual) 1 (0-2) % Abs Neuts (Manual) 6.6 (2.0-8.3) X10*3/uL Lymphocytes # (Manual) 1.6 (1.2-4.9) X10*3/uL Monocytes # (Manual) 1.2 (0.1-1.2) X10*3/uL Basophils # (Manual) 0.1 (0.0-0.2) X10*3/uL Platelet Estimate NORMAL (NORMAL) Plt Morphology Comment NORMAL RBC Morphology NORMAL PT 11.8 (10.9-12.4) SEC INR 1.0 (0.9-1.1) APTT 27.1 (26.7-34.1) SEC Sodium 136 (135-145) mmol/L Potassium 4.5 (3.3-5.1) mmol/L Chloride 104 (96-108) mmol/L Carbon Dioxide 25 (22-29) mmol/L Anion Gap 12 (12-20) BUN 22 H (9-16) mg/dL Creatinine 0.85 (0.5-1.4) mg/dL Estim Creat Clear Calc 88.5 Estimated GFR > 60 Random Glucose 105 (60-115) mg/dL Calcium 9.0 (8.4-10.2) mg/dL Magnesium 2.2 (1.6-2.6) mg/dL Total Bilirubin 0.6 (0.0-1.0) mg/dL AST 46 H (5-37) U/L ALT 35 (0-40) U/L Alkaline Phosphatase 70 (39-117) U/L Total Creatine Kinase 394 H (38-174) U/L Troponin I High Sens 81.8 H 82.3 H (<3.5-35.0) ng/L Total Protein 8.3 H (6.5-8.0) g/dL Albumin 4.6 (3.5-5.0) g/dL Urine Color Yellow Urine Appearance Clear Urine pH 6.0 (5.0-9.0) Ur Specific [place] 1.010 (1.005-1.025) Urine Protein Negative (Neg-Trace) mg/dL Urine Glucose (UA) Negative (Negative) mg/dL Urine Ketones Negative (Negative) mg/dL Urine Blood Negative (Negative) Urine Nitrite Negative (Negative) Ur Leukocyte Esterase Negative (Negative) COVID-19 (KATIA) Negative (Negative) COVID-19 Clin Com See Note Influenza Type A (ROLY) Negative (Negative) Influenza Type B (ROLY) Negative (Negative) Influenza A & B Note See Note Independent Interpretation I performed an independent interpretation of an: EKG Radiology Impression Discussion of test interpretation with radiology: I have reviewed the radiologist's reading. Discharge Plan Discharge Clinical Impression: Osteoarthritis of thoracic spine, Cramp in muscle Patient Disposition: Home, Self-Care Instructions: Osteoarthritis (ED), Leg Cramps (ED), Muscle Cramp (ED) Additional Instructions: All of your screening labs were normal. The x-ray of your back revealed that you have arthritis. See home care instructions. In regard to your leg cramps, make sure to maintain proper hydration throughout the day, you can drink up to 96 oz of water. Use the methocarbamol, this is a muscle relaxant, as needed for leg cramps and back pain. The muscle relaxant can cause drowsiness, do not drive or operate machinery while taking the medication. You should also use [id number] Tylenol 1000 mg taken every 6 hours. Follow up with your primary care provider as needed. Prescriptions: New methocarbamol 750 mg tablet 750 mg PO Q8H PRN (Reason: muscle spasm) Qty: 10 0RF No Action atorvastatin 40 mg tablet 40 mg PO DAILY Qty: 30 5RF enalapril maleate 20 mg tablet 20 mg PO BID Qty: 60 5RF ezetimibe 10 mg tablet 10 mg PO DAILY Qty: 60 5RF aspirin [Adult Low Dose Aspirin] 81 mg tablet,delayed release (DR/EC) 81 mg PO DAILY 90 Days Qty: 30 5RF metoprolol succinate 50 mg tablet extended release 24 hr 50 mg PO DAILY 30 Days Qty: 30 5RF amlodipine 10 mg tablet 10 mg PO DAILY 30 Days Qty: 30 5RF ibuprofen 600 mg tablet 600 mg PO Q8H PRN (Reason: pain) Qty: 20 0RF metformin 500 mg tablet 500 mg PO Interventions: ED Discharge Assessment Last Done: 08/09/25 23:25 Discharge Date/Time: 08/09/25 23:26 Print Language: Emirati
[2025-08-09 19:39] LABS: Hematocrit 42.3 % (42.0-52.0); Hemoglobin 14.3 g/dl (14.0-18.0); Mean Corpuscular HGB Conc 33.8 g/dl (31.0-36.0); Mean Corpuscular Hemoglobin 31.0 pg (27.0-33.0); Mean Corpuscular Volume 91.6 fL (80.0-98.0); NRBC Abs Auto 0.000 X10*3/uL (0.0-0.012); NRBC Pct Auto 0.0 /100WBC (0.0-0.2); Platelet Count 213 X10*3/uL (160-400); Red Blood Count 4.62 X10*6/uL (4.60-5.80)
[2025-08-09 19:46] LABS: INTERNATIONAL NORM RATIO 1.0 (0.9-1.1); Prothrombin Time 11.8 SEC (10.9-12.4)
[2025-08-09 19:48] LABS: Partial Thromboplastin Time 27.1 SEC (26.7-34.1)
[2025-08-09 19:52] LABS: COVID-19 Test Negative (Negative); IDNOW Serial# 55D5AD1C
[2025-08-09 19:53] LABS: Alanine Aminotransferase 35 U/L (0-40); Albumin Level 4.6 g/dL (3.5-5.0); Alkaline Phosphatase 70 U/L (39-117); Anion Gap 12 (12-20); Aspartate Amino Transferase 46 U/L (5-37); Blood Urea Nitrogen 22 mg/dL (9-16); Calcium 9.0 mg/dL (8.4-10.2); Carbon Dioxide 25 mmol/L (22-29); Chloride 104 mmol/L (96-108); Creatinine Clr Calc Pharmacy 88.5; Estimated Glomerular Filt Rate > 60; IDNOW Serial# 08D9AD1C; Influenza B2 Negative (Negative); Magnesium 2.2 mg/dL (1.6-2.6); Potassium 4.5 mmol/L (3.3-5.1); Sodium 136 mmol/L (135-145); Total Protein 8.3 g/dL (6.5-8.0)
[2025-08-09 19:56] LABS: WBC ABN SCTR FOR CBC 1
[2025-08-09 20:00] LABS: Troponin-I High Sensitivity 81.8 ng/L (<3.5-35.0)
--- OUTSIDE RECORDS SUMMARY | 2025-08-09 20:29 | XMS_ITS | Encounter Summary ---
Author Organization [facility] Address [address] [place] [address] [address] [place] [address] Care Team Providers Care Gold Blower Name Role Phone Josefina Aguillon Primary Care Provider [phone] Kalpana Shelby MD Primary Care Provide r Encounter Details Date Type Department Care Team (Late st Contact Info) Description 03/26/2023 Abstract [facility] MEDICINE [address] [place] [address] Josefina Aguillon FNP [address] [place] [address] Social History Tobacco Use Types Packs/Day Years Used Date Smoking Tobacco: Never Smokeless Tobacco: Never Alcohol Use Standard Drinks/Week Comments Yes 0 (1 standard drink = 0.6 oz pur e alcohol) Depression Answer Date Recorded Patient Health Questionnaire-9 Score 8 11/01/2022 Depression Answer Date Recorded Patient Health Questionnaire-2 Score 1 11/01/2022 Sex and Gender Information Value Date Recorded Sex Assigned at Male 08/12/2022 10:14 AM EDT Legal Sex Male 10:14 AM EDT Gender Identity Male 08/12/2022 10:14 AM EDT Sexual Orientation Straight 08/12/2022 10 :14 AM EDT documented as of this encounter Plan of Treatment Not on file documented as of this encounter Procedures Procedure Name Priority Date/Time Associated Diagnosis Comments COLONOSCOPY Routine 06/17/2013 2:17 PM EDT documented in this encounter Results * Hm Colonoscopy (06/17/2013 2:17 PM EDT) Colonoscopy Normal Normal Narrative Cookie Lubin - 06/17/2013 2:17 PM EDT Recommended 10 year follow up ([facility]) us Historical Provider HEALTH MAINTENANCE Edited Result - Final documented in this encounter Visit Diagnoses Not on filedocumented in this encounter Additional Health Concerns Assessment Noted Time PHQ-9 Depression Total Score: 8 11/01/19 23 10:25 AM EST documented as of this encounter Care Teams Gold Blower Relationship Specialty Start Date End Date Josefina Aguillon FNP [address], [place] [id number] PCP - General Family Medicine 09/03/22 07/30/23 Kalpana Shelby MD [address] [place], [place] [phone] PCP - General Internal Medicine 07/31/23 documented as of this encounter
--- OUTSIDE RECORDS SUMMARY | 2025-08-09 20:29 | XMS_ITS | Clinical Summary ---
Author Organization [employer] Address [address] [facility] [facility] [address] [place] [address] Care Team Providers Care Swat Team Member Name Role Phone Kalpana Shelby MD Primary Care Provide r Allergies No known active allergies Medications Aspirin Low Dose 81 MG EC tablet Take 81 mg by mouth in the morning. 2 Active ezetimibe (Zetia) 10 MG tablet TAKE 1 TABLET BY MOUTH ONCE DAILY 3 Active gabapentin (Neurontin) 100 MG capsule TAKE 1 CAPSULE POR V A ORAL OMERO VECES AL D A 3 Active ibuprofen 600 MG tablet TOME MICHI TABLETA POR V A ORAL CADA SEIS HORAS NEEDED FOR PAIN 2 Active acetaminophen (Tylenol 8 Hour) 650 MG ER tabletIndication s:Bilateral shoulder pain, unspecified chronicity Take 1 tablet (650 mg) by mouth every 8 (eight) hours if needed for mild pain. Do not crush, chew, or split. 90 tablet 3 Active TRUEplus Lancets 33G miscIndications: Type 2 diabetes mellitus without complication, unspecified whether fci insulin use Test blood sugar once daily as directed 100 each 3 3 Active glucose blood (OneTouch Verio) test stripIndications :Type 2 diabetes mellitus without complication, unspecified whether fci insulin use USE DIRECTED TO TEST BLOOD SUGAR ONCE DAILY 100 each 11 3 Active OneTouch Delica Lancets 33G misc 1 each 2 times daily. TEST BLOOD SUGAR ONCE DAILY 100 each 11 3 Active Blood Glucose Monitoring Suppl (OneTouch Verio) w/Device kit 1 each 2 times daily. TEST BLOOD SUGAR ONCE DAILY 1 kit 3 Active amLODIPine (Norvasc) 10 MG tablet 4 Active metoprolol succinate XL (Toprol-XL) 25 MG 24 hr tablet 4 Active atorvastatin (Lipitor) 40 MG tablet 4 Active metFORMIN XR (Glucophage-XR) 500 MG 24 hr tabletIndication s:Type 2 diabetes mellitus without complication, unspecified whether long term care pharmacist insulin use Take 1 tablet (500 mg) by mouth with evening meal. Do not crush, chew, or split.TAKE 1 TABLET BY MOUTH EVERY EVENING WITH DINNER DO NOT BREAK, CRUSH, DISSOLVE OR CHEW 30 tablet 3 5 Active enalapril (Vasotec) 20 MG tablet Take 1 tablet (20 mg) by mouth Once per day. TAKE 1 TABLET BY MOUTH ONCE DAILY 90 tablet 3 5 05/19/20 26 Active sildenafil (Viagra) 50 MG tabletIndication s:Erectile dysfunction, unspecified erectile dysfunction type TAKE 1 TABLET 1 HOUR BEFORE SEXUAL RELATIONS ONCE DAILY NEEDED. 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 Initial goal of 30 min walk 3-5x/week. Increase as tolerated. - low-sodium diet (goal: <2g/day) and heart healthy diet such as DASH to reduce BP and prevent ASCVD. - Home BP monitoring 1-2 x day with goal of <140/90. - Seek immediate medical attention for chest pain, palpitations, SOB, syncope, or sudden changes in mental status. - Do not change or discontinue current prescriptions without first consulting health care provider Assessment & Plan (07/30/2023 11:18 AM EDT): - Aerobic exercise to reduce BP. Initial goal of 30 min walk 3-5x/week. Increase as tolerated. - low-sodium diet (goal: <2g/day) and heart healthy diet such as DASH to reduce BP and prevent ASCVD. - Home BP monitoring 1-2 x day with goal of <140/90. - Seek immediate medical attention for chest pain, palpitations, SOB, syncope, or sudden changes in mental status. - Do not change or discontinue current prescriptions without first consulting health care provider Chronic hepatitis C ([facility]/HCC) 04/30/2012 Assessment & Plan (11/01/2022 10:42 AM EST): treated Depressive disorder 04/30/2012 Diabetes mellitus type 2, uncomplicated 04/30/20 12 Assessment & Plan (11/14/2023 1:29 PM EST): - Lab Results Component Value Date HGBA1C 5.5 09/26/2023 HGBA1C 6.1 (A) 11/01/2022 HGBA1C 5.5 01/01/2021 - Lab Results Component Value Date MICROALBUR 5.3 04/12/2022 CREATININE 0.84 09/26/2023 - Diabetic eye exam:referral today - Diabetic foot exam:pending - Continue lifestyle modifications - Continue current medications Assessment & Plan (07/30/2023 11:19 AM EDT): Lab Results Component Value Date HGBA1C 6.1 (A) 11/01/2022 HGBA1C 5.5 01/01/2021 - Lab Results Component Value Date MICROALBUR 5.3 04/12/2022 CREATININE 0.86 10/17/2020 - Continue lifestyle modifications - Continue current medications Hyperlipidemia 04/30/2012 Microalbuminuria 04/30/2012 Encounters Date Type Department Care Team Description 08/09/2025 Orders Only [facility] External Provider, [facility] 07/08/2025 Refill [facility] MEDICINE [address] [place] [phone] Kalpana Shelby MD Erectile dysfunction, unspecified erectile dysfunction type 07/06/2025 Patient Outreach [facility] MEDICINE [address] [place] [address] Kalpana Shelby MD Pre-visit Planning ((Unable to reach for PVP screening, LVM) to be completed in office ) 05/19/2025 Refill [facility] MED & PEDS [address] [place], [place] [phone] Josefina Aguillon FNP 05/19/2025 Refill [facility] MEDICINE [address], [place] [phone] Kalpana Shelby MD Erectile dysfunction, unspecified erectile dysfunction type 05/10/2025 Telephone [facility] MEDICINE [address], [place] [phone] Kalpana Shelby MD Appointment Request from Last 3 Months Immunizations Immunization Administration Dates Next Due Hep A, ped/adol, 2 dose 07/29/2007,09/19/2006 Hep B, Adolescent or Pediatric 07/29/2007,2006,09/19/2006 Influenza Injectable Quadriv alant Preservative Free IIV4 MDCK 09/09/2017 Influenza injectable quadriv alent IIV4 with preservative 07/17/2016 Influenza injectable quadriv alent preservative free 08/26/2019,07/09/2018,06/15/2015 Influenza, High Dose Seasona l, Preservative Free 09/08/2017 Influenza, IIV3, injectable 10/19/2020, 7 Influenza, Split (incl. kathrin fied surface antigen) 06/28/2013 Meningococcal MCV4P ACYW-135 03/23/2019 Pneumococcal Conjugate PCV 13 02/23/2019 Pneumococcal Polysaccharide PPSV23 12/02/2019, Tdap 07/14/2018,04/12/2013 Zoster, Recombinant 12/20/2019,08/26/2019 Family History Medical History Relation Name Comments Diabetes Mother Relation Name Status Comments Mother Social History Tobacco Use Types Packs/Day Years Used Date Smoking Tobacco: Never Passive Smoke Exposure: Never Smokeless Tobacco: Never Tobacco Cessation:Counseling Given: Not Answered Alcohol Use Standard Drinks/Week Comments Yes 0 (1 standard drink = 0.6 oz pur e alcohol) Alcohol Answer Date Recorded Frequency of Alcohol Consumption Not on file 11/14/2023 Average Number of Drinks Not on file 024 Frequency of Binge Drinking Not on file 11/2023 Score 0 11/14/2023 Depression Answer Date Recorded Patient Health Questionnaire-9 Score 0 11/14/2023 Patient Health Questionnaire-9 Score 0 11/14/2023 Last PHQ-9: Questionnaire Data Not on file 0 11/14/2023 Housing Stability Answer Date Recorded What is your housing situation today? I have jose rosenbaum 11/14/[address] you li ve. Do you have problems with any of the following? None of the above 11/14/2023 Food Insecurity Answer Date Recorded Within the past 12 months, y ou worried that your food would run out before you got money to buy more: Never True 11/14/2023 Within the past 12 months,th e food you bought just didn't last and you didn't have enough money to get more: Never True 11/2023 Transportation Answer Date Recorded In the past 12 months, has l ack of transportation kept you from medical appts, meetings, work or from getting things needed for daily living? No 11/14/2023 Utilities Answer Date Recorded In the past 12 months, has t he electric, gas, oil or water company threatened to shut off services in your home? No 11/14/2023 Depression Answer Date Recorded Patient Health Questionnaire-2 Score 0 11/14/2023 Sex and Gender Information Value Date Recorded Sex Assigned at Male 08/12/2022 10:14 AM EDT Legal Sex Male 10:14 AM EDT Gender Identity Male 08/12/2022 10:14 AM EDT Sexual Orientation Straight 08/12/2022 10 :14 AM EDT Last Filed Vital Signs Vital Sign Reading Time Taken Comments Blood Pressure 130/81 11/14/2023 10:45 AM EST Pulse 59 11/14/2023 10:45 AM EST Temperature 35.9 C (96.7 F) 11/14/2023 10:45 AM EST Respiratory Rate 20 11/14/2023 10:45 AM EST Oxygen Saturation 98% 11/14/2023 10:45 AM EST Inhaled Oxygen Concentration - - Weight 88.5 kg (195 lb 3.2 oz) 11/14/2023 10:45 AM EST Height 180.3 cm (5' 11 ) 11/14/2023 10:45 AM EST Body Mass Index 27.22 11/14/2023 10:45 AM EST Plan of Treatment Health Maintenance Due Date Last Done Comments CT Colonography 1955 FIT DNA/Cologuard 1955 FIT 1955 FOBT 1955 Sigmoidoscopy 1955 HIB Vaccines (1 of 1 - Risk 1-dose series) 02/27/1958 Diabetes: Foot Exam 1966 Meningococcal B Vaccine (1 of 5 - Increased Risk) 1966 Alcohol/Substance Use Screening 1968 Hepatitis A Vaccines (1 of 2 - Risk 2-dose series) 1975 07/29/2007, 09/19/2006 Hepatitis B Vaccines (1 of 3 - Risk 3-dose series) 2016 07/29/2007, 11/13/2006, 09/19/2006 RSV Patients and Patients Aged 60 years or older (1 - Risk 60-74 years 1-dose series) 2016 Meningococcal Vaccine (2 - Risk 2-dose series) 05/18/2019 03/23/2019 Colonoscopy 06/17/2023 06/17/2013 Colorectal Cancer Screening 06/17/2023 Diabetes: Hemoglobin A1C 03/27/2024 023, 11/01/2022, 01/01/2021, Additional history exists Depression Screening 11/14/2024 11/14/2023, 11/14/19 24 Diabetes: Urine Protein Screening 11/14/2024 11/14/2023, 04/12/2022, 01/01/2021 SDOH Screening 11/14/2024 11/14/2023 Pneumococcal Vaccine: 50+ Years (4 of 4 - PCV20 or PCV21) 12/02/2024 12/02/2019, 02/23/2019, 10/14/1989 Lipid Panel 03/11/2025 03/11/2024, 09/12, 08/16/2022, Additional history exists Tobacco Screening 04/06/2025 04/06/2024 COVID-19 Vaccine ( season) 2025 Influenza Vaccine (#1) 2025 , 08/26/2019, 07/09/2018, Additional history exists Eye Exam 03/11/2026 03/11/2024, 02/12, 03/11/2024, Additional history exists DTaP/Tdap/Td Vaccines (3 - Td or Tdap) 07/14/2028 07/14/2018, 04/12/2013 Zoster Vaccines Completed 12/20/2019, 08/26/2019 HPV Vaccines Aged Out No longer eligi ble based on patient's age to complete this topic IPV Vaccines Aged Out No longer eligi ble based on patient's age to complete this topic RSV under 20 months Aged Out No longe r eligible based on patient's age to complete this topic Rotavirus Vaccines Aged Out No longer eligible based on patient's age to complete this topic Procedures Procedure Name Priority Date/Time Associated Diagnosis Comments XR THORACIC SPINE 3 VIEWS Routine 08/09/2025 8:25 PM EDT XR CHEST 1 VIEW Routine 08/09/2025 8:24 PM EDT HIGH SENSITIVITY TROPONIN I Routine 08/09/2025 7:32 PM EDT Coronary artery disease involving [place] coronary artery of [place] heart, unspecified whether angina present COMPLETE BLOOD COUNT MAN DIF Routine 08/09/2025 7:32 PM EDT Coronary artery disease involving [place] coronary artery of [place] heart, unspecified whether angina present CBC WITH AUTO DIFFERENTIAL Routine 08/09/2025 7:32 PM EDT Coronary artery disease involving [place] coronary artery of [place] heart, unspecified whether angina present CREATINE KINASE, TOTAL Routine 08/09/2025 7:32 PM EDT Coronary artery disease involving [place] coronary artery of [place] heart, unspecified whether angina present MAGNESIUM Routine 08/09/2025 7:32 PM EDT Coronary artery disease involving [place] coronary artery of [place] heart, unspecified whether angina present COMPREHENSIVE METABOLIC PANEL Routine 08/09/2025 7:32 PM EDT Coronary artery disease involving [place] coronary artery of [place] heart, unspecified whether angina present COVID-19 ID NOW (BRUNO) Routine 08/09/2025 7:32 PM EDT Coronary artery disease involving [place] coronary artery of [place] heart, unspecified whether angina present APTT Routine 08/09/2025 7:32 PM EDT Coronary artery disease involving [place] coronary artery of [place] heart, unspecified whether angina present PROTHROMBIN TIME-INR Routine 08/09/2025 7:32 PM EDT Coronary artery disease involving [place] coronary artery of [place] heart, unspecified whether angina present INFLUENZA A B2 ID NOW (BRUNO) Routine 08/09/2025 7:32 PM EDT Coronary artery disease involving [place] coronary artery of [place] heart, unspecified whether angina present LIPID PANEL, STANDARD Routine 03/11/2024 2:51 PM EDT ALBUMIN, RANDOM URINE W/CREATININE Routine 11/14/2023 12:09 PM EST Mixed hyperlipidemia HEMOGLOBIN A1C Routine 09/26/2023 9:31 AM EST Type 2 diabetes mellitus without complication, without long-term current use of insulin ([facility]) HM COLONOSCOPY Routine 06/17/2013 2:17 PM EDT from Last 3 Months or Most Recently Relevant to Health Maintenance Results * XR Thoracic Spine 3 Views (08/09/2025 8:25 PM EDT) Anatomical Region Laterality Modality Spine, T-spine Radiographic Glendy ging 08/09/2025 8:25 PM EDT Narrative 08/09/2025 8:26 PM EDT [address] [address] XRay Report Signed Patient: Jorge A Iqbal MR# : [id number] : 1955 Acct:[id number] Age/Sex: 69 / M ADM Date: 08/09/25 Loc: HO.ED Attending Dr: Ordering Physician: Jose Krause Date of Service: 08/09/25 Procedure(s): XR thoracic spine 3V Accession Number(s): [id number] cc: Jose Krause; Kalpana Shelby MD Reason for Exam: back pain CLINICAL HISTORY: back pain 4 views thoracic spine Comparison: None provided Findings: Normal alignment. No acute fractures or dislocation. Moderate multilevel spondylosis with disc space narrowing and anterior bridging bulky osteophytes. IMPRESSION: No acute findings. Moderate multilevel spondylosis. This document has been electronically signed by: Jo Buenrostro MD on 08/09/2025 20:25:13 Dictated By: Jo Buenrostro MD Signed By: <Electronically signed by Jo Buenrostro MD in OV> 08/09/252025 DD/ 24 TD/TT: 08/09/252024 Technology Development Intern: Procedure Note Donotuseinterpreter, Image - 08/09/2025 [place] [address] XRay Report Signed Patient: Boubacar Iqbal# : [id number] : [id number]:[id number] Age/Sex: 69 / MADM Date: 08/09/25 Loc: HO.ED Attending Dr: Ordering Physician: Jose Krause Date of Service: 08/09/25 Procedure(s): XR thoracic spine 3V Accession Number(s): [id number] cc: Jose Krause; Kalpana Shelby MD Reason for Exam: back pain CLINICAL HISTORY: back pain 4 views thoracic spine Comparison: None provided Findings: Normal alignment. No acute fractures or dislocation. Moderate multilevel spondylosis with disc space narrowing and anterior bridging bulky osteophytes. IMPRESSION: No acute findings. Moderate multilevel spondylosis. This document has been electronically signed by: Jo Buenrostro MD on 08/09/2025 20:25:13 Dictated By: Jo Buenrostro MD Signed By: <Electronically signed by Jo Buenrostro MD in OV> 08/09/252025 DD/ 24 TD/TT: 08/09/252024 Technology Development Intern: [facility] External Provider IMG XR PROCEDURES Final Result * XR Chest 1 View (08/09/2025 8:24 PM EDT) Anatomical Region Laterality Modality Chest Radiographic Glendy ging 08/09/2025 8:24 PM EDT Narrative 08/09/2025 8:25 PM EDT [address] [address] XRay Report Signed Patient: Jorge A Iqbal MR# : [id number] : 1955 Acct:[id number] Age/Sex: 69 / M ADM Date: 08/09/25 Loc: .ED Attending Dr: Ordering Physician: Jose Krause Date of Service: 08/09/25 Procedure(s): XR chest 1V Accession Number(s): [id number] cc: Jose Krause; Kalpana Shelby MD Reason for Exam: pneumonia? SOB CLINICAL HISTORY: pneumonia? SOB 1 view chest x-ray Comparison: None provided Findings: No consolidation or effusion. Heart size is normal. No acute fracture. IMPRESSION: 1. No acute findings. This document has been electronically signed by: Jo Buenrostro MD on 08/09/2025 20:24:40 Dictated By: oJ Buenrostro MD Signed By: <Electronically signed by Jo Buenrostro MD in OV> 08/09/252024 DD/ 23 TD/TT: 08/09/252023 Technology Development Intern: Procedure Note Donotuseinterpreter, Image - 08/09/[address] [address] XRay Report Signed Patient: Kenzie IqbalR# : [id number] : [id number]:[id number] Age/Sex: 69 / MADM Date: 08/09/25 Loc: HO.ED Attending Dr: Ordering Physician: Jose Krause Date of Service: 08/09/25 Procedure(s): XR chest 1V Accession Number(s): [id number] cc: Jose Krause; Kalpana Shelby MD Reason for Exam: pneumonia? SOB CLINICAL HISTORY: pneumonia? SOB 1 view chest x-ray Comparison: None provided Findings: No consolidation or effusion. Heart size is normal. No acute fracture. IMPRESSION: 1. No acute findings. This document has been electronically signed by: Jo Buenrostro MD on 08/09/2025 20:24:40 Dictated By: Jo Buenrostro MD Signed By: <Electronically signed by Jo Buenrostro MD in OV> 08/09/252024 DD/ 23 TD/TT: 08/09/252023 Technology Development Intern: [facility] External Provider IMG XR PROCEDURES Final Result * Influenza A B2 ID NOW (Bruno) (08/09/2025 7:32 PM EDT) IDNOW SERIAL# [id number] [facility] Influenza A Negative Negative [facility] Influenza B2 Negative Negative [facility] Influenza A B2 Note See Note [facility] Comment:The Bruno ID NOW In fluenza A B2 test is used for thequalitative detection of influenza A and B from patientswith signs and symptoms of respiratory infection.Negative results do not preclude influenza virus infectionand should not be used as the sole basis for diagnosis,treatment or other patient management decisions.There is a risk of false negative results due to thepresence of variants in the viral targets of the assay, lowlevels of virus in the specimen and co- infection withRespiratory Syncytial Virus. 08/09/2025 7:32 PM EDT 08/09/2025 7:36 PM EDT Generic External Data Provider LAB MICROBIOLOGY - GENERAL ORDERABLES Final Result [facility] [address] [place] [phone] * COVID-19 ID NOW (BRUNO) (08/09/2025 7:32 PM EDT) Pathologist [facility] IDNOW SERIAL# [id number] [facility] COVID-19 TEST Negative Negative [facility] COVID-19 NOTE See Note [facility] Comment: Results are for the identification of SARS-CoV2 RNA. TheSARS-CoV2 RNA is generally detectable in respiratory samplesduring the acute phase of infection. Positive results areindicative of the presence of SARS-CoV-2 RNA; clinicalcorrelation with patient history and other diagnosticinformation is necessary to determine patient infectionstatus. Positive results do not rule out bacterial infectionor co- infection with other viruses.Testing facilities within the [facility] and [facility] are required to report all positive results tothe appropriate public health authorities.Negative results should be treated as presumptive and, ifinconsistent with clinical signs and symptoms or necessaryfor patient management, should be tested with differentauthorized or cleared molecular tests. Negative results donot preclude SARS-CoV2 RNA infection and should not be usedas the sole basis for patient management decisions. Negativeresults should be considered in the context of a patient'srecent exposures, history and the presence of clinical signsand symptoms consistent with COVID-19.This test has been authorized by the FDA under an EmergencyUse Authorization (EUA) for use by authorized laboratories.Testing performed on the Bruno ID NOW utilizing NAAT. 08/09/2025 7:32 PM EDT 08/09/2025 7:36 PM EDT us Generic External Data Provider LAB MOLECULAR ILEANA GNOSTICS ORDERABLES Final Result [facility] [address] [place] [phone] * (ABNORMAL) High Sensitivity Troponin I (08/09/2025 7:32 PM EDT) [facility] TROPONIN I HIGH SENSITIVITY 81.8(H) <3.5 - 35.0 ng/L [facility] Comment:The Bruno high sens itivity Troponin-I results should beused in conjunction with other diagnostic information suchas ECG, clinical observations and information, and patientsymptoms to aid in the diagnosis of AK. 08/09/2025 7:32 PM EDT 08/09/2025 7:36 PM EDT Generic External Data Provider LAB BLOOD ORDERAB LES Final Result Performing Organization Address City/[facility] [address]/[facility] Co de Phone Number [facility] [address] [place] [phone] * Partial Thromboplastin Time, Activated (APTT) (08/09/2025 7:32 PM EDT) Partial Thromboplastin Time 27.1 26.7 - 34.1 SEC [facility] 08/09/2025 7:32 PM EDT 08/09/2025 7:36 PM EDT Generic External Data Provider LAB BLOOD ORDERAB LES Final Result Performing Organization Address [facility] Co de Phone Number [facility] [address] [place] [phone] * Prothrombin Time-INR (08/09/2025 7:32 PM EDT) Prothrombin Time 11.8 10.9 - 12.4 SEC [facility] INTERNATIONAL NORM RATIO 1.0 0.9 - 1.1 [facility] Comment:INTERNATIONAL NORMAL IZED RATIO (INR) REFERENCE RANGES Reference RangeFor patients not on anticoagulant therapy: 0.9 - 1.1INR ranges for oral anticoagulanttherapy:For prevention and treatment of venous thrombosis and pulmonary embolism: 2.0 - 3.0For acute myocardial infarction with aspirin therapy: 2.0 - 3.0For acute myocardial infarction without aspirin therapy: 3.0 - 4.0For patients with mechanical prosthetic heart valves: 2.5 - 3.5 08/09/2025 7:32 PM EDT 08/09/2025 7:36 PM EDT us Generic External Data Provider LAB BLOOD ORDERAB LES Final Result Performing Organization Address [facility] [address]/[facility] de Phone Number [facility] [address] [place] [phone] * Magnesium (08/09/2025 7:32 PM EDT) Pathologist [facility] Magnesium 2.2 1.6 - 2.6 mg/dL [facility] 08/09/2025 7:32 PM EDT 08/09/2025 7:36 PM EDT us Generic External Data Provider LAB BLOOD ORDERAB LES Final Result Performing Organization Address [facility] Phone Number [facility] [address] [place] [phone] * (ABNORMAL) Creatine Kinase, Total (08/09/2025 7:32 PM EDT) [facility] Creatine Kinase Total 394(H) 38 - 174 U/L [facility] 08/09/2025 7:32 PM EDT 08/09/2025 7:36 PM EDT Generic External Data Provider LAB BLOOD ORDERAB LES Final Result Performing Organization Address [facility] de Phone Number [facility] [address] [place] [phone] * (ABNORMAL) Comprehensive Metabolic Panel (08/09/2025 7:32 PM EDT) [facility] Sodium 136 135 - 145 mmol/L [facility] Potassium 4.5 3.3 - 5.1 mmol/L [facility] Chloride 104 96 - 108 mmol/L [facility] Carbon Dioxide 25 22 - 29 mmol/L [facility] Anion Gap 12 12 - 20 [facility] Urea Nitrogen (BUN) 22(H) 9 - 16 mg/dL [facility] Creatinine, Serum 0.85 0.5 - 1.4 mg/dL [facility] Creatinine Clr Calc [facility] Comment:eGFR (calculated fro m the MDRD study equation) and eCrCl(calculated from the Cockcroft-Gault equation) are based ondifferent parameters and may not yield comparable results.If eCrCl result is absurd, please check patient'sheight/weight. Estimated Glomerular Filt Rate >60 [facility] Comment:Chronic Kidney Disea se: Estimated GFR < 60 mL/min/1.27a7Ijhyic Kidney Disease: Estimated GFR < 15 mL/min/1.73m2 Glucose 105 60 - 115 mg/dL [facility] Calcium 9.0 8.4 - 10.2 mg/dL [facility] Bilirubin, Total 0.6 0.0 - 1.0 mg/dL [facility] Aspartate Amino Transferase 46(H) 5 - 37 U/L [facility] Alanine Aminotransferase 35 0 - 40 U/L [facility] Total Protein 8.3(H) 6.5 - 8.0 g/dL [facility] Albumin Level 4.6 3.5 - 5.0 g/dL [facility] Alkaline Phosphatase 70 39 - 117 U/L [facility] 08/09/2025 7:32 PM EDT 08/09/2025 7:36 PM EDT us Generic External Data Provider LAB BLOOD ORDERAB LES Final Result [facility] [address] [place] [phone] * Lipid Panel, Standard (03/11/2024 2:51 PM EDT) Triglycerides 80 <150 mg/dL [facility] Comment:Desirable Triglyceri de: less than 150 mg/dLBorderline High Triglyceride 150-199 mg/dLHigh Triglyceride: 200-499 mg/dLVery High Triglyceride: greater than or equal to 5OO mg/dL Cholesterol 136 <200 mg/dL [facility] Comment:Desirable Cholestero l: less than 200 mg/dLBorderline High Cholesterol: 200-239 mg/dLHigh Cholesterol: greater than 239 mg/dL LDL Cholesterol Calculated 68 <100 mg/dL [facility] Comment:Desirable LDL: less than 100 mg/dLNear Optimal/Above Optimal LDL: 110- 129 mg/dLBorderline High LDL: 130-159 mg/dLHigh LDL: 160-189 mg/dLVery High LDL: greater than or equal to 190 mg/dL HDL Cholesterol 52 >40 mg/dL [facility] Comment:Desirable HDL: great er than 40 mg/dL Note: This HDL assay may give artificially low results in patients with liver disease. 03/11/2024 2:51 PM EDT 03/11/2024 2:51 PM EDT us Generic External Data Provider LAB BLOOD ORDERAB LES Final Result Performing Organization Address [facility] [address]/[facility] Co de Phone Number [facility] [address] [place] [phone] * Albumin, Random Urine W/Creatinine (11/14/2023 12:09 PM EST) Creatinine, Urine 58.27 mg/dL [facility] Microalbumin Urine 10.0 mg/L [facility] Microalbum Creatinine Ratio Ur 17.1 <30 ug/mg cr [facility] Comment:Albumin/Creatinine R atio Reference Ranges: Normal: < 30 ug/mg creatinine Microalbuminuria: 30 - 300 ug/mg creatinineClinical Albuminuria: > 300 ug/mg creatinine 11/14/2023 12:0 9 PM EST 11/14/2023 1:19 PM EST us Kalpana Scanlon MD LAB URINE ORDERABLES Final Result Performing Organization Address City/[facility] [address]/ZIP Co de Phone Number [facility] [address] [place] [phone] * Hemoglobin A1c (09/26/2023 9:31 AM EST) Hemoglobin A1c 5.5 <6.0 % [facility] Comment:Hemoglobin A1C Refer ence Range Adults: 4.8 - 6.0 % Non diabetic: < 6.0 % Goal: < 7.0 %Additional Action Suggested: > 8.0 %Note: Hemoglobin A1c results are invalid for patients with abnormal amounts of HbF. Blood transfusions may impact the HbA1c concentration in the patient sample. Estimated Average Glucose 111 mg/dL [facility] Comment:eAG = Estimated ave rage glucose which is %A1C expressed asaverage glucose, using the formula of the P2W-YpfiwhzGosznwm Glucose study (ADAG), Diabetes Care, Vol.31,#8,Aug. 2007 Blood Venous blood specimen / Unknown 09/26/2023 9:31 AM EST 09/26/2023 11:13 AM EST us Kalpana Scanlon MD LAB BLOOD ORDERABLES Final Result Performing Organization Address City/State/[facility] Co de Phone Number [facility] [address] [place] [phone] * Hm Colonoscopy (06/17/2013 2:17 PM EDT) Colonoscopy Normal Normal Narrative Cookie Lubin - 06/17/2013 2:17 PM EDT Recommended 10 year follow up ([facility]) us Historical Provider HEALTH MAINTENANCE Edited Result - Final from Last 3 Months or Most Recently Relevant to Health Maintenance Insurance [address] [place], [place] [id number] ONE CARE < 65 Care Teams Swat Team Member Relationship Specialty Start Date End Date Kalpana Shelby MD [address] [place] [phone] PCP - General Internal Medicine 07/31/23
--- OUTSIDE RECORDS SUMMARY | 2025-08-09 20:29 | XMS_ITS | Encounter Summary ---
Author Organization [employer] Address [address] [place] [address] Care Team Providers Care Flight Data Technician Name Role Phone Kalpana Shelby MD Primary Care Provide r Reason for Visit * Reason Onset Date Comments Med Refill 09/30/2024 Encounter Details Date Type Department Care Team ([facility] st Contact Info) Description 09/30/2024 Telephone [facility] [address] [place] [address] Kalpana Shelby MD [address] [place] [phone] Med Refill Social History Tobacco Use Types Packs/Day Years Used Date Smoking Tobacco: Never Passive Smoke Exposure: Never Smokeless Tobacco: Never Alcohol Use Standard Drinks/Week Comments Yes 0 (1 standard drink = 0.6 oz pur e alcohol) Alcohol Answer Date Recorded Frequency of Alcohol Consumption Not on file 11/14/2023 Average Number of Drinks Not on file Frequency of Binge Drinking Not on file [...] AM EDT documented as of this encounter Miscellaneous Notes * Telephone Encounter - Marychuy Ferrell LPN - 09/30/2024 11:31 AM EST Amlodipine isn't prescribed by PCP other medication pended. * Telephone Encounter - Arthur Peralta - 09/30/2024 11:22 AM EST TC from pt requesting medication refill. Medications needing refill : amLODIPine (Norvasc) 10 MG tablet sildenafil (Viagra) 50 MG tablet To be sent to: [facility] - [place], [place] - [address] [facility] documented in this encounter Plan of Treatment Not on file documented as of this encounter Visit Diagnoses Not on filedocumented in this encounter Additional Health Concerns Assessment Noted Time PHQ-9 Depression Total Score: 0 11/14/19 10:54 AM EST documented as of this encounter Care Teams Flight Data Technician Relationship Specialty Start Date End Date Kalpana Shelby MD [address] [facility] [place] [address] PCP - General Internal Medicine 07/31/23 documented as of this encounter
--- OUTSIDE RECORDS SUMMARY | 2025-08-09 20:29 | XMS_ITS | Encounter Summary ---
Author Organization [employer] Address [address] [place] [address] [address] [place] [address] Care Team Providers Care Administration Internship Name Role Phone Josefina Aguillon Primary Care Provider [phone] Kalpana Shelby MD Primary Care Provide r Encounter Details Date Type Department Care Team (Late st Contact Info) Description 12/18/2022 Orders Only [facility] [address] [place] [phone] Josefina Aguillon FNP [address] [place] [address] Mixed hyperlipidemia (Primary Dx); Type 2 diabetes mellitus without complication, unspecified whether galley boy insulin use ([facility]) Social History Tobacco Use Types Packs/Day Years [...] Orientation Straight 08/12/2022 10 :14 AM EDT COVID-19 Exposure Response Date Recorded In the last 10 days, have yo u been in contact with someone who was confirmed or suspected to have Coronavirus/COVID-19? Unable to assess 12/18/2022 10:10 AM EST documented as of this encounter Plan of Treatment Scheduled Orders Name Type Priority Associated Diagnoses Orde r Schedule Hepatic Function Panel Lab Routine Mixed hyperlipidemia Type 2 diabetes mellitus without complication, unspecified whether galley boy insulin use ([facility]) Expected: 01/18/2023 (Approximate), Expires: 12/19/2023 documented as of this encounter Procedures Procedure Name Priority Date/Time Associated Diagnosis Comments ALBUMIN, RANDOM URINE W/CREATININE Routine 11/14/2023 12:09 PM EST Mixed hyperlipidemia documented in this encounter Results * Albumin, Random Urine W/Creatinine (11/14/2023 12:09 PM EST) Creatinine, Urine 58.27 mg/dL [facility] Microalbumin Urine 10.0 mg/L [facility] Microalbum Creatinine Ratio Ur 17.1 <30 ug/mg cr [facility] Comment:Albumin/Creatinine R atio Reference Ranges: Normal: < 30 ug/mg creatinine Microalbuminuria: 30 - 300 ug/mg creatinineClinical Albuminuria: > 300 ug/mg creatinine 11/14/2023 12:0 9 PM EST 11/14/2023 1:19 PM EST us Kalpana Scanlon MD LAB URINE ORDERABLES Final Result Performing Organization Address City/State/[facility] Co de Phone Number [facility] [address] [place] [phone] documented in this encounter Visit Diagnoses Diagnosis Mixed hyperlipidemia- Primary Type 2 diabetes mellitus without complication, unspecified whether care home insulin use documented in this encounter Additional Health Concerns Assessment Noted Time PHQ-9 Depression Total Score: 8 11/01/19 23 10:25 AM EST documented as of this encounter Care Teams Administration Internship Relationship Specialty Start Date End Date Josefina Aguillon FNP [address] [place] [address] PCP - General Family Medicine 09/03/22 07/30/23 Kalpana Shelby MD [address] [place] [address] PCP - General Internal Medicine 07/31/23 documented as of this encounter
[2025-08-09 20:39] VITALS: BP 152/79; PULSE 69; RESP 15; O2SAT 98
[2025-08-09 20:59] LABS: Basophils Percent Manual 1 % (0-2); Lymphocytes Percent Manual 17 % (20-40); Monocytes Percent Manual 13 % (2-11); Neutrophils Percent Manual 69 % (45-73)
[2025-08-09 21:01] LABS: Band Neutrophils Percent 0 % (3-5); Basophils Abs Manual 0.1 X10*3/uL (0.0-0.2); Lymphocytes Absolute Manual 1.6 X10*3/uL (1.2-4.9); Monocytes Absolute Manual 1.2 X10*3/uL (0.1-1.2); Neutrophils Absolute Manual 6.6 X10*3/uL (2.0-8.3); RBC Morphology NORMAL; White Blood Count 9.5 X10*3/uL (4.8-10.8)
[2025-08-09 21:48] LABS: Appearance Urine Clear; Glucose Urine UA Negative (Negative); PH 6.0 (5.0-9.0); Specific Gravity - Urine 1.010 (1.005-1.025)
[2025-08-09 22:20] LABS: Troponin-I High Sensitivity 82.3 ng/L (<3.5-35.0)
[2025-08-09 22:37] VITALS: BP 127/75; PULSE 74; RESP 14; TEMP 36.4; O2SAT 98
[2025-08-09 23:25] VITALS: BP 127/75; PULSE 74; RESP 14; TEMP 36.4; O2SAT 98
== END 2025-08-09 23:26 | disposition home or self-care (01) ==
PROVIDERS: Physician Assistant; Physician Assistant Medical; Emergency Provider Emergency Medicine; PCP Internal Medicine
DX: M47.814 Spondylosis without myelopathy or radiculopathy, thoracic region (principal); R25.2 Cramp and spasm; R07.9 Chest pain, unspecified; R06.02 Shortness of breath; M54.9 Dorsalgia, unspecified; Z03.818 Encounter for observation for suspected exposure to other biological agents ruled out
CPT/HCPCS: 36415; 71045; 72072; 80053; 81003; 82550; 83735; 84484; 85007; 85027; 85610; 85730; 87502; 87635; 93005; 96361; 96374; 99284; 99285

== ENCOUNTER → 2025-08-09 19:00 | Outpatient (BNV) | payer MEDICARE, MEDICAID, SELFPAY | PROVIDERS: Emergency Provider Emergency Medicine; PCP Internal Medicine; Visit Provider Internal Medicine | DX: R07.9 Chest pain, unspecified (principal) | CPT/HCPCS: 93010 ==

== ENCOUNTER → 2025-08-09 19:08 | Outpatient (BNV) | payer MEDICARE, MEDICAID, SELFPAY | PROVIDERS: PCP Internal Medicine; Visit Provider Student in an Organized Health Care Education/Training Program | DX: M47.816 Spondylosis without myelopathy or radiculopathy, lumbar region (principal); R06.02 Shortness of breath | CPT/HCPCS: 71045; 72072 ==

== ENCOUNTER 2025-08-16 10:01 | Outpatient (REF) | payer MEDICARE, MEDICAID, SELFPAY ==
--- OUTSIDE RECORDS SUMMARY | 2025-08-16 09:00 | XMS_ITS | Encounter Summary ---
Author Organization [employer] Address [address] [facility] [address] [place] [address] Care Team Providers Care Building Manager Name Role Phone Kalpana Shelby MD Primary Care Provide r Reason for Referral * Consultation (Routine) - Pending Review Specialty Diagnoses / Procedures Referred By Remington damon Referred To Contact Gastroenterology Diagnoses Colon cancer screening Kalpana Shelby MD [address] [place] [id number] Phone: tel: fax: Referral ID Status Reason Start Date Expiration Date Visits Requested Visits Authorized [id number] Pending Review Specialty Services Required 08/16/2025 08/16/2026 1 1 * Consultation (Routine) - Pending Review Specialty Diagnoses / Procedures Referred By Remington damon Referred To Contact Podiatry Diagnoses Type 2 diabetes mellitus without complication, without long-term current use of insulin (HCC) Kalpana Shelby MD [address] [place] [address] Phone: tel: fax: Referral ID Status Reason Start Date Expiration Date Visits Requested Visits Authorized [id number] Pending Review Specialty Services Required 08/16/2025 08/16/2026 1 1 * Consultation (Routine) - Pending Review Specialty Diagnoses / Procedures Referred By Remington damon Referred To Contact Cardiology Diagnoses Coronary artery disease involving clark's point coronary artery of clark's point heart, unspecified whether angina present Palpitations Benign hypertension Kalpana Shelby MD [address] [place] [address] Phone: tel: fax: Referral ID Status Reason Start Date Expiration Date Visits Requested Visits Authorized [id number] Pending Review Specialty Services Required 08/16/2025 08/16/2026 1 1 * Consultation (Routine) - Pending Review Specialty Diagnoses / Procedures Referred By Contac t Referred To Contact Urology Diagnoses Nocturia Kalpana Shelby MD [address] [place] [address] Phone: tel: fax: Referral ID Status Reason Start Date Expiration Date Visits Requested Visits Authorized [id number] Pending Review Specialty Services Required 08/16/2025 08/16/2026 1 1 Encounter Details Date Type Department Care Team (Late st Contact Info) Description 08/16/2025 9:00 AM EST Office Visit [facility] MEDICINE [address] [place] [phone] Kalpana Shelby MD [address], [place] [phone] Cramps of left lower extremity (Primary Dx); Type 2 diabetes mellitus without complication, without long-term current use of insulin (HCC); Nocturia; Other intermediate (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; Coronary artery disease involving clark's point coronary artery of clark's point heart, unspecified whether angina present; Chronic hepatitis C without hepatic coma (HCC); Dietary counseling; Exercise counseling; Overweight; Palpitations; Benign hypertension; Colon cancer screening; Encounter for immunization Social History Tobacco Use Types Packs/Day Years Used Date Smoking Tobacco: Never Passive Smoke Exposure: Never Smokeless Tobacco: Never Alcohol Use Standard Drinks/Week Comments Yes 0 (1 standard drink = 0.6 oz pur e alcohol) Depression Answer Date Recorded Patient Health Questionnaire-9 Score 0 08/16/2025 Patient Health Questionnaire-9 Score 0 08/16/2025 Last PHQ-9: Questionnaire Data Not on file 1 10/16/2024 Housing Stability Answer Date Recorded What is your housing situation today? I have jose rosenbaum 08/16/[address] you li ve. Do you have problems with any of the following? None of the above 08/16/2025 Food Insecurity Answer Date Recorded Within the past 12 months, y ou worried that your food would run out before you got money to buy more: Never True 08/16/2025 Within the past 12 months,th e food you bought just didn't last and you didn't have enough money to get more: Never True 01/2025 Transportation Answer Date Recorded In the past 12 months, has l ack of transportation kept you from medical appts, meetings, work or from getting things needed for daily living? No 08/16/2025 Utilities Answer Date Recorded In the past 12 months, has t he electric, gas, oil or water company threatened to shut off services in your home? No 08/16/2025 Depression Answer Date Recorded Patient Health Questionnaire-2 Score 0 08/16/2025 Internet Access Answer Date Recorded Internet Access Q1 Yes 08/16/2025 Internet Access Q2 Not on file 08/16/2025 Sex and Gender Information Value Date Recorded Sex Assigned at Male 08/12/2022 10:14 AM EDT Legal Sex Male 10:14 AM EDT Gender Identity Male 08/12/2022 10:14 AM EDT Sexual Orientation Straight 08/12/2022 10 :14 AM EDT documented as of this encounter Last Filed Vital Signs Vital Sign Reading Time Taken Comments Blood Pressure 122/80 08/16/2025 9:14 AM EST Pulse 65 08/16/2025 9:14 AM EST Temperature 35.9 C (96.6 F) 08/16/2025 9:14 AM EST Respiratory Rate 20 08/16/2025 9:14 AM EST Oxygen Saturation 98% 08/16/2025 9:14 AM EST Inhaled Oxygen Concentration - - Weight 88.3 kg (194 lb 9.6 oz) 08/16/2025 9:14 A M EST Height 180.3 cm (5' 11 ) 08/16/2025 9:14 AM EST Body Mass Index 27.14 08/16/2025 9:14 AM EST documented in this encounter Functional Status * Over the past 2 weeks, how often have you been bothered by any of the following problems? Question Answer Date of Assessment Author Patient Health Questionnaire-2 Score 0 01/2025 10:00 AM Irene Khalil MA * Little interest or pleasure in doing things Answer Date of Assessment Author Not at all 08/16/2025 10:00 AM César Khalil MA * Feeling down, depressed, or hopeless Answer Date of Assessment Author Not at all 08/16/2025 10:00 AM César Khalil MA * Trouble falling or staying asleep, or sleeping too much Answer Date of Assessment Author Not at all 08/16/2025 10:00 AM César Khalil MA * Feeling tired or having little energy Answer Date of Assessment Author Not at all 08/16/2025 10:00 AM César Khalil MA * Poor appetite or overeating Answer Date of Assessment Author Not at all 08/16/2025 10:00 AM César Khalil MA * Feeling bad about yourself - or that you are a failure or have let yourself or your family down Answer Date of Assessment Author Not at all 08/16/2025 10:00 AM César Khalil MA * Trouble concentrating on things, such as reading the newspaper or watching television Answer Date of Assessment Author Not at all 08/16/2025 10:00 AM César Khalil MA * Moving or speaking so slowly that other people could have noticed? Or the opposite - being so fidgety or restless that you have been moving around a lot more than usual. Answer Date of Assessment Author Not at all 08/16/2025 10:00 AM éCsar Khalil MA * Thoughts that you would be better off or hurting yourself in some way Answer Date of Assessment Author Not at all 08/16/2025 10:00 AM César Khalil MA * Patient Health Questionnaire-9 Score Answer Date of Assessment Author 0 08/16/2025 10:00 AM César Khalil MA * Over the last 2 weeks, how often have you been bothered by any of the following problems? Question Answer Date of Assessment Author Feeling nervous, anxious, or on edge 0 01/2025 10:00 AM Irene Khalil MA Not being able to stop or co ntrol worrying 0 08/16/2025 10:00 AM Irene Khalil MA Worrying too much about diff erent things 1 08/16/2025 10:00 AM Irene Khalil MA Trouble relaxing 0 08/16/2025 10:00 AM Irene Khalil MA Being so restless that it is hard to sit still 1 08/16/2025 10:00 AM Irene Khalil MA Becoming easily annoyed or irritable 0 01/2025 10:00 AM Irene Khalil MA Feeling afraid as if somethi ng awful might happen 0 08/16/2025 10:00 AM Irene Khalil MA DANIS-7 Total Score 2 08/16/2025 10:00 AM Irene Khalil MA documented as of this encounter Progress Notes * Kalpana Scanlon MD - 08/16/2025 9:00 AM EST SUBJECTIVE: Jorge A John is a 69 y.o. year old male who presents for Chronic Disease Management . Jorge A John, 69 years Frequent Nocturia - Wakes up frequently at night to urinate - Occurs even when reducing fluid intake in the evening - Concerned about potential prostate issues - Last prostate-specific antigen (PSA) test was normal in 2021 Leg Cramps - Experienced cramps in the legs during a visit to the emergency room - Attributed to possible dehydration - Occasional cramping sensation in the toes, relieved by drinking water - No recurrence of severe cramps since the initial episode Palpitations - Occasional palpitations reported - Last electrocardiogram was normal - Blood pressure has been stable Foot Lump - Noticed a lump on the back of the left heel - No pain associated with the lump - Lump is only present on the left side Colonoscopy - Last colonoscopy performed in 2012 - Attempted to use a home test kit but found instructions complicated Social History Social History Narrative Not on file Problem List[1] Alcohol abuse Asplenia Benign hypertension Carotid artery stenosis Chronic hepatitis C (CMS/HCC) (HCC) Class 1 obesity Depressive disorder Diabetes mellitus type 2, uncomplicated (HCC) Gastrointestinal hemorrhage Hyperlipidemia Intermittent claudication (CMS/HCC) Microalbuminuria Myocardial infarction (HCC) 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 HENT: Negative. Respiratory: Negative. Cardiovascular: Negative. OBJECTIVE: Vitals: 08/16/25 0914 BP: 122/80 BP Location: Left arm Patient Position: Sitting BP Cuff Size: Adult Pulse: 65 Resp: 20 Temp: 96.6 ??F (35.9 ??C) TempSrc: Temporal SpO2: 98% Weight: 194 lb 9.6 oz (88.3 kg) Height: 5' 11 (1.803 m) Physical Exam Constitutional: Appearance: Normal appearance. Cardiovascular: Rate and Rhythm: Normal rate and regular rhythm. Pulmonary: Effort: Pulmonary effort is normal. Breath sounds: Normal breath sounds. Abdominal: General: Abdomen is flat. Palpations: Abdomen is soft. Musculoskeletal: Right lower leg: No edema. Left lower leg: No edema. Neurological: Mental Status: He is alert. Follow Up: No follow-ups on file. Medications Ordered Prior to Encounter[3] Problem List Items Addressed This Visit Diabetes mellitus type 2, uncomplicated (HCC) Relevant Orders POCT Glucose (Completed) POCT Hgb A1c (Completed) Comprehensive Metabolic Panel Hepatitis C Antibody with Reflex to HCV, RNA, Quantitative, Real-Time PCR Lipid Panel, Standard Vitamin D, 25-Hydroxy, Total, Immunoassay Albumin, Random Urine W/Creatinine Referral to Podiatry Nocturia Relevant Orders PSA, Total With Reflex to PSA, Free Referral to Urology Cramps of left lower extremity - Primary Relevant Orders TSH with Reflex to Free T4 Vitamin B12/Folate, Serum Panel Coronary artery disease involving clark's point coronary artery of clark's point heart Relevant Orders Referral to Cardiology Chronic hepatitis C (CMS/HCC) (HCC) Palpitations Relevant Orders Referral to Cardiology Benign hypertension Relevant Orders Referral to Cardiology Colon cancer screening Relevant Orders Referral to Gastroenterology Other Visit Diagnoses 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 - Ordered laboratory tests including urinalysis for diabetes monitoring. Referred to podiatry for foot evaluation related to diabetes. Nocturia: - Nocturia is persistent and concerning to patient. Differential includes possible prostatic etiology. - Ordered repeat prostate-specific antigen (PSA) test. Referred to urology for comprehensive evaluation of urinary symptoms and prostate health. Cramps of left lower extremity: - Lower extremity cramps occurred previously, possibly related to dehydration. No recurrence since initial event. - Advised hydration. Referred to podiatry for evaluation of left foot swelling and cramps. Coronary artery disease involving clark's point coronary artery of clark's point heart, unspecified whether angina present: - No chest pain or dyspnea reported. Occasional palpitations noted. Last electrocardiogram was normal. Blood pressure is stable. - Advised to follow up with cardiology. Patient to update contact information with special needs babysitter forfuture appointments. Chronic hepatitis C without hepatic coma (HCC): - Ordered laboratory tests including hepatitis panel. Dietary counseling: - Provided dietary counseling. Exercise counseling: - Provided exercise counseling. Overweight: - Provided counseling regarding weight management. Palpitations: - Occasional palpitations reported, not persistent. No associated chest pain or dyspnea. - Advised monitoring of symptoms. Follow up with cardiology as needed. Benign hypertension: - Blood pressure is stable. - Continue current management. Monitor blood pressure. Colon cancer screening: - Last colonoscopy performed in 2012. Patient attempted at-home fecal immunochemical test but was unable to complete due to difficulty with instructions. - Recommended colonoscopy due to elapsed time since last screening. Patient agreed to schedule colonoscopy when able. This note was drafted using [employer] (AI) technology. 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 Do not crush, chew, or split. 90 tablet 0 amLODIPine (Norvasc) 10 MG tablet Aspirin Low Dose 81 MG EC tablet Take 81 mg by mouth in the morning. atorvastatin (Lipitor) 40 MG tablet Blood Glucose Monitoring Suppl (TeknovusTouch Verio) w/Device kit 1 each 2 times daily. TEST BLOOD SUGARONCE DAILY 1 kit 0 enalapril (Vasotec) 20 MG tablet Take 1 tablet (20 mg) by mouth Once per day. TAKE 1 TABLET BY MOUTH ONCE DAILY 90 tablet 3 ezetimibe (Zetia) 10 MG tablet TAKE 1 TABLET BY MOUTH ONCE DAILY gabapentin (Neurontin) 100 MG capsule TAKE 1 CAPSULE POR V A ORAL OMERO VECES AL D A glucose blood (TeknovusTouch Verio) test strip USE DIRECTED TO TEST BLOOD SUGAR ONCE DAILY 100 each 11 ibuprofen 600 MG tablet TOME MICHI TABLETA POR V A ORAL CADA SEIS HORAS NEEDED FOR PAIN metFORMIN XR (Glucophage-XR) 500 MG 24 hr tablet Take 1 tablet (500 mg) by mouth with evening meal.Do not crush, chew, or split.TAKE 1 TABLET BY MOUTH EVERY EVENING WITH DINNER DO NOT BREAK, CRUSH, DISSOLVE OR CHEW 30 tablet 3 metoprolol succinate XL (Toprol-XL) 25 MG 24 hr tablet OneTouch Delica Lancets 33G misc 1 each 2 times daily. TEST BLOOD SUGAR ONCE DAILY 100 each 11 sildenafil (Viagra) 50 MG tablet TAKE 1 TABLET 1 HOUR BEFORE SEXUAL RELATIONS ONCE DAILY NEEDED.25 tablet 0 TRUEplus Lancets 33G misc Test blood sugar once daily as directed 100 each 3 [DISCONTINUED] sildenafil (Viagra) 50 MG tablet TAKE 1 TABLET 1 HOUR BEFORE SEXUAL RELATIONS ONCE DAILY NEEDED. 25 tablet 0 No current facility-administered medications on file prior to visit. documented in this encounter Plan of Treatment Scheduled Orders Name Type Priority Associated Diagnoses Orde r Schedule PSA, Total With Reflex to PSA, Free Lab Routine Nocturia Expected: 08/16/2025 (Approximate), Expires: 08/16/2026 Comprehensive Metabolic Panel Lab Routine Type 2 diabetes mellitus without complication, without long-term current use of insulin (HCC) Expected: 08/16/2025 (Approximate), Expires: 08/16/2026 Hepatitis C Antibody with Reflex to HCV, RNA, Quantitative, Real-Time PCR Lab Routine Type 2 diabetes mellitus without complication, without long-term current use of insulin (HCC) Expected: 08/16/2025, Expires: 08/16/2026 Lipid Panel, Standard Lab Routine Type 2 diabetes mellitus without complication, without long-term current use of insulin (HCC) Expected: 08/16/2025 (Approximate), Expires: 08/16/2026 TSH with Reflex to Free T4 Lab Routine Cramps of left lower extremity Expected: 08/16/2025 (Approximate), Expires: 08/16/2026 Vitamin B12/Folate, Serum Panel Lab Routine Cramps of left lower extremity Expected: 08/16/2025, Expires: 08/16/2026 Vitamin D, 25-Hydroxy, Total, Immunoassay Lab Routine Type 2 diabetes mellitus without complication, without long-term current use of insulin (HCC) 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 continuous 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 (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 Expected: 08/16/2025 (Approximate), Expires: 08/16/2026 Albumin, Random Urine W/Creatinine Lab Routine Type 2 diabetes mellitus without complication, without long-term current use of insulin (HCC) Expected: 08/16/2025 (Approximate), Expires: 08/16/2026 Scheduled Referrals Name Type Priority Associated Diagnoses Order Schedule Referral to Urology Outpatient Referral Routine Nocturia Expected: 08/16/2025 (Approximate), Expires: 08/16/2026 Referral to Cardiology Outpatient Referral Routine Coronary artery disease involving clark's point coronary artery of clark's point heart, unspecified whether angina present Palpitations Benign hypertension Expected: 08/16/2025 (Approximate), Expires: 08/16/2026 Referral to Podiatry Outpatient Referral Routine Type 2 diabetes mellitus without complication, without long-term current use of insulin (HCC) Expected: 08/16/2025 (Approximate), Expires: 08/16/2026 Referral to Gastroenterology Outpatient Referral Routine Colon cancer screening Expected: 08/16/2025 (Approximate), Expires: 08/16/2026 documented as of this encounter Procedures Procedure Name Priority Date/Time Associated Diagnosis Comments POCT GLYCATED HEMOGLOBIN, TOTAL Routine 08/16/2025 9:15 AM EST Type 2 diabetes mellitus without complication, without long-term current use of insulin (HCC) POCT GLUCOSE Routine 08/16/2025 9:15 AM EST Type 2 diabetes mellitus without complication, without long-term current use of insulin (HCC) documented in this encounter Results * POCT Hgb A1c (08/16/2025 9:15 AM EST) Hemoglobin A1C 5.7 4.0 - 5.7 % QC Media Lot # [id number] Lot# Expiration Date 51 Blood 08/16/2025 9:15 AM EST us Kalpana Scanlon MD POINT OF CARE TEST EN TER/EDIT ORDERABLES Final Result * POCT Glucose (08/16/2025 9:15 AM EST) Glucose Blood, POC 100 60 - 200 mg/dL QC Media Lot # [id number] Lot# Expiration Date 31,126 Blood Capillary blood specimen / Unknown 08/16/2025 9:15 AM EST us Kalpana Scanlon MD POINT OF CARE TEST EN TER/EDIT ORDERABLES Final Result documented in this encounter Visit Diagnoses Diagnosis Cramps of left lower extremity- Primary Type 2 diabetes mellitus without complication, without long-term current use of insulin (HCC) Nocturia Other intermediate (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 Coronary artery disease involving clark's point coronary artery of clark's point heart, unspecified whether angina present Chronic hepatitis C without hepatic coma (HCC) Dietary counseling Dietary surveillance and counseling Exercise counseling Overweight Palpitations Benign hypertension Essential hypertension, benign Colon cancer screening Special screening for malignant neoplasms, colon Encounter for immunization documented in this encounter Additional Health Concerns Assessment Noted Time PHQ-9 Depression Total Score: 0 08/16/20 25 10:00 AM EST documented as of this encounter Care Teams Building Manager Relationship Specialty Start Date End Date Kalpana Shelby MD [address] [place] [address] PCP - General Internal Medicine 07/31/23 documented as of this encounter
--- OUTSIDE RECORDS SUMMARY | 2025-08-16 11:42 | XMS_ITS | Encounter Summary ---
Author Organization [employer] Address [address] [place] [address] [address] [place] [address] Care Team Providers Care Cook Night Name Role Phone Josefina Aguillon Primary Care Provider [phone] Kalpana Shelby MD Primary Care Provide r Encounter Details Date Type Department Care Team (Late st Contact Info) Description 03/26/2023 Abstract [facility] MEDICINE [address] [place] [phone] Josefina Aguillon FNP [address] [place] [address] Social History Tobacco Use Types Packs/Day Years [...] PM EDT Recommended 10 year follow up ([facility] [place] us Historical Provider HEALTH MAINTENANCE Edited Result - Final documented in this encounter Visit Diagnoses Not on filedocumented in this encounter Additional Health Concerns Assessment Noted Time PHQ-9 Depression Total Score: 8 11/01/19 23 10:25 AM EST documented as of this encounter Care Teams Cook Night Relationship Specialty Start Date End Date Josefina Aguillon FNP [address] [place], [place] [phone] PCP - General Family Medicine 09/03/22 07/30/23 Kalpana Shelby MD [address] [place], [place] [phone] PCP - General Internal Medicine 07/31/23 documented as of this encounter
--- OUTSIDE RECORDS SUMMARY | 2025-08-16 11:42 | XMS_ITS | Encounter Summary ---
Author Organization [employer] Address [address] [facility] [address] [place] [address] Care Team Providers Care Clinical Counselor Name Role Phone Kalpana Shelby MD Primary Care Provide r Reason for Visit * Reason Onset Date Comments Med Refill 09/30/2024 Encounter Details Date Type Department Care Team ([facility] st Contact Info) Description 09/30/2024 Telephone [facility] MEDICINE [address] [place] [address] Kalpana Shelby MD [address] [place] [address] Med Refill Social History Tobacco Use Types [...] 50 MG tablet To be sent to: [facility] - [place], [place] - [address] [place] [address] documented in this encounter Plan of Treatment Not on file documented as of this encounter Visit Diagnoses Not on filedocumented in this encounter Additional Health Concerns Assessment Noted Time PHQ-9 Depression Total Score: 0 11/14/19 24 10:54 AM EST documented as of this encounter Care Teams Clinical Counselor Relationship Specialty Start Date End Date Kalpana Shelyb MD [address] [facility] [place] [address] PCP - General Internal Medicine 07/31/23 documented as of this encounter
--- OUTSIDE RECORDS SUMMARY | 2025-08-16 11:42 | XMS_ITS | Encounter Summary ---
Author Organization [employer] Address [address] [facility] [address] [place] [address] Care Team Providers Care Surveillance Agent Name Role Phone Kalpana Shelby MD Primary Care Provide r Reason for Visit * Reason Onset Date Comments Chart Prep 08/15/2025 Encounter Details Date Type Department Care Team ([facility] st Contact Info) Description 08/15/2025 Telephone [facility] [address] [place] [id number] Kalpana Shelby MD [address] [place] [address] Chart Prep Social History Tobacco Use Types Packs/Day Years [...] is your housing situation today? I have josewilly rosenbaum 08/16/[address] you [...] encounter Miscellaneous Notes * Telephone Encounter - Diana Portillo MA - 08/15/2025 8:51 AM EST Chart Prep Labs: done Images: done Referrals: not applicable Vaccines due: Covid, Flu, PCV20, Hep B, Hep A, MCV4, RSV, and HIB Screenings: colonoscopy Overdue care gaps: A1c, Glucose, SBIRT, SDOH, PHQ-9, and DANIS-7 documented in this encounter Plan of Treatment Not on file documented as of this encounter Visit Diagnoses Not on filedocumented in this encounter Additional Health Concerns Assessment Noted Time PHQ-9 Depression Total Score: 0 11/14/19 24 10:54 AM EST documented as of this encounter Care Teams Surveillance Agent Relationship Specialty Start Date End Date Kalpana Shelby MD [address] [place] [address] PCP - General Internal Medicine 07/31/23 documented as of this encounter
--- OUTSIDE RECORDS SUMMARY | 2025-08-16 11:42 | XMS_ITS | Encounter Summary ---
Author Organization [employer] Address [address] [facility] [address] [place] [address] Care Team Providers Care Oyster Floater Name Role Phone Kalpana Shelby MD Primary Care Provide r Reason for Visit * Reason Comments Med Refill Encounter Details Date Type Department Care Team ([facility] st Contact Info) Description 08/10/2025 Refill [facility] [address] [place] [address] Kalpana Shelby MD [address] [place], [place] [phone] Erectile dysfunction, unspecified erectile dysfunction type Social History Tobacco Use Types Packs/Day Years [...] documented as of this encounter Visit Diagnoses Diagnosis Erectile dysfunction, unspecified erectile dysfunction type documented in this encounter Additional Health Concerns Assessment Noted Time PHQ-9 Depression Total Score: 0 11/14/19 24 10:54 AM EST documented as of this encounter Care Teams Oyster Floater Relationship Specialty Start Date End Date Kalpana Shelby MD [address] [place] [id number] PCP - General Internal Medicine 07/31/23 documented as of this encounter
--- OUTSIDE RECORDS SUMMARY | 2025-08-16 11:42 | XMS_ITS | Encounter Summary ---
Author Organization [employer] Address [address] [facility] [address] [place] [address] Care Team Providers Care Rubber Heel And Sole Press Tender Name Role Phone Kalpana Shelby MD Primary Care Provide r Encounter Details Date Type Department Care Team (Latest Contact Info) Description 08/16/2025 Travel Social History Tobacco Use Types Packs/Day Years [...] AM EDT documented as of this encounter Functional Status * Over the [...] 08/16/2025 10:00 AM César Khalil MA * Thoughts that you would [...] Khalil MA documented as of this encounter Plan of Treatment Not on file documented as of this encounter Visit Diagnoses Not on filedocumented in this encounter Additional Health Concerns Assessment Noted Time PHQ-9 Depression Total Score: 0 08/16/20 25 10:00 AM EST documented as of this encounter Care Teams Rubber Heel And Sole Press Tender Relationship Specialty Start Date End Date Kalpana Shelby MD [address] [place] [address] PCP - General Internal Medicine 07/31/23 documented as of this encounter
--- OUTSIDE RECORDS SUMMARY | 2025-08-16 11:42 | XMS_ITS | Clinical Summary ---
Author Organization [employer] Address [address] [place] [address] Care Team Providers Care Centrifugal Drier Operator Name Role Phone Kalpana Shelby MD Primary Care Provide r Allergies No known active allergies Medications Aspirin Low Dose 81 MG EC tablet Take 81 mg by mouth in the morning. 08/12/20 22 Active ezetimibe (Zetia) 10 MG tablet TAKE 1 TABLET BY MOUTH ONCE DAILY 10/31/19 23 Active gabapentin (Neurontin) 100 MG capsule TAKE 1 CAPSULE POR V A ORAL OMERO VECES AL D A 10/16/19 23 Active ibuprofen 600 MG tablet TOME MICHI TABLETA POR V A ORAL CADA SEIS HORAS NEEDED FOR PAIN 10/08/20 22 Active acetaminophen (Tylenol 8 Hour) 650 MG ER tabletIndicatio ns:Bilateral shoulder pain, unspecified chronicity Take 1 tablet (650 mg) by mouth every 8 (eight) hours if needed for mild pain. Do not crush, chew, or split. 90 tablet 11/01/19 23 Active TRUEplus Lancets 33G miscIndications :Type 2 diabetes mellitus without complication, unspecified whether care home insulin use Test blood sugar once daily as directed 100 each 3 11/14/19 23 Active glucose blood (OneTouch Verio) test stripIndication s:Type 2 diabetes mellitus without complication, unspecified whether care home insulin use USE DIRECTED TO TEST BLOOD SUGAR ONCE DAILY 100 each 11 08/19/20 23 Active OneTouch Delica Lancets 33G misc 1 each 2 times daily. TEST BLOOD SUGAR ONCE DAILY 100 each 11 08/19/20 23 Active Blood Glucose Monitoring Suppl (OneTouch Verio) w/Device kit 1 each 2 times daily. TEST BLOOD SUGAR ONCE DAILY 1 kit 11/07/20 23 Active amLODIPine (Norvasc) 10 MG tablet 03/11/20 24 Active metoprolol succinate XL (Toprol-XL) 25 MG 24 hr tablet 03/11/20 24 Active atorvastatin (Lipitor) 40 MG tablet 03/11/20 24 Active metFORMIN XR (Glucophage-XR) 500 MG 24 hr tabletIndicatio ns:Type 2 diabetes mellitus without complication, unspecified whether vermin exterminator insulin use Take 1 tablet (500 mg) by mouth with evening meal. Do not crush, chew, or split.TAKE 1 TABLET BY MOUTH EVERY EVENING WITH DINNER DO NOT BREAK, CRUSH, DISSOLVE OR CHEW 30 tablet 3 03/16/20 25 Active enalapril (Vasotec) 20 MG tablet Take 1 tablet (20 mg) by mouth Once per day. TAKE 1 TABLET BY MOUTH ONCE DAILY 90 tablet 3 05/19/20 25 026 Active sildenafil (Viagra) 50 MG tabletIndicatio ns:Erectile dysfunction, unspecified erectile dysfunction type TAKE 1 TABLET 1 HOUR BEFORE SEXUAL RELATIONS ONCE DAILY NEEDED. 25 tablet 08/11/20 25 Active sildenafil (Viagra) 50 MG tabletIndicatio ns:Erectile dysfunction, unspecified erectile dysfunction type TAKE 1 TABLET 1 HOUR BEFORE SEXUAL RELATIONS ONCE DAILY NEEDED. 25 tablet 07/08/20 25 025 Discontinued Active Problems Problem Noted Date Diagnosed Date Nocturia 08/16/2025 Cramps of left lower extremity 08/16/2025 Palpitations 08/16/2025 Coronary artery disease invo lving tanana coronary artery of tanana heart 10/26/2024 Erectile dysfunction 11/14/2023 Colon cancer [...] consulting health care provider Chronic hepatitis C (CMS/HCC) 04/30/2012 Assessment & Plan (11/01/2022 10:42 AM [...] Encounters Date Type Department Care Team Description 08/16/2025 9:00 AM EST Office Visit [facility] [address] [place] [phone] Kalpana Shelby MD Cramps of left lower extremity (Primary Dx); Type 2 diabetes mellitus without complication, without long-term current use of insulin (HCC); Nocturia; Other care home (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; Coronary artery disease involving tanana coronary artery of tanana heart, unspecified whether angina present; Chronic hepatitis C without hepatic coma (HCC); Dietary counseling; Exercise counseling; Overweight; Palpitations; Benign hypertension; Colon cancer screening; Encounter for immunization 08/16/2025 Travel 08/15/[address] [address] Kalpana Shelby MD Chart Prep 08/10/2025 Refill [facility] [address] [place] [address] [phone] Kalpana Shelby MD Erectile dysfunction, unspecified erectile dysfunction type 08/09/2025 Orders Only [facility] External Provider, [facility] 07/08/2025 Refill [facility] [address] [place], [place] [phone] Kalpana Shelby MD Erectile dysfunction, unspecified erectile dysfunction type 07/06/2025 Patient Outreach [facility] [address] [place], [place] [phone] Kalpana Shelby MD Pre-visit Planning ((Unable to reach for PVP screening, LVM) to be completed in office ) 05/19/2025 Refill [facility] [address] [place], [place] [phone] Josefina Aguillon FNP 05/19/2025 Refill [facility] [address] [place], [place] [phone] Kalpana Shelby MD Erectile dysfunction, unspecified erectile dysfunction type from Last 3 Months Immunizations Immunization Administration [...] 03/23/2019 Pneumococcal Conjugate PCV 13 02/23/2019 Pneumococcal Conjugate PCV 20 08/16/2025 Pneumococcal Polysaccharide PPSV23 12/02/2019, Tdap 07/14/2018,04/12/2013 Zoster, [...] your housing situation today? I have jose ilsa 08/16/[address] you li [...] Mass Index 27.14 08/16/2025 9:14 AM EST Plan of Treatment Health Maintenance [...] 06/17/2023 06/17/2013 Colorectal Cancer Screening 06/17/2023 Diabetes: Urine Protein Screening 11/14/2024 11/14/2023, 04/12/2022, 01/01/2021 Lipid Panel 03/11/2025 03/11/2024, 09/12, 08/16/2022, Additional history exists COVID-19 Vaccine ( season) 2025 Influenza Vaccine (#1) 2025 , 08/26/2019, 07/09/2018, Additional history exists Diabetes: Hemoglobin A1C 02/13/2026 025, 09/26/2023, 11/01/2022, Additional history exists Eye Exam 03/11/2026 03/11/2024, 02/12, 03/11/2024, Additional history exists Depression Screening 08/16/2026 08/16/2025, 08/16/20 SDOH Screening 08/16/2026 08/16/2025 Tobacco Screening 08/16/2026 08/16/2025 DTaP/Tdap/Td Vaccines (3 - Td or Tdap) 07/14/2028 07/14/2018, 04/12/2013 Zoster Vaccines Completed 12/20/2019, 08/26/2019 Pneumococcal Vaccine: 50+ Years Completed 08/16/2025, 12/02/2019, 02/23/2019, Additional history exists HPV Vaccines Aged Out No longer eligi [...] without long-term current use of insulin (HCC) HIGH SENSITIVITY TROPONIN I Routine 08/09/2025 9:36 PM EDT URINALYSIS WITH REFLEX MICROSCOPIC Routine 08/09/2025 9:36 PM EDT XR THORACIC SPINE 3 VIEWS Routine 08/09/2025 8:25 PM EDT XR CHEST 1 VIEW Routine 08/09/2025 8:24 PM EDT HIGH SENSITIVITY TROPONIN I Routine 08/09/2025 7:32 PM EDT Coronary artery disease involving tanana coronary artery of tanana heart, unspecified whether angina present COMPLETE BLOOD COUNT MAN DIF Routine 08/09/2025 7:32 PM EDT Coronary artery disease involving tanana coronary artery of tanana heart, unspecified whether angina present CBC WITH AUTO DIFFERENTIAL Routine 08/09/2025 7:32 PM EDT Coronary artery disease involving tanana coronary artery of tanana heart, unspecified whether angina present CREATINE KINASE, TOTAL Routine 08/09/2025 7:32 PM EDT Coronary artery disease involving tanana coronary artery of tanana heart, unspecified whether angina present MAGNESIUM Routine 08/09/2025 7:32 PM EDT Coronary artery disease involving tanana coronary artery of tanana heart, unspecified whether angina present COMPREHENSIVE METABOLIC PANEL Routine 08/09/2025 7:32 PM EDT Coronary artery disease involving tanana coronary artery of tanana heart, unspecified whether angina present COVID-19 ID NOW (BRUNO) Routine 08/09/2025 7:32 PM EDT Coronary artery disease involving tanana coronary artery of tanana heart, unspecified whether angina present APTT Routine 08/09/2025 7:32 PM EDT Coronary artery disease involving tanana coronary artery of tanana heart, unspecified whether angina present PROTHROMBIN TIME-INR Routine 08/09/2025 7:32 PM EDT Coronary artery disease involving tanana coronary artery of tanana heart, unspecified whether angina present INFLUENZA A B2 ID NOW (BRUNO) Routine 08/09/2025 7:32 PM EDT Coronary artery disease involving tanana coronary artery of tanana heart, unspecified whether angina present LIPID PANEL, STANDARD Routine 03/11/2024 2:51 PM EDT ALBUMIN, RANDOM URINE W/CREATININE Routine 11/14/2023 12:09 PM EST Mixed hyperlipidemia HM COLONOSCOPY Routine 06/17/2013 2:17 PM EDT from Last 3 Months or Most Recently Relevant to Health Maintenance Results * POCT Hgb A1c (08/16/2025 9:15 AM EST) Hemoglobin A1C 5.7 4.0 - 5.7 % QC Media Lot # [id number] Lot# Expiration Date 51227 Blood 08/16/2025 9:15 AM EST Kalpana Scanlon MD POINT OF CARE TEST EN TER/EDIT ORDERABLES Final Result * POCT Glucose (08/16/2025 9:15 AM EST) Glucose Blood, POC 100 60 - 200 mg/dL QC Media Lot # [id number] Lot# Expiration Date 31,126 Blood Capillary blood specimen / Unknown 08/16/2025 9:15 AM EST us Kalpana Scanlon MD POINT OF CARE TEST EN TER/EDIT ORDERABLES Final Result * (ABNORMAL) High Sensitivity Troponin I (08/09/2025 9:36 PM EDT) Only the most recent of2 resultswithin the time period is included. TROPONIN I HIGH SENSITIVITY 82.3(H) <3.5 - 35.0 ng/L [facility] Comment:The Bruno high sens itivity Troponin-I results should beused in conjunction with other diagnostic information suchas ECG, clinical observations and information, and patientsymptoms to aid in the diagnosis of RI. 08/09/2025 9:36 PM EDT 08/09/2025 9:40 PM EDT us Generic External Data Provider LAB BLOOD ORDERAB LES Final Result Performing Organization Address [facility] Co de Phone Number [facility] [address] [place] [address] [phone] Urinalysis w/reflex microscopic (08/09/2025 9:36 PM EDT) Color Urine Yellow [facility] Appearance Urine Clear [facility] PH 6.0 5.0 - 9.0 [facility] Glucose Urine UA Negative Negative mg/dL [facility] Urine Blood Negative Negative [facility] Specific [place] - Urine 1.010 1.005 - 1.025 [facility] Urine Protein Negative Neg-Trace mg/dL [facility] Urine Ketones Negative Negative mg/dL [facility] Nitrite Urine Negative Negative [facility] Leukocyte Esterase Urine Negative Negative [facility] 08/09/2025 9:36 PM EDT 08/09/2025 9:40 PM EDT Narrative [facility] - 08/09/2025 9:50 PM EDT Urine, Clean Catch us Generic External Data Provider LAB URINE ORDERAB LES Final Result Performing Organization Address [facility]/ZIP Co de Phone Number [facility] [address] [place] [phone] * XR Thoracic Spine 3 Views (08/09/2025 8:25 PM EDT) Anatomical Region Laterality Modality Spine, T-spine Radiographic Glendy ging 08/09/2025 8:25 PM EDT Narrative 08/09/2025 8:26 PM EDT [address] [address] XRay Report Signed Patient: Jorge A Iqbal MR# : [id number] : 1955 Acct:[id number] Age/Sex: 69 / M ADM Date: 08/09/25 Loc: HO.ED Attending Dr: Ordering Physician: Jose Krause Date of Service: 08/09/25 Procedure(s): XR thoracic spine 3V Accession Number(s): [id number] cc: Jose Krause; Kalpana Shelby MD Reason [...] in OV> 08/09/252025 DD/ 24 TD/TT: 08/09/252024 Physicist [place]: Procedure Note Donotuseinterpreter, Image - 08/09/[address] [address] XRay Report Signed Patient: Kenzie IqbalR# : [id number] : 1955cct:[id number] Age/Sex: 69 / MADM Date: 08/09/25 Loc: HO.ED Attending Dr: Ordering Physician: Jose Krause Date of Service: 08/09/25 Procedure(s): XR thoracic spine 3V Accession Number(s): [id number] cc: Jose Krause; Kalpana Shelby MD Reason [...] in OV> 08/09/252025 DD/ 24 TD/TT: 08/09/252024 Physicist [place]: [facility] External Provider IMG XR PROCEDURES Final Result * XR Chest 1 View (08/09/2025 8:24 PM EDT) Anatomical Region Laterality Modality Chest Radiographic Glendy ging 08/09/2025 8:24 PM EDT Narrative 08/09/2025 8:25 PM EDT [place] [address] XRay Report Signed Patient: Jorge A Iqbal MR# : [id number] : 1955 Acct:[id number] Age/Sex: 69 / M ADM Date: 08/09/25 Loc: .ED Attending Dr: Ordering Physician: Jose Krause Date of Service: 08/09/25 Procedure(s): XR chest 1V Accession Number(s): [id number] cc: Jose Krause; Kalpana Shelby MD Reason [...] in OV> 08/09/252024 DD/ 23 TD/TT: 08/09/252023 Physicist [place]: Procedure Note Donotmary jointerpreter, Image - 08/09/[address] [address] XRay Report Signed Patient: Boubacar Iqbal# : [id number] : 7Acct:[id number] Age/Sex: 69 / MADM Date: 08/09/25 Loc: HO.ED Attending Dr: Ordering Physician: Jose Krause Date of Service: 08/09/25 Procedure(s): XR chest 1V Accession Number(s): [id number] cc: Jose Krause; Kalpana Shelby MD Reason [...] in OV> 08/09/252024 DD/ 23 TD/TT: 08/09/252023 Physicist [place]: [facility] External Provider IMG XR PROCEDURES Final Result * Influenza A B2 ID NOW (Bruno) (08/09/2025 7:32 PM EDT) IDNOW SERIAL# [id number] [facility] Influenza A Negative Negative [facility] Influenza B2 Negative Negative [facility] Influenza A B2 Note See Note [facility] Comment:The Bruno ID NOW In [...] EDT us Generic External Data Provider LAB MICROBIOLOGY - GENERAL ORDERABLES Final Result [facility] [address] [place] [phone] * COVID-19 ID NOW (BRUNO) (08/09/2025 7:32 PM EDT) IDNOW SERIAL# [id number] [facility] COVID-19 TEST Negative Negative [facility] COVID-19 NOTE See Note [facility] Comment: Results are for the identification of SARS-CoV2 RNA. TheSARS-CoV2 RNA is generally detectable in respiratory samplesduring the acute phase of infection. Positive results areindicative of the presence of SARS-CoV-2 RNA; clinicalcorrelation with patient history and other diagnosticinformation is necessary to determine patient infectionstatus. Positive results do not rule out bacterial infectionor co- infection with other viruses.Testing facilities within the [facility] and [facility] are required to report all positive results [...] LAB MOLECULAR ILEANA GNOSTICS ORDERABLES Final Result [facility] [address] [place] [phone] * (ABNORMAL) Complete Blood Count Manual Diff (08/09/2025 7:32 PM EDT) White Blood Count 9.5 4.8 - 10.8 X10*3/uL [facility] Red Blood Count 4.62 4.60 - 5.80 X10*6/uL [facility] Hemoglobin 14.3 14.0 - 18.0 g/dl [facility] Hematocrit 42.3 42.0 - 52.0 % [facility] Mean Corpuscular Volume 91.6 80.0 - 98.0 fL [facility] Mean Corpuscular Hemoglobin 31.0 27.0 - 33.0 pg [facility] Mean Corpuscular HGB Conc 33.8 31.0 - 36.0 g/dl [facility] Red Cell Distribution Width 14.1 11.0 - 16.0 % [facility] Platelet Count 213 160 - 400 X10*3/uL [facility] Mean Platelet Volume 11.3 9.4 - 12.4 fL [facility] NRBC Pct Auto 0.0 0.0 - 0.2 /100WBC [facility] NRBC Abs Auto 0.000 0.0 - 0.012 X10*3/uL [facility] Neutrophils % Manual 69 45 - 73 % [facility] Band Neutrophils Percent 0(L) 3 - 5 % [facility] Lymphocytes Percent Manual 17(L) 20 - 40 % [facility] Monocytes Percent Manual 13(H) 2 - 11 % [facility] BASOPHILS % MANUAL 1 0 - 2 % [facility] NEUTROPHILS ABSOLUTE MANUAL 6.6 2.0 - 8.3 X10*3/uL [facility] LYMPHOCYTES ABSOLUTE MANUAL 1.6 1.2 - 4.9 X10*3/uL [facility] MONOCYTES ABSOLUTE MANUAL 1.2 0.1 - 1.2 X10*3/uL [facility] BASOPHILS ABSOLUTE MANUAL 0.1 0.0 - 0.2 X10*3/uL [facility] Platelet Estimate NORMAL NORMAL [facility] Platelet Morphology Comment NORMAL [facility] RBC Morphology NORMAL [facility] 08/09/2025 7:32 PM EDT 08/09/2025 7:36 PM EDT Generic External Data Provider LAB BLOOD ORDERAB LES Final Result Performing Organization Address [facility] Co de Phone Number [facility] [address] [place] [phone] * Partial Thromboplastin Time, Activated (APTT) (08/09/2025 7:32 PM EDT) Partial Thromboplastin Time 27.1 26.7 - 34.1 SEC [facility] 08/09/2025 7:32 PM EDT 08/09/2025 7:36 PM EDT Generic External Data Provider LAB BLOOD ORDERAB LES Final Result Performing Organization Address [facility] Co de Phone Number [facility] [address] [place] [phone] * Prothrombin Time-INR (08/09/2025 7:32 PM EDT) Prothrombin Time 11.8 10.9 - 12.4 SEC [facility] INTERNATIONAL NORM RATIO 1.0 0.9 - 1.1 [facility] Comment:INTERNATIONAL NORMAL IZED RATIO (INR) [...] Final Result Performing Organization Address [facility] Co de Phone Number [facility] [address] [place] [phone] * Magnesium (08/09/2025 7:32 PM EDT) [facility] Magnesium 2.2 1.6 - 2.6 mg/dL [facility] 08/09/2025 7:32 PM EDT 08/09/2025 7:36 PM EDT Generic External Data Provider LAB BLOOD ORDERAB LES Final Result Performing Organization Address [facility] de Phone Number [facility] [address] [place] [phone] * (ABNORMAL) Creatine Kinase, Total (08/09/2025 7:32 PM EDT) [facility] Creatine Kinase Total 394(H) 38 - 174 U/L [facility] 08/09/2025 7:32 PM EDT 08/09/2025 7:36 PM EDT Generic External Data Provider LAB BLOOD ORDERAB LES Final Result Performing Organization Address [facility] de Phone Number [facility] [address] [place] [phone] * (ABNORMAL) Comprehensive Metabolic Panel (08/09/2025 7:32 PM EDT) [facility] Sodium 136 135 - 145 mmol/L [facility] Potassium 4.5 3.3 - 5.1 mmol/L [facility] Chloride 104 96 - 108 mmol/L [facility] Carbon Dioxide 25 22 - 29 mmol/L [facility] Anion Gap 12 12 - 20 [facility] Urea Nitrogen (BUN) 22(H) 9 - 16 mg/dL [facility] Creatinine, Serum 0.85 0.5 - 1.4 mg/dL [facility] Creatinine Clr Calc Pharmacy 88.5 [facility] Comment:eGFR (calculated fro m the MDRD study equation) and eCrCl(calculated from the Cockcroft-Gault equation) are based ondifferent parameters and may not yield comparable results.If eCrCl result is absurd, please check patient'sheight/weight. Estimated Glomerular Filt Rate >60 [facility] Comment:Chronic Kidney Disea se: Estimated GFR < 60 mL/min/1.54v9Tbdyad Kidney Disease: Estimated GFR < 15 mL/min/1.73m2 Glucose 105 60 - 115 mg/dL [facility] Calcium 9.0 8.4 - 10.2 mg/dL [facility] Bilirubin, Total 0.6 0.0 - 1.0 mg/dL [facility] Aspartate Amino Transferase 46(H) 5 - 37 U/L [facility] Alanine Aminotransferase 35 0 - 40 U/L [facility] Total Protein 8.3(H) 6.5 - 8.0 g/dL [facility] Albumin Level 4.6 3.5 - 5.0 g/dL [facility] Alkaline Phosphatase 70 39 - 117 U/L [facility] 08/09/2025 7:32 PM EDT 08/09/2025 7:36 PM EDT us Generic External Data Provider LAB BLOOD ORDERAB LES Final Result [facility] [address] [place] [phone] * Lipid Panel, Standard (03/11/2024 2:51 PM EDT) Triglycerides 80 <150 mg/dL [facility] Comment:Desirable Triglyceri de: less than 150 mg/dLBorderline High Triglyceride 150-199 mg/dLHigh Triglyceride: 200-499 mg/dLVery High Triglyceride: greater than or equal to 5OO mg/dL Cholesterol 136 <200 mg/dL [facility] Comment:Desirable Cholestero l: less than 200 mg/dLBorderline High Cholesterol: 200-239 mg/dLHigh Cholesterol: greater than 239 mg/dL LDL Cholesterol Calculated 68 <100 mg/dL [facility] Comment:Desirable LDL: less than 100 mg/dLNear Optimal/Above Optimal LDL: 110- 129 mg/dLBorderline High LDL: 130-159 mg/dLHigh LDL: 160-189 mg/dLVery High LDL: greater than or equal to 190 mg/dL HDL Cholesterol 52 >40 mg/dL [facility] Comment:Desirable HDL: great er than 40 mg/dL Note: This HDL assay may give artificially low results in patients with liver disease. 03/11/2024 2:51 PM EDT 03/11/2024 2:51 PM EDT us Generic External Data Provider LAB BLOOD ORDERAB LES Final Result Performing Organization Address City/[facility]/ZIP Co de Phone Number [facility] [address] [place] [phone] * Albumin, Random Urine W/Creatinine (11/14/2023 12:09 PM EST) Creatinine, Urine 58.27 mg/dL [facility] Microalbumin Urine 10.0 mg/L [facility] Microalbum Creatinine Ratio Ur 17.1 <30 ug/mg cr [facility] Comment:Albumin/Creatinine R atio Reference Ranges: Normal: < 30 ug/mg creatinine Microalbuminuria: 30 - 300 ug/mg creatinineClinical Albuminuria: > 300 ug/mg creatinine 11/14/2023 12:0 9 PM EST 11/14/2023 1:19 PM EST us Kalpana Scanlon MD LAB URINE ORDERABLES Final Result Performing Organization Address [facility]/ZIP Co de Phone Number [facility] [address] [place] [phone] * Colonoscopy (06/17/2013 2:17 PM EDT) Colonoscopy Normal Normal Narrative Cookie Lubin - 06/17/2013 2:17 PM EDT Recommended 10 year follow up ([facility]) us Historical Provider HEALTH MAINTENANCE Edited Result - Final from Last 3 Months or Most Recently Relevant to Health Maintenance Insurance [facility] STANDARD MEDICARE [place] [phone] Care Teams Centrifugal Drier Operator Relationship Specialty Start Date End Date Kalpana Shelby MD [address] [place] [phone] PCP - General Internal Medicine 07/31/23
--- OUTSIDE RECORDS SUMMARY | 2025-08-16 11:42 | XMS_ITS | Encounter Summary ---
Author Organization [employer] Address [address] [place] [address] [address] [place] [address] Care Team Providers Care Hand Potter Name Role Phone Josefina Aguillon Primary Care Provider [phone] Kalpana Shelby MD Primary Care Provide r Encounter Details Date Type Department Care Team (Late st Contact Info) Description 12/18/2022 Orders Only [facility] MEDICINE [address] [place] [address] Josefina Aguillon FNP [address] [place] [address] Mixed hyperlipidemia (Primary Dx); Type 2 diabetes mellitus without complication, unspecified whether cupola tapper insulin use ([facility]) Social History Tobacco Use Types Packs/Day Years [...] 2 diabetes mellitus without complication, unspecified whether cupola tapper insulin use ([facility]) Expected: 01/18/2023 (Approximate), Expires: 12/19/2023 documented as of this encounter Procedures Procedure Name Priority Date/Time Associated Diagnosis Comments ALBUMIN, RANDOM URINE W/CREATININE Routine 11/14/2023 12:09 PM EST Mixed hyperlipidemia documented in this encounter Results * Albumin, Random Urine W/Creatinine (11/14/2023 12:09 PM EST) Creatinine, Urine 58.27 mg/dL [facility] Microalbumin Urine 10.0 mg/L [facility] Microalbum Creatinine Ratio Ur 17.1 <30 ug/mg cr [facility] Comment:Albumin/Creatinine R atio Reference Ranges: Normal: < 30 ug/mg creatinine Microalbuminuria: 30 - 300 ug/mg creatinineClinical Albuminuria: > 300 ug/mg creatinine 11/14/2023 12:0 9 PM EST 11/14/2023 1:19 PM EST us Kalpana Scanlon MD LAB URINE ORDERABLES Final Result Performing Organization Address City/State/[facility] Co de Phone Number [facility] [address] [place] [phone] documented in this encounter Visit Diagnoses Diagnosis Mixed hyperlipidemia- Primary Type 2 diabetes mellitus without complication, unspecified whether custodial insulin use documented in this encounter Additional Health Concerns Assessment Noted Time PHQ-9 Depression Total Score: 8 11/01/19 23 10:25 AM EST documented as of this encounter Care Teams Hand Potter Relationship Specialty Start Date End Date Josefina Aguillon FNP [address] [place] [address] PCP - General Family Medicine 09/03/22 07/30/23 Kalpana Shelby MD [address] [place] [address] PCP - General Internal Medicine 07/31/23 documented as of this encounter
[2025-08-16 12:16] LABS: Microalbum/Creatinine Ratio Ur 38.2 ug/mg cr (<30)
[2025-08-16 12:45] LABS: Alanine Aminotransferase 31 U/L (0-40); Albumin Level 4.4 g/dL (3.5-5.0); Alkaline Phosphatase 64 U/L (39-117); Anion Gap 12 (12-20); Aspartate Amino Transferase 42 U/L (5-37); Blood Urea Nitrogen 11 mg/dL (9-16); Calcium 9.2 mg/dL (8.4-10.2); Carbon Dioxide 27 mmol/L (22-29); Chloride 103 mmol/L (96-108); Cholesterol 147 mg/dL (<200); Estimated Glomerular Filt Rate > 60; HDL Cholesterol 50 mg/dL (>40); Potassium 4.6 mmol/L (3.3-5.1); Sodium 137 mmol/L (135-145); Total Protein 7.8 g/dL (6.5-8.0); Triglycerides 122 mg/dL (<150)
[2025-08-16 12:54] LABS: PSA,Total (Free>4and<10) 0.85 ng/mL (0.00-4.00)
[2025-08-16 13:00] LABS: ~HepC Num1 10.12 S/CO (0.00-0.79); ~Hepatitis C Antibody Reactive (Nonreactive)
[2025-08-16 13:12] LABS: Folate 15.0 ng/mL (> or = 4.0); Vitamin B12 497 pg/mL (200-900)
[2025-08-22 20:53] LABS: HCV Log PCR <1.18 NOT DETECTED Log IU/mL (NOT DETECTED); HepC Viral Load <15 NOT DETECTED IU/mL (NOT DETECTED)
== END 2025-08-16 10:02 | disposition home or self-care (01) ==
LOC: HO.HHCL 10:01
PROVIDERS: PCP Internal Medicine; Visit Provider Internal Medicine
DX: R25.2 Cramp and spasm (principal); E11.9 Type 2 diabetes mellitus without complications; Z12.5 Encounter for screening for malignant neoplasm of prostate
CPT/HCPCS: 36415; 80053; 80061; 82043; 82306; 82570; 82607; 82746; 84153; 84443; 86803; 87522

== ENCOUNTER 2025-08-23 11:24 | Outpatient (AMB) | payer MEDICARE, MEDICAID, SELFPAY ==
--- NOTE | 2025-08-23 11:31 | A.OFFVIS_ITS ---
Vital Signs 08/23/25 11:31 Height 5 ft 11 in Weight 215 lb BMI 30.0 Intake Visit Reasons: Type 2 Diabetes mellitus w/o complication Intake Note: Jorge A is a 69 year old male who presents today as a new patient for a diabetic foot evaluation. Patient state his last known glucose was 126 about two weeks ago,and he is unsure of what his last A1c was. Patient denies exp eriencing any numbness or tingling and he has no previous medical history of wounds or amputation to his feet. Patient reports he has concerns of a bump on the back of his left heel. Allergies No Known Allergies Allergy (Verified 08/19/25 12:25) HPI HPI Type 2 Diabetes mellitus w/o complication: Details: 69-year-old male past medical history diabetes mellitus type 2 presents for a bump to his left heel. He noticed it 1 month ago. He does not have any pain to the bump. He does a lot of walking. He also complains of calluses to his feet that he has been debriding at home. Also noticed yellow discoloration to his nails recently. [facility] Medical History Bleeding hemorrhoids Hyperlipidemia CAD (coronary artery disease) Hypertension Diabetes Surgical History Hx of colonoscopy (~2012) S/P cardiac catheterization (~10/2020) Family History Mother Diabetes Hypertension Heart problem Father No problems noted. Social History (System 08/19/25 @ 12:25 by Grace Perry) Alcohol intake: current Alcohol intake frequency: holidays/special occasions only Alcohol type: beer Patient Tobacco Use Status: Former Tobacco user Tobacco use type: Cigarette Years Smoked: 4 Physical Exam Vital Signs: BMI result Body Mass Index 30.0 Extrem Other: *Bilateral Lower Extremity Focused Diabetic Foot Exam Vascular: DP/PT 2/4, CFT<3s to digits, TG warm to cool, no pedal edema, pedal hair absent Derm: Skin: annular scaling bilateral plantar feet. RIGHT: hyperkeratotic lesions sub- medial hallux, distal tuft 3rd digit, and sub 5th metatarsal. LEFT: hyperkeratotic lesions sub-medial hallux, distal tuft 3rd digit. Interdigital spaces: Clear, no maceration or fungal infection. Nails: Thickened elongated dystrophic discolored toenails x 10 with subungual debris. Neuro: Melrude-bro monofilament (10g) test 10/10 intact to right foot, 10/10 intact to left foot. Msk: High arch feet bilaterally. Palpable left calcaneus posterior protube tin. No pain on palpation. No pain on palpation of the Achilles tendon or on range of motion. Semi rigid flexion deformity digits 2 through 5 bilaterally. Footwear Assessment: Shoes inspected; appropriate fit, no excessive wear, or foreign objects noted. Office Procedures AMB Debridement/Avulsion Podia Details: Procedure: Callus debridement Location: 3 lesions right foot, 2 lesions left foot Anesthesia: N/A Description: The affected area was cleansed with an antiseptic solution. Using a sterile #15 blade, the hyperkeratotic tissue was radially debrided from the foot. All callused tissue was removed down to normal skin without causing bleeding or discomfort. The area was inspected for underlying ulceration or infection. Patient tolerated the procedure well. No complications noted. Tolerance: Patient tolerated procedure well, no immediate complications. 18360-Gyohvbdxlwa of Callus (5+) Procedure code (CPT) selection complete Assessment & Plan Assessment & Plan (1) Prasad's deformity of left heel: Code(s): M92.62 - Juvenile osteochondrosis of tarsus, left ankle Category: Medical Plan: * Rx left calc x-rays * Discussed shoe-wear modifications versus surgical treatment. (2) Tinea pedis: Code(s): B35.3 - Tinea pedis Category: Medical Qualifiers: Laterality: bilateral Qualified Code(s): B35.3 - Tinea pedis Plan: * Rx Clotrimazole (3) Tinea unguium: Code(s): B35.1 - Tinea unguium Category: Medical Plan: * Rx Ciclopirox (4) Callus of foot: Code(s): L84 - Corns and callosities Category: Medical Plan: * Debrided bilateral feet lesions using a #15 blade. * Rx Urea Cream * Follow up in 1 month Orders: Orders AMB Debridement/Avulsion Podiatry Today L84 - Corns and callosities XR calcaneus LT min 2V Today M92.60 - Juvenile osteochondrosis of tarsus, unspecified ankle Medications: New urea 40% Apply to calluses on bottom of feet 1 appl topical BID 28 grams 3RF L84 - Corns and callosities clotrimazole 1% (Antifungal (clotrimazole)) Apply to bottom of feet for athlete's foot. 1 appl topical BID 30 grams 3RF athlete's foot 4 weeks B35.3 - Tinea pedis ciclopirox 8% Apply to fungal toenails daily. Remove build-up at the end of the week. 1 appl topical BEDTIME 6.6 mL 2RF nail fungus 4 months B35.1 - Tinea unguium Coding Level of Care Code New Pt Level 4 (93426) Diagnoses Prasad's deformity of left heel M92.62 Tinea pedis of both feet B35.3 Laterality: bilateral Tinea unguium B35.1 Callus of foot L84 CPT Codes Skin Debridement - CPT: 08654-Rimfgshaanl of Callus (5+) ([id number]) Time Spent (min) 35
--- OUTSIDE RECORDS SUMMARY | 2025-08-23 13:33 | XMS_ITS | Encounter Summary ---
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 ad terminal makeup operator insulin use ([facility]) Social History Tobacco Use Types Packs/Day Years [...] 2 diabetes mellitus without complication, unspecified whether prison insulin use ([facility]) Expected: 01/18/2023 (Approximate), Expires: 12/19/2023 documented as of this encounter Procedures Procedure Name Priority Date/Time Associated Diagnosis Comments ALBUMIN, RANDOM URINE W/CREATININE Routine 11/14/2023 12:09 PM EST Mixed hyperlipidemia documented in this encounter Results * Albumin, Random Urine W/Creatinine (11/14/2023 12:09 PM EST) Creatinine, Urine 58.27 mg/dL [facility] Microalbumin Urine 10.0 mg/L [facility] Microalbum Creatinine Ratio Ur 17.1 <30 ug/mg cr [facility] Comment:Albumin/Creatinine R atio Reference Ranges: Normal: < 30 ug/mg creatinine Microalbuminuria: 30 - 300 ug/mg creatinineClinical Albuminuria: > 300 ug/mg creatinine 11/14/2023 12:0 9 PM EST 11/14/2023 1:19 PM EST us Kalpana Scanlon MD LAB URINE ORDERABLES Final Result Performing Organization Address City/State/[facility] Co de Phone Number [facility] [address] [place] [phone] documented in this encounter Visit Diagnoses Diagnosis Mixed hyperlipidemia- Primary Type 2 diabetes mellitus without complication, unspecified whether prison insulin use documented in this encounter Additional Health Concerns Assessment Noted Time PHQ-9 Depression Total Score: 8 11/01/19 23 10:25 AM EST documented as of this encounter Care Teams Clay Dry Press Helper Relationship Specialty Start Date End Date Josefina Aguillon FNP [address] [place] [address] PCP - General Family Medicine 09/03/22 07/30/23 Kalpana Shelby MD [address] [place] [address] PCP - General Internal Medicine 07/31/23 documented as of this encounter
--- OUTSIDE RECORDS SUMMARY | 2025-08-23 13:33 | XMS_ITS | Clinical Summary ---
Author Organization [employer] Address [address] [facility] [address] [place] [address] Care Team Providers Care Puncher And Fastener Name Role Phone Kalpana Shelby MD Primary [...] 2 diabetes mellitus without complication, unspecified whether ferry terminal agent insulin use Test blood sugar once daily as directed 100 each 3 11/14/19 23 Active glucose blood (OneTouch Verio) test stripIndication s:Type 2 diabetes mellitus without complication, unspecified whether fpc insulin use USE DIRECTED TO TEST BLOOD [...] 2 diabetes mellitus without complication, unspecified whether ferry terminal agent insulin use Take 1 tablet (500 mg) [...] Palpitations 08/16/2025 Coronary artery disease invo lving [place] coronary artery of [place] heart 10/26/2024 Erectile dysfunction 11/14/2023 Colon cancer [...] Description 08/16/2025 9:00 AM EST Office Visit [address] [address] Kalpana Shelby MD Cramps of left lower extremity (Primary Dx); Type 2 diabetes mellitus without complication, without long-term current use of insulin (HCC); Nocturia; Other fpc (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; Coronary artery disease involving [place] coronary artery of [place] heart, unspecified whether angina present; Chronic hepatitis C without hepatic coma (HCC); Dietary counseling; Exercise counseling; Overweight; Palpitations; Benign hypertension; Colon cancer screening; Encounter for immunization 08/16/2025 Orders Only [address] [address] Kalpana Shelby MD 08/16/2025 Travel 08/15/[address] [address] Kalpana Shelby MD Chart Prep 08/10/[address] [address] Kalpana Shelby MD Erectile dysfunction, unspecified erectile dysfunction type 08/09/2025 Orders Only [facility] External Provider, [facility] 07/08/[address] [address] Kalpana Shelby MD Erectile dysfunction, unspecified erectile dysfunction type 07/06/2025 Patient Outreach [address] [address] Kalpana Shelby MD Pre-visit Planning ((Unable to reach for PVP screening, LVM) to be completed in office ) from Last 3 Months Immunizations Immunization Administration [...] Colonoscopy 06/17/2023 06/17/2013 Colorectal Cancer Screening 06/17/2023 COVID-19 Vaccine ( season) 2025 Influenza Vaccine (#1) 2025 , 08/26/2019, 07/09/2018, Additional history exists Diabetes: Hemoglobin A1C 02/13/2026 025, 09/26/2023, 11/01/2022, Additional history exists Eye Exam 03/11/2026 03/11/2024, 02/12, 03/11/2024, Additional history exists Depression Screening 08/16/2026 08/16/2025, 08/16/20 Diabetes: Urine Protein Screening 08/16/2026 08/16/2025, 11/14/2023, 04/12/2022, Additional history exists Lipid Panel 08/16/2026 08/16/2025, 02/12, 09/26/2023, Additional history exists SDOH Screening 08/16/2026 08/16/2025 Tobacco Screening 08/16/2026 [...] Procedure Name Priority Date/Time Associated Diagnosis Comments HEPATITIS C VIRAL RNA, QUANTITATIVE, REAL-TIME PCR Routine 08/16/2025 10:16 AM EST ALBUMIN, RANDOM URINE W/CREATININE Routine 08/16/2025 10:16 AM EST Type 2 diabetes mellitus without complication, without long-term current use of insulin (HCC) VITAMIN D,25-OH,TOTAL,IA Routine 08/16/2025 10:16 AM EST Type 2 diabetes mellitus without complication, without long-term current use of insulin (HCC) Other ferry terminal agent (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 VITAMIN B12/FOLATE, SERUM PANEL Routine 08/16/2025 10:16 AM EST Cramps of left lower extremity TSH W/REFLEX TO FT4 Routine 08/16/2025 1 0:16 AM EST Cramps of left lower extremity LIPID PANEL, STANDARD Routine 08/16/2025 10:16 AM EST Type 2 diabetes mellitus without complication, without long-term current use of insulin (HCC) HEPATITIS C AB W/REFL TO HCV RNA, QN, PCR Routine 08/16/2025 10:16 AM EST Type 2 diabetes mellitus without complication, without long-term current use of insulin (HCC) COMPREHENSIVE METABOLIC PANEL Routine 08/16/2025 10:16 AM EST Type 2 diabetes mellitus without complication, without long-term current use of insulin (HCC) PSA, TOTAL WITH REFLEX TO PSA, FREE Routine 08/16/2025 10:16 AM EST Nocturia POCT GLYCATED HEMOGLOBIN, TOTAL Routine 08/16/2025 9:15 [...] 7:32 PM EDT Coronary artery disease involving [place] coronary artery of [place] heart, unspecified whether angina present COMPLETE BLOOD COUNT MAN DIF Routine 08/09/2025 7:32 PM EDT Coronary artery disease involving [place] coronary artery of [place] heart, unspecified whether angina present CBC WITH AUTO DIFFERENTIAL Routine 08/09/2025 7:32 PM EDT Coronary artery disease involving [place] coronary artery of [place] heart, unspecified whether angina present CREATINE KINASE, TOTAL Routine 7:32 PM EDT Coronary artery disease involving [place] coronary artery of [place] heart, unspecified whether angina present MAGNESIUM Routine 08/09/2025 7:32 PM EDT Coronary artery disease involving [place] coronary artery of [place] heart, unspecified whether angina present COMPREHENSIVE METABOLIC PANEL Routine 08/09/2025 7:32 PM EDT Coronary artery disease involving [place] coronary artery of [place] heart, unspecified whether angina present COVID-19 ID NOW (BRUNO) Routine 08/09/2025 7:32 PM EDT Coronary artery disease involving [place] coronary artery of [place] heart, unspecified whether angina present APTT Routine 08/09/2025 7:32 PM EDT Coronary artery disease involving [place] coronary artery of [place] heart, unspecified whether angina present PROTHROMBIN TIME-INR Routine 08/09/2025 7:32 PM EDT Coronary artery disease involving [place] coronary artery of [place] heart, unspecified whether angina present INFLUENZA A B2 ID NOW (BRUNO) Routine 08/09/2025 7:32 PM EDT Coronary artery disease involving [place] coronary artery of [place] heart, unspecified whether angina present HM COLONOSCOPY Routine 06/17/2013 2:17 PM EDT from Last 3 Months or Most Recently Relevant to Health Maintenance Results * Vitamin D, 25-Hydroxy, Total, Immunoassay (08/16/2025 10:16 AM EST) Vitamin D 25-OH Total 42.6 >30 ng/mL [facility] Comment: Health Based Reference Values*< 20 ng/mL Gpofddvqi30-19 ng/mL Insufficient> 30 ng/mL Sufficient*Adarsh DÍAZ. N Engl J Med. 2007;357:266-280There is no well-established upper level of normal vitamin Dlevels. Some laboratories use 50 ng/mL as an upper limit ofnormal. However, toxicity is patient-dependent and may occurat any level. Careful correlation with the patient'spresentation is necessary and, if there is concern forvitamin D toxicity, treatment should be consideredirrespective of the serum level.Care must be taken in interpreting Vitamin D results fromdifferent laboratories and methodologies. Published datademonstrated that results from patients undergoinghemodialysis may show a negative bias when tested withvarious automated 25-OH vitamin D assays when compared toLC-MS/MS.When testing samples from patients whose predominant form ofVitamin D is Vitamin D2, such as patients receiving VitaminD2 supplementation, results that are subtherapeutic shouldbe confirmed with another method such as LC-MS/MS. Blood Venous blood specimen / Unknown 08/16/2025 10:16 AM EST 08/16/2025 11:54 AM EST us Kalpana Scanlon MD LAB BLOOD ORDERABLES Final Result [facility] [address] [place] [phone] [phone] * Vitamin B12/Folate, Serum Panel (08/16/2025 10:16 AM EST) Vitamin B12 497 200 - 900 pg/mL [facility] Comment:NORMAL 200-900 PG/ML INDETERMINATE 160-199 PG/ML DEFICIENT < 160 PG/ML Folate 15.0 > or = 4.0 ng/mL [facility] Comment:Reference Values:> o r = 4.0 ng/mL< 4.0 ng/mL suggests folate deficiency Methotrexate, aminopterin and folinic acid(leucovorin) are chemotherapeutic agents whose molecularstructures are similar to folate; therefore, the Architectfolate assay cannot be used for patients using these drugs. Blood Venous blood specimen / Unknown 08/16/2025 10:16 AM EST 08/16/2025 11:54 AM EST Kalpana Scanlon MD LAB BLOOD ORDERABLES Final Result Performing Organization Address City/[facility]/ZIP Co de Phone Number [facility] [address] [place] [phone] * TSH with Reflex to Free T4 (08/16/2025 10:16 AM EST) TSH reflex Free T4 2.13 0.32 - 4.0 uIU/mL [facility] Blood Venous blood specimen / Unknown 08/16/2025 10:16 AM EST 08/16/2025 11:54 AM EST us Kalpana Scanlon MD LAB BLOOD ORDERABLES Final Result Performing Organization Address City/[facility] [[email or web address]] Co de Phone Number [facility] [address] [place] [phone] * PSA, Total With Reflex to PSA, Free (08/16/2025 10:16 AM EST) PSA,Total (Free>4and<10) 0.85 0.00 - 4.00 ng/mL [facility] Comment:A Free PSA was not p erformed: The percentage of Free PSA can be used to enhance the differentiation of prostate cancer from benign prostatic disease in subjects whose PSA levels are between 4.0 and 10.0 ng/mL. For subjects whose PSA levels are below 4.0 or above 10.0 ng/mL, the risk of prostate cancer is determined on the basis of the PSA alone. Therefore the % Free PSA is recommended only for those subjects whose PSA levels are between 4.0 and 10.0 ng/mL.PSA methodology: Bruno Alinity i ChemiluminescentMicroparticle Immunoassay (CMIA) 08/16/2025 10:1 6 AM EST 08/16/2025 11:54 AM EST Kalpana Scanlon MD LAB BLOOD ORDERABLES Final Result Performing Organization Address [facility] [[email or web address]] Co de Phone Number [facility] [address] [place] [phone] * Hepatitis C Viral RNA, Quantitative, Real-Time PCR (08/16/2025 10:16 AM EST) Hepatitis C Viral Load <15 NOT DETECTED NOT DETECTED IU/mL [facility] HCV Log PCR <1.18 NOT DETECTED NOT DETECTED Log IU/mL [facility] Comment:For additional infor lia, please refer [email or web address](This link is being provided for informational/educational purposes only.)THIS TEST WAS PERFORMED AT:[facility] [place] [phone] RONQUILLO MD 08/16/2025 10:1 6 AM EST 08/19/2025 9:17 AM EST Kalpana Scanlon MD LAB BLOOD ORDERABLES Final Result Performing Organization Address [facility] de Phone Number [facility] [address] [place] [phone] * (ABNORMAL) Albumin, Random Urine W/Creatinine (08/16/2025 10:16 AM EST) Creatinine, Urine 47.02 mg/dL [facility] Microalbumin Urine 18.0 mg/L [facility] Microalbum Creatinine Ratio Ur 38.2(H) <30 ug/mg cr [facility] Comment:Albumin/Creatinine R atio Reference Ranges: Normal: < 30 ug/mg creatinine Microalbuminuria: 30 - 300 ug/mg creatinineClinical Albuminuria: > 300 ug/mg creatinine Urine (Urine, Random) 08/16/2025 10:16 AM EST 08/16/2025 11:35 AM EST Kalpana Scanlon MD LAB URINE ORDERABLES Final Result Performing Organization Address [facility] [[email or web address]] Co de Phone Number [facility] [address] [place] [phone] * (ABNORMAL) Hepatitis C Antibody with Reflex to HCV, RNA, Quantitative, Real- Time PCR (08/16/2025 10:16 AM EST) Hepatitis C Antibody Reactive( A) Nonreactive [facility] Comment:Presumptive evidence of antibodies to HCV. Blood Venous blood specimen / Unknown 08/16/2025 10:16 AM EST 08/16/2025 11:54 AM EST us Kalpana Scanlon MD LAB BLOOD ORDERABLES Final Result Performing Organization Address [facility] [[email or web address]] Co de Phone Number [facility] [address] [place] [phone] * Lipid Panel, Standard (08/16/2025 10:16 AM EST) Triglycerides 122 <150 mg/dL [facility] Comment:Desirable Triglyceri de: less than 150 mg/dLBorderline High Triglyceride 150-199 mg/dLHigh Triglyceride: 200-499 mg/dLVery High Triglyceride: greater than or equal to 5OO mg/dL Cholesterol 147 <200 mg/dL [facility] Comment:Desirable Cholestero l: less than 200 mg/dLBorderline High Cholesterol: 200-239 mg/dLHigh Cholesterol: greater than 239 mg/dL LDL Cholesterol Calculated 73 <100 mg/dL [facility] Comment:Desirable LDL: less than 100 mg/dLNear Optimal/Above Optimal LDL: 110- 129 mg/dLBorderline High LDL: 130-159 mg/dLHigh LDL: 160-189 mg/dLVery High LDL: greater than or equal to 190 mg/dL HDL Cholesterol 50 >40 mg/dL [facility] Comment:Desirable HDL: great er than 40 mg/dL Note: This HDL assay may give artificially low results in patients with liver disease. Blood Venous blood specimen / Unknown 08/16/2025 10:16 AM EST 08/16/2025 11:54 AM EST us Kalpana Scanlon MD LAB BLOOD ORDERABLES Final Result [facility] [address] [place] [phone] * (ABNORMAL) Comprehensive Metabolic Panel (08/16/2025 10:16 AM EST) Only the most recent of2 resultswithin the time period is included. Sodium 137 135 - 145 mmol/L [facility] Potassium 4.6 3.3 - 5.1 mmol/L [facility] Chloride 103 96 - 108 mmol/L [facility] Carbon Dioxide 27 22 - 29 mmol/L [facility] Anion Gap 12 12 - 20 [facility] Urea Nitrogen (BUN) 11 9 - 16 mg/dL [facility] Creatinine, Serum 0.83 0.5 - 1.4 mg/dL [facility] Estimated Glomerular Filt Rate >60 [facility] Comment:Chronic Kidney Disea se: Estimated GFR < 60 mL/min/[id number] Kidney Disease: Estimated GFR < 15 mL/min/1.73m2 Glucose 105 60 - 115 mg/dL [facility] Calcium 9.2 8.4 - 10.2 mg/dL [facility] Bilirubin, Total 0.9 0.0 - 1.0 mg/dL [facility] Aspartate Amino Transferase 42(H) 5 - 37 U/L [facility] Alanine Aminotransferase 31 0 - 40 U/L [facility] Total Protein 7.8 6.5 - 8.0 g/dL [facility] Albumin Level 4.4 3.5 - 5.0 g/dL [facility] Alkaline Phosphatase 64 39 - 117 U/L [facility] Blood Venous blood specimen / Unknown 08/16/2025 10:16 AM EST 08/16/2025 11:54 AM EST Kalpana Scanlon MD LAB BLOOD ORDERABLES Final Result [facility] [address] [place] [phone] * POCT Hgb A1c (08/16/2025 9:15 AM EST) [facility] Hemoglobin A1C 5.7 4.0 - 5.7 % QC [employer] Lot # [id number] Lot# Expiration Date 51,227 Blood 08/16/2025 9:15 AM EST Kalpana Scanlon MD POINT OF CARE TEST EN TER/EDIT ORDERABLES Final Result * POCT Glucose (08/16/2025 9:15 AM EST) [facility] Glucose Blood, POC 100 60 - 200 mg/dL [employer] Lot # [id number] Lot# Expiration Date 31,126 Blood Capillary blood specimen / Unknown 08/16/2025 9:15 AM EST Kalpana Scanlon MD POINT OF CARE TEST EN TER/EDIT ORDERABLES Final Result * (ABNORMAL) High Sensitivity Troponin I (08/09/2025 9:36 PM EDT) Only the most recent of2 resultswithin the time period is included. [facility] TROPONIN I HIGH SENSITIVITY 82.3(H) <3.5 - 35.0 ng/L [facility] Comment:The Bruno high sens itivity Troponin-I results should beused in conjunction with other diagnostic information suchas ECG, clinical observations and information, and patientsymptoms to aid in the diagnosis of UT. 08/09/2025 9:36 PM EDT 08/09/2025 9:40 PM EDT Generic External Data Provider LAB BLOOD ORDERAB LES Final Result Performing Organization Address [facility] [[email or web address]] Co de Phone Number [facility] [address] [place] [phone] * Urinalysis w/reflex microscopic (08/09/2025 9:36 PM EDT) Color Urine Yellow [facility] Appearance Urine Clear [facility] PH 6.0 5.0 - 9.0 [facility] Glucose Urine UA Negative Negative mg/dL [facility] Urine Blood Negative Negative [facility] Specific [place] - Urine 1.010 1.005 - 1.025 [facility] Urine Protein Negative Neg-Trace mg/dL [facility] Urine Ketones Negative Negative mg/dL [facility] Nitrite Urine Negative Negative [facility] Leukocyte Esterase Urine Negative Negative [facility] 08/09/2025 9:36 PM EDT 08/09/2025 9:40 PM EDT Narrative [facility] - 08/09/2025 9:50 PM EDT Urine, Clean Catch us Generic External Data Provider LAB URINE ORDERAB LES Final Result Performing Organization Address [facility] [[email or web address]] Co de Phone Number [facility] [address] [place] [phone] * XR Thoracic Spine 3 Views (08/09/2025 8:25 PM EDT) Anatomical Region Laterality Modality Spine, T-spine Radiographic Glendy ging 08/09/2025 8:25 PM EDT Narrative 08/09/2025 8:26 PM EDT [address] [address] XRay Report Signed Patient: Jorge A Iqbal MR# : [id number] : 1955 Acct:[id number] Age/Sex: 69 / M ADM Date: 08/09/25 Loc: HO.ED Attending Dr: Ordering Physician: Jose Krause Date of Service: 08/09/25 Procedure(s): XR thoracic spine 3V Accession Number(s): [id number] cc: Jose Krause; Kalpana Shelby MD Reason [...] in OV> 08/09/252025 DD/ 24 TD/TT: 08/09/252024 Maintenance Data Analyst: Procedure Note Donotuseinterpreter, Image - 08/09/[address] [address] XRay Report Signed Patient: Kenzie IqbalR# : [id number] : [id number]:[id number] Age/Sex: 69 / MADM Date: 08/09/25 Loc: HO.ED Attending Dr: Ordering Physician: Jose Krause Date of Service: 08/09/25 Procedure(s): XR thoracic spine 3V Accession Number(s): [id number] cc: Jose Krause; Kalpana Shelby MD Reason [...] in OV> 08/09/252025 DD/ 24 TD/TT: 08/09/252024 Maintenance Data Analyst: [facility] External Provider IMG XR PROCEDURES Final Result * XR Chest 1 View (08/09/2025 8:24 PM EDT) Anatomical Region Laterality Modality Chest Radiographic Glendy ging 08/09/2025 8:24 PM EDT Narrative 08/09/2025 8:25 PM EDT [address] [address] XRay Report Signed Patient: Jorge A Iqbal MR# : [id number] : 1955 Acct:[id number] Age/Sex: 69 / M ADM Date: 08/09/25 Loc: HO.ED Attending Dr: Ordering Physician: Jose Krause Date of Service: 08/09/25 Procedure(s): XR chest 1V Accession Number(s): [id number] cc: Jose Krause; Kalpana Shelby MD Reason [...] in OV> 08/09/252024 DD/ 23 TD/TT: 08/09/252023 Maintenance Data Analyst: Procedure Note Donotuseinterpreter, Image - 08/09/[address] [address] XRay Report Signed Patient: Kenzie IqbalR# : [id number] : [id number]:[id number] Age/Sex: 69 / MADM Date: 08/09/25 Loc: HO.ED Attending Dr: Ordering Physician: Jose Krause Date of Service: 08/09/25 Procedure(s): XR chest 1V Accession Number(s): [id number] cc: Jose Krause; Kalpana Shelby MD Reason [...] in OV> 08/09/252024 DD/ 23 TD/TT: 08/09/252023 Maintenance Data Analyst: [facility] External Provider IMG XR PROCEDURES Final Result * Influenza A B2 ID NOW (Bruno) (08/09/2025 7:32 PM EDT) IDNOW SERIAL# [id number] [facility] Influenza A Negative Negative [facility] Influenza B2 Negative Negative [facility] Influenza A B2 Note See Note [facility] Comment:The Bruno ID NOW In [...] LAB MICROBIOLOGY - GENERAL ORDERABLES Final Result Performing Organization Address City/[facility]/ZIP Co de Phone Number [facility] [address] [place] [phone] [phone] * COVID-19 ID NOW (BRUNO) (08/09/2025 7:32 PM EDT) IDNOW SERIAL# [id number] [facility] COVID-19 TEST Negative Negative [facility] COVID-19 NOTE See Note [facility] Comment: Results are for the identification of SARS-CoV2 RNA. TheSARS-CoV2 RNA is generally detectable in respiratory samplesduring the acute phase of infection. Positive results areindicative of the presence of SARS-CoV-2 RNA; clinicalcorrelation with patient history and other diagnosticinformation is necessary to determine patient infectionstatus. Positive results do not rule out bacterial infectionor co- infection with other viruses.Testing facilities within the [facility] and itsterritories are required to report all positive results [...] LAB MOLECULAR ILEANA GNOSTICS ORDERABLES Final Result Performing Organization Address City/[facility]/ZIP Co de Phone Number [facility] [address] [place] [phone] * (ABNORMAL) Complete Blood Count Manual Diff (08/09/2025 7:32 PM EDT) White Blood Count 9.5 4.8 - 10.8 X10*3/uL [facility] Red Blood Count 4.62 4.60 - 5.80 X10*6/uL [facility] Hemoglobin 14.3 14.0 - 18.0 g/dl [facility] Hematocrit 42.3 42.0 - 52.0 % [facility] Mean Corpuscular Volume 91.6 80.0 - 98.0 fL [facility] Mean Corpuscular Hemoglobin 31.0 27.0 - 33.0 pg [facility] Mean Corpuscular HGB Conc 33.8 31.0 - 36.0 g/dl [facility] Red Cell Distribution Width 14.1 11.0 - 16.0 % [facility] Platelet Count 213 160 - 400 X10*3/uL [facility] Mean Platelet Volume 11.3 9.4 - 12.4 fL [facility] NRBC Pct Auto 0.0 0.0 - 0.2 /100WBC [facility] NRBC Abs Auto 0.000 0.0 - 0.012 X10*3/uL [facility] Neutrophils % Manual 69 45 - 73 % [facility] Band Neutrophils Percent 0(L) 3 - 5 % [facility] Lymphocytes Percent Manual 17(L) 20 - 40 % [facility] Monocytes Percent Manual 13(H) 2 - 11 % [facility] BASOPHILS % MANUAL 1 0 - 2 % [facility] NEUTROPHILS ABSOLUTE MANUAL 6.6 2.0 - 8.3 X10*3/uL [facility] LYMPHOCYTES ABSOLUTE MANUAL 1.6 1.2 - 4.9 X10*3/uL [facility] MONOCYTES ABSOLUTE MANUAL 1.2 0.1 - 1.2 X10*3/uL [facility] BASOPHILS ABSOLUTE MANUAL 0.1 0.0 - 0.2 X10*3/uL [facility] Platelet Estimate NORMAL NORMAL [facility] Platelet Morphology Comment NORMAL [facility] RBC Morphology NORMAL [facility] 08/09/2025 7:32 PM EDT 08/09/2025 7:36 PM EDT us Generic External Data Provider LAB BLOOD ORDERAB LES Final Result Performing Organization Address [facility] [[email or web address]] Co de Phone Number [facility] [address] [place] [phone] * Partial Thromboplastin Time, Activated (APTT) (08/09/2025 7:32 PM EDT) Partial Thromboplastin Time 27.1 26.7 - 34.1 SEC [facility] 08/09/2025 7:32 PM EDT 08/09/2025 7:36 PM EDT us Generic External Data Provider LAB BLOOD ORDERAB LES Final Result Performing Organization Address [facility] Phone Number [facility] [address] [place] [phone] * Prothrombin Time-INR (08/09/2025 7:32 PM EDT) Prothrombin Time 11.8 10.9 - 12.4 SEC [facility] INTERNATIONAL NORM RATIO 1.0 0.9 - 1.1 [facility] Comment:INTERNATIONAL NORMAL IZED RATIO (INR) [...] ORDERAB LES Final Result Performing Organization Address [facility] [facility] [[email or web address]] Co de Phone Number [facility] [address] [place] [phone] * Magnesium (08/09/2025 7:32 PM EDT) Magnesium 2.2 1.6 - 2.6 mg/dL [facility] 08/09/2025 7:32 PM EDT 08/09/2025 7:36 PM EDT us Generic External Data Provider LAB BLOOD ORDERAB LES Final Result Performing Organization Address City/[facility]/ZIP Co de Phone Number [facility] [address] [place] [address] [phone] * (ABNORMAL) Creatine Kinase, Total (08/09/2025 7:32 PM EDT) Creatine Kinase Total 394(H) 38 - 174 U/L [facility] 08/09/2025 7:32 PM EDT 08/09/2025 7:36 PM EDT Generic External Data Provider LAB BLOOD ORDERAB LES Final Result Performing Organization Address City/[facility] [[email or web address]] Co de Phone Number [facility] [address] [place] [phone] * Hm Colonoscopy (06/17/2013 2:17 PM EDT) Colonoscopy Normal Normal Narrative Cookie Lubin - 06/17/2013 2:17 PM EDT Recommended 10 year follow up ([facility] Historical Provider HEALTH MAINTENANCE Edited Result - Final from Last 3 Months or Most Recently Relevant to Health Maintenance Insurance [facility] STANDARD MEDICARE Care Teams Puncher And Fastener Relationship Specialty Start Date End Date Kalpana Shelby MD [address] [place] [phone] PCP - General Internal Medicine 07/31/23
--- OUTSIDE RECORDS SUMMARY | 2025-08-23 13:33 | XMS_ITS | Encounter Summary ---
Author Organization [employer] Address [address] [facility] 7t [place] [address] Care Team Providers Care It Generalist Name Role Phone Kalpana Shelby MD Primary Care Provide r Encounter Details Date Type Department Care Team ([facility] st Contact Info) Description 08/16/2025 Orders Only [facility] [address] [place] [address] Kalpana Shelby MD [address] [place] [address] Social History Tobacco Use Types Packs/Day Years [...] REAL-TIME PCR Routine 08/16/2025 10:16 AM EST documented in this encounter Results * Hepatitis C Viral RNA, Quantitative, Real-Time PCR (08/16/2025 10:16 AM EST) Hepatitis C Viral Load <15 NOT DETECTED NOT DETECTED IU/mL [facility] HCV Log PCR <1.18 NOT DETECTED NOT DETECTED Log IU/mL [facility] Comment:For additional infor lia, please refer tohttp://education.Lum[employer]igm/faq/XES29o8(This link is being provided for informational/educational purposes only.)THIS TEST WAS PERFORMED AT:[employer] [place] [phone] RONQUILLO MD 08/16/2025 10:1 6 AM EST 08/19/2025 9:17 AM EST us Kalpana Scanlon MD LAB BLOOD ORDERABLES Final Result [facility] [address] [place] [phone] documented in this encounter Visit Diagnoses Not on filedocumented in this encounter Additional Health Concerns Assessment Noted Time PHQ-9 Depression Total Score: 0 08/16/20 25 10:00 AM EST documented as of this encounter Care Teams It Generalist Relationship Specialty Start Date End Date Kalpana Shleby MD [address] [place] [phone] PCP - General Internal Medicine 07/31/23 documented as of this encounter
--- OUTSIDE RECORDS SUMMARY | 2025-08-23 13:33 | XMS_ITS | Encounter Summary ---
Author Organization [employer] Address [address] [place] [address] 7t [place] [address] Care Team Providers Care Cruise Counselor Name Role Phone Josefina Aguillon Primary Care Provider [phone] Kalpana Shelby MD Primary Care Provide r Encounter Details Date Type Department Care Team (Late st Contact Info) Description 03/26/[address] [facility] MEDICINE [address] [place] [address] Josefina Aguillon FNP [address] [place] [address] Social History Tobacco Use Types Packs/Day Years [...] PM EDT Recommended 10 year follow up ([facility]) us Historical Provider HEALTH MAINTENANCE Edited Result - Final documented in this encounter Visit Diagnoses Not on filedocumented in this encounter Additional Health Concerns Assessment Noted Time PHQ-9 Depression Total Score: 8 11/01/19 23 10:25 AM EST documented as of this encounter Care Teams Cruise Counselor Relationship Specialty Start Date End Date Josefina Aguillon FNP [address] [place], [place] [phone] PCP - General Family Medicine 09/03/22 07/30/23 Kalpana Shelby MD [address] [place], [place] [phone] PCP - General Internal Medicine 07/31/23 documented as of this encounter
--- OUTSIDE RECORDS SUMMARY | 2025-08-23 13:33 | XMS_ITS | Encounter Summary ---
Author Organization [employer] Address [address] [facility] 7t [place] [address] Care Team Providers Care Director Of Pediatric Rehabilitation Name Role Phone Kalpana Shelby MD Primary Care Provide r Reason for Visit * Reason Onset Date Comments Med Refill 09/30/2024 Encounter Details Date Type Department Care Team ([facility] st Contact Info) Description 09/30/2024 Telephone [facility] MEDICINE [address] [place] [address] Kalpana Shelby MD [address] [place] [address] Med Refill Social History Tobacco Use Types [...] 50 MG tablet To be sent to: [facility] - [place], [place] - [address] [place] [address] documented in this encounter Plan of Treatment Not on file documented as of this encounter Visit Diagnoses Not on filedocumented in this encounter Additional Health Concerns Assessment Noted Time PHQ-9 Depression Total Score: 0 11/14/19 24 10:54 AM EST documented as of this encounter Care Teams Director Of Pediatric Rehabilitation Relationship Specialty Start Date End Date Kalpana Shelby MD [address] [facility] [place] [address] PCP - General Internal Medicine 07/31/23 documented as of this encounter
== END 2025-08-23 11:58 | disposition home or self-care (01) ==
LOC: HO.HPODS 11:24
PROVIDERS: PCP Internal Medicine; Visit Provider Student in an Organized Health Care Education/Training Program
DX: M92.62 Juvenile osteochondrosis of tarsus, left ankle (principal); B35.3 Tinea pedis; B35.1 Tinea unguium; L84 Corns and callosities; E11.9 Type 2 diabetes mellitus without complications
CPT/HCPCS: 11057; 99204

== ENCOUNTER 2025-08-23 11:24 | Outpatient (REF) | payer MEDICARE, MEDICAID, SELFPAY ==
--- NOTE | ~2025-08-23 | XR_ITS ---
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 COMPARISON: None available. TECHNIQUE: Lateral and axial views of the left calcaneus were obtained. FINDINGS: No evidence of acute fracture or malalignment. No erosions. Moderate posterior calcaneal enthesopathy. Moderate plantar calcaneal spur. Dorsal talar neck spurring. Vascular calcifications. XR/XR calcaneus LT min 2V IMPRESSION: 1. Moderate posterior calcaneal enthesopathy. 2. Moderate plantar calcaneal spur. Electronically signed by: Mathew Clark MD 08/24/2025 07:56 AM TITA
== END 2025-08-23 11:25 | disposition home or self-care (01) ==
LOC: HO.XRAY 11:24
PROVIDERS: PCP Internal Medicine; Visit Provider Student in an Organized Health Care Education/Training Program
DX: M92.62 Juvenile osteochondrosis of tarsus, left ankle (principal); B35.3 Tinea pedis; B35.1 Tinea unguium; L84 Corns and callosities
CPT/HCPCS: 11057; 73650; 99202

== ENCOUNTER → 2025-08-23 12:28 | Outpatient (BNV) | payer MEDICARE, MEDICAID, SELFPAY | PROVIDERS: PCP Internal Medicine; Visit Provider Radiology Diagnostic Ultrasound | DX: M77.32 Calcaneal spur, left foot (principal) | CPT/HCPCS: 73650 ==

== ENCOUNTER 2025-10-12 07:38 | Emergency (ER) | payer MEDICARE, MEDICAID, SELFPAY ==
--- NOTE | ~2025-10-12 | XR_ITS ---
EXAMINATION: XR LUMBOSACRAL SPINE CLINICAL INFORMATION: pain COMPARISON: 06/02/2018. TECHNIQUE: Three views of the lumbosacral spine. FINDINGS: There is a minimal levoconvex scoliosis, apex at L4. There is straightening of the normal lordosis. There is no significant subluxation in the sagittal plane. There is no fracture, compression deformity, or suspicious bone lesion. Severe disc degeneration is present L3-S1. Sclerosis of the endplates at L4-5 and L5-S1 with disc vacuum phenomenon present. Mild disc vacuum phenomenon also present at T12-L1, L1-L2, and L2-L3. Bulky ventral disc and vertebral osteophytes throughout the lumbar spine. There is normal facet alignment. There is multilevel degenerative hypertrophic facet change, most notable L3-S1. Soft tissues demonstrate vascular calcifications. XR/XR lumbar spine 2-3V IMPRESSION: 1. No radiographically acute findings of the lumbar spine. 2. Minimal levoconvex scoliosis, and moderate to severe multilevel spondylosis. There has been little change since 2018. Electronically signed by: Jorge Robledo MD 10/12/2025 10:48 AM [facility]
--- NOTE | ~2025-10-12 | XR_ITS ---
EXAMINATION: XR SACROILIAC JOINTS CLINICAL INFORMATION: pain COMPARISON: None available. TECHNIQUE: 3 views of the sacroiliac joints FINDINGS: No fracture or dislocation. No bone lesion. Mild to moderate degenerative changes in both SI joints. The sacrum appears intact. Advanced degenerative spondylosis in the lower lumbar spine. Mild degenerative changes in both hip joints. No acute soft tissue abnormality. There are vascular calcifications. XR/XR sacroiliac joint 1-2V IMPRESSION: No acute bony or soft tissue abnormalities. Electronically signed by: Jorge Robledo MD 10/12/2025 10:50 AM TITA
[2025-10-12 07:46] VITALS: BP 117/64; PULSE 81; RESP 16; TEMP 36.1; O2SAT 99; BMI 29.3
--- NOTE | 2025-10-12 08:25 | ED_ITS ---
HPI - Back Pain/Injury General Chief Complaint: Back Pain/Injury Stated Complaint: lower L sided back pain Time Seen by Provider: 10/12/25 08:22 Source: patient, RN notes reviewed, old records reviewed and surgery specialist Mode of arrival: ambulatory Limitations: language barrier ( Cook Islander-speaking) History of Present Illness ED Provider: ABRAHAM Coyne HPI Narrative: 69-year-old male with medical history of HLD, HTN, CAD, NSTEMI s/p cardiac catheterization w stent placement 2020, T2DM, presents to the ED due to 3 weeks of L sided lumbar back pain that is gradually worsening with intermittent tingling of the posterior thigh. Patient describes the pain as a constant strong sharp sensation and is worse when sitting and driving in his car and with position changes. Denies recent fall/injury or increased physical activity. Patient states he has had muscle spasm in the past and this feels similar, has taken A dose of Robaxin last night with minimal relief, has not been consiste nt with advil/tylenol. Patient has not taken any medication today for pain relief. Denies saddle paresthesias, bowel/bladder incontinence, history of IVDU, fevers, chillschest pain, shortness of breath, difficulty breathing, abdominal pain, nausea, vomiting, diarrhea, black/ tarry stool, urinary symptoms Related Data Home Medications ?Medication ?Instructions ?Recorded ?Confirmed metformin 500 mg tablet 500 mg PO 11/01/20 10/08/23 Previous Rx's ?Medication ?Instructions ?Recorded ibuprofen 600 mg tablet 600 mg PO Q8H PRN pain #20 t abs 10/08/22 atorvastatin 40 mg tablet 40 mg PO DAILY #30 tabs 10/13 05/05 enalapril maleate 20 mg tablet 20 mg PO BID #60 tabs 0 10/29/23 ezetimibe 10 mg tablet 10 mg PO DAILY #60 tabs 10/13 05/05 aspirin 81 mg tablet,delayed 81 mg PO DAILY 90 days #3 0 tabs 11/29/24 release (Adult Low Dose Aspirin) metoprolol succinate 50 mg 50 mg PO DAILY 30 days #30 tabs 12/28/24 tablet,extended release 24 hr methocarbamol 750 mg tablet 750 mg PO Q8H PRN muscle s pasm #10 08/09/25 tabs ciclopirox 8 % topical solution 1 appl topical BEDTIME nail fungus 08/23/25 4 months #6.6 mL clotrimazole 1 % topical cream 1 appl topical BID athl ete's foot 08/23/25 (Antifungal (clotrimazole)) 4 weeks #30 grams urea 40 % topical cream 1 appl topical BID #28 grams 08/23/25 amlodipine 10 mg tablet 10 mg PO DAILY #30 tabs 08/14 11/06 cyclobenzaprine 5 mg tablet 5 mg PO TID PRN muscle spa sm 3 10/12/25 days #9 tabs Allergies Allergy/AdvReac Type Severity Reaction Status Date / Time No Known Allergies Allergy Verified 10/12/25 07:50 Review of Systems Review of Systems: Yes all other systems are reviewed and are negative PMFSH Past Medical History Attestation statement: The following information was validated with the patient. Source: old records reviewed and nursing notes reviewed Medical History Bleeding hemorrhoids Hyperlipidemia CAD (coronary artery disease) Hypertension Diabetes Surgical History Hx of colonoscopy (~2012) S/P cardiac catheterization (~10/2020) Family History Family History Mother Diabetes Hypertension Heart problem Father No problems noted. Social History Social History Alcohol intake: current Alcohol intake frequency: holidays/special occasions only Alcohol type: beer Patient Tobacco Use Status: Former Tobacco user Tobacco use type: Cigarette Years Smoked: 4 Advance Directives: No Advance Directives Information Provided: Yes Physical Exam Vital Signs: Vital Signs: Last Vital Signs Temp 97.0 F 10/12/25 07:46 Pulse 81 10/12/25 07:46 Resp 16 10/12/25 07:46 BP 117/64 10/12/25 07:46 Pulse Ox 99 10/12/25 07:46 O2 Del Method Room Air 10/12/25 07:46 BMI result Body Mass Index 29.3 GENERAL APPEARANCE: ?AxOx4, generally well-appearing, no acute distress. HEENT: ?NC, AT. MMM. EOMI, clear conjunctiva, oropharynx clear. NECK: ?Supple without lymphadenopathy.? No stiffness or restricted ROM. HEART:? Normal rate and regular rhythm, normal S1/S2, no m/r/g LUNGS:? CTAB, moving air well. ABDOMEN: ?Soft, nontender, nondistended with good bowel sounds heard. BACK: No CVAT, TTP of L sided lumbar paraspinal muscles into the left-sided SI joint, no midline spinal tenderness, no bony step-offs palpated, ROM is intact as patient is able to perform extension, flexion, lateral bending but does have pain with these movements, patient is ambulating without ataxia, antalgic gait or significant pain, positive left-sided straight leg test EXTREMITIES: ?Without cyanosis, clubbing or edema. NEUROLOGICAL: ?Grossly nonfocal. Alert and oriented, moving all 4 extremities. Observed to ambulate with normal gait. Skin: ?Warm and dry without any rash. Medical Decision Making Medical Decision Making MDM Narrative: 69-year-old male with medical history of HLD, HTN, CAD, NSTEMI s/p cardiac catheterization w stent placement 2020, T2DM, presents to the ED due to 3 weeks of strong pinching L sided lumbar back pain that is gradually worsening with intermittent tingling of the posterior thigh. Took a dose of methocarbamol last night without relief. Has not been consistent with Tylenol and ibuprofen for pain management. denies saddle paresthesias, bowel/bladder incontinence, injury/trauma, urinary symptoms VS on initial observation- BP 117/64, pulse rate of 81, respiratory rate of 16, afebrile with oral temp of 97.0?, O2 saturation 99% on room air. On physical exam patient is well-appearing, nontoxic appearing in no acute distress, lungs clear to auscultation bilaterally without wheeze or rhonchi, cardiac exam reveals normal rate and rhythm without murmurs/rubs/gallops, abdomen is soft, nontender, nondistended, patient is TTP of left-sided lumbar paraspinal muscles without midline spinal tenderness, no bony step-offs palpated, no anatomical abnormalities observed, no overlying skin changes, ecchymosis, ROM is intact as patient is able to perform flexion, extension, lateral bending and can ambulate without ataxic / antalgic gait, no history of IVDU this is less likely SEA, discitis, cauda equina, or fracture. Patient with tenderness of the L sided lumbar paraspinal muscles is most likely a muscle spasm/ lumbar raiculopathy. no indication for imaging at this time. UA ordered from triage and reveals 1+ urine protein, trace leukocyte esterase, 0-2 urine RBCs, 0-5 urine WBCs, 0-2 squamous epithelial cells, without urine bacteria, patient without urinary symptoms, no indication for antibiotics at this time. Course: 10:00- While discussing medicating the patient with Im toradol and tylenol for pain management patient was asking why I was not obtaining XR images. I attempted to educate the patient and explained my reasoning including no red flag symptoms such as fevers, chills, saddle paresthesias, bowel/ bladder incontinence, no midline spinal tenderness, no bony step-offs or ecchymosis of the area, ROM is completely intact and patient is able to perform flexion, extension, lateral bending, and ambulate with pain, but no concerning difficulty, no injury or trauma to the area. However, patient is adamant about obtaining xray imaging. Patient is being medicated with 15mg IM toradol, 975mg po tylenol and awaiting XR imaging of the lumbar spine. 11:02- XR imaging of the lumbar spine and SI joint Reveal degenerative changes without acute fracture or emergent findings. Patient is being discharged with instructions to treat his back pain with Tylenol and ibuprofen and 3 day course of flexeril for muscle spasm. I instructed patient to follow up with his primary care doctor as he may need physical therapy referral for management. Differential Diagnosis Differential Diagnoses: The differential diagnosis associated with the presentation includes Cauda equina Discitis SEA Lumbar radiculopathy Lumbar strain Admission/Observation Consideration of admission/observation: Escalation of care including admission/observation considered Lab Data MDM Lab Attestation statement: I reviewed the patient's lab results. Labs: Lab Results 10/12/25 Range/Units 08:45 Urine Color Yellow Urine Appearance Clear Urine pH 7.5 (5.0-9.0) Ur Specific [place] 1.020 (1.005-1.025) Urine Protein 30 (1+) H (Neg-Trace) mg/dL Urine Glucose (UA) Negative (Negative) mg/dL Urine Ketones Trace (Negative) mg/dL Urine Blood Negative (Negative) Urine Nitrite Negative (Negative) Ur Leukocyte Esterase Trace H (Negative) Urine RBC 0-2 (0-2) /HPF Urine WBC 0-5 (0-5) /HPF Ur Squamous Epith Cells 0-2 (0-2) /HPF Urine Bacteria None Seen (None Seen) Hyaline Casts 0-2 (0-2) /LPF Independent Interpretation I performed an independent interpretation of an: Plain X-Ray Interpretation: I personally interpreted the XR lumbar spine which was negative for acute fracture, does show degenerative changes, I agree with the radiologist's interpretation I personally interpreted the XR sacroiliac joint which was negative for acute fracture, does show degenerative changes, I agree with the radiologist's interpretation Radiology Impression Discussion of test interpretation with radiology: I have reviewed the radiologist's reading. Radiologist Impression: XR lumbar spine FINDINGS: There is a minimal levoconvex scoliosis, apex at L4. There is straightening of the normal lordosis. There is no significant subluxation in the sagittal plane. There is no fracture, compression deformity, or suspicious bone lesion. Severe disc degeneration is present L3-S1. Sclerosis of the endplates at L4-5 and L5-S1 with disc vacuum phenomenon present. Mild disc vacuum phenomenon also present at T12-L1, L1-L2, and L2-L3. Bulky ventral disc and vertebral osteophytes throughout the lumbar spine. There is normal facet alignment. There is multilevel degenerative hypertrophic facet change, most notable L3-S1. Soft tissues demonstrate vascular calcifications. XR/XR lumbar spine 2-3V IMPRESSION: 1. No radiographically acute findings of the lumbar spine. 2. Minimal levoconvex scoliosis, and moderate to severe multilevel spondylosis. There has been little change since 2018. Electronically signed by: Jorge Robledo MD 10/12/2025 10:48 AM EST Dictated By: Jorge Robledo MD Signed By: <Electronically signed by Jorge Robledo MD in OV> 10/12/25 1048 XR SI joint FINDINGS: No fracture or dislocation. No bone lesion. Mild to moderate degenerative changes in both SI joints. The sacrum appears intact. Advanced degenerative spondylosis in the lower lumbar spine. Mild degenerative changes in both hip joints. No acute soft tissue abnormality. There are vascular calcifications. XR/XR sacroiliac joint 1-2V IMPRESSION: No acute bony or soft tissue abnormalities. Electronically signed by: Jorge Robledo MD 10/12/2025 10:50 AM EST Dictated By: Jorge Robledo MD Signed By: <Electronically signed by Jorge Robledo MD in OV> 10/12/25 1050 External Record Review External record reviewed: Inpatient record, Office record, Outpatient record and Prior outpatient labs Chronic Conditions Patient?s care impacted by: Diabetes and Other ( CAD, HLD, NSTEMI, s/p cardiac catheterization with stent placement in 2020) Discharge Plan Discharge Clinical Impression: Lumbar back pain Patient Disposition: Home, Self-Care Additional Instructions: You were evaluated today for lower back spasms. Your X-rays were negative, and your physical exam was reassuring, with no signs of a serious underlying condition. This is consistent with a muscle strain or spasm, which typically improves with time and conservative care. Medications: * Acetaminophen (Tylenol) 500 mg every 6 hours as needed for pain * Ibuprofen 400 mg every 6 hours as needed for pain * These medications may be taken together or alternated. * Do not exceed recommended daily doses. * Take ibuprofen with food to reduce stomach irritation. * Flexeril (Cyclobenzaprine) * Take Flexeril (cyclobenzaprine) exactly as prescribed. * This medication is used to help relieve muscle spasms. Important Safety Information: * Flexeril can cause drowsiness, dizziness, and fatigue. * Do NOT drive, operate heavy machinery, or drink alcohol while taking this medication. * Use caution when standing up, as it may cause lightheadedness. How to Take: * Take with or without food. * If it causes stomach upset, take it with food. * Take the lowest effective dose for the shortest duration needed. Activity & Self-Care: * Continue gentle activity as tolerated; avoid prolonged bed rest. * Avoid heavy lifting, bending, or twisting until symptoms improve. * Use heat or ice to the lower back for 15?20 minutes at a time, several times daily. * Gentle stretching may help once pain begins to improve. Follow-Up: * Follow up with your primary care provider within the next few days. * You may require physical therapy if symptoms persist or recur. Return to the Emergency Department immediately if you develop: * Worsening or severe pain not controlled with medication * New numbness, tingling, or weakness in the legs * Loss of bowel or bladder control * Fever, unexplained weight loss, or night sweats * Pain following significant trauma Prescriptions: New cyclobenzaprine 5 mg tablet 5 mg PO TID PRN (Reason: muscle spasm) 3 Days Qty: 9 0RF No Action atorvastatin 40 mg tablet 40 mg PO DAILY Qty: 30 5RF enalapril maleate 20 mg tablet 20 mg PO BID Qty: 60 5RF ezetimibe 10 mg tablet 10 mg PO DAILY Qty: 60 5RF aspirin [Adult Low Dose Aspirin] 81 mg tablet,delayed release (DR/EC) 81 mg PO DAILY 90 Days Qty: 30 5RF metoprolol succinate 50 mg tablet extended release 24 hr 50 mg PO DAILY 30 Days Qty: 30 5RF amlodipine 10 mg tablet 10 mg PO DAILY Qty: 30 0RF Rx Instructions: Needs appointment [phone] ibuprofen 600 mg tablet 600 mg PO Q8H PRN (Reason: pain) Qty: 20 0RF methocarbamol 750 mg tablet 750 mg PO Q8H PRN (Reason: muscle spasm) Qty: 10 0RF metformin 500 mg tablet 500 mg PO urea 40 % cream 1 appl topical BID Qty: 28 3RF Rx Instructions: Apply to calluses on bottom of feet clotrimazole [Antifungal (clotrimazole)] 1 % cream 1 appl topical BID 28 Days Qty: 30 3RF Rx Instructions: Apply to bottom of feet for athlete's foot. ciclopirox 8 % solution 1 appl topical BEDTIME 120 Days Qty: 6.6 2RF Rx Instructions: Apply to fungal toenails daily. Remove build-up at the end of the week. Print Language: Cook Islander
[2025-10-12 08:54] LABS: Appearance Urine Clear; Glucose Urine UA Negative (Negative); PH 7.5 (5.0-9.0); Specific Gravity - Urine 1.020 (1.005-1.025); UMIC TRIGGER UACC YES
--- NOTE | 2025-10-12 10:09 | PC.NURSE ---
X-rays ordered. Urine specimen unremarkable. Care ongoing by this RN.
--- OUTSIDE RECORDS SUMMARY | 2025-10-12 10:19 | XMS_ITS | Encounter Summary ---
Author Organization [employer] Address [address] [place] [address] [address] [place] [address] Care Team Providers Care Welding Machine Tender Name Role Phone Josefina Aguillon Primary Care Provider [phone] Kalpana Shelby MD Primary Care Provide r Encounter Details Date Type Department Care Team (Late st Contact Info) Description 03/26/2023 Abstract [facility] MEDICINE [address] [place] [address] Josefina Aguillon FNP [address] [place] [address] Social History Tobacco Use Types Packs/Day Years [...] PM EDT Recommended 10 year [place] Historical Provider HEALTH MAINTENANCE Edited Result - Final documented in this encounter Visit Diagnoses Not on filedocumented in this encounter Additional Health Concerns Assessment Noted Time PHQ-9 Depression Total Score: 8 11/01/19 23 10:25 AM EST documented as of this encounter Care Teams Welding Machine Tender Relationship Specialty Start Date End Date Josefina Aguillon FNP [address] [place], [place] [phone] PCP - General Family Medicine 09/03/22 07/30/23 Kalpana Shelby MD [address] [place], [place] [phone] PCP - General Internal Medicine 07/31/23 documented as of this encounter
--- OUTSIDE RECORDS SUMMARY | 2025-10-12 10:19 | XMS_ITS | Encounter Summary ---
Author Organization [employer] Address [address] [place] [address] 7[address] [place] [address] Care Team Providers Care Radio News Anchor Name Role Phone Josefina Aguillon Primary Care Provider [phone] Kalpana Shelby MD Primary Care Provide r Encounter Details Date Type Department Care Team (Late st Contact Info) Description 12/18/2022 Orders Only [facility] [address] [place] [address] Josefina Aguillon FNP [address] [place] [address] Mixed hyperlipidemia (Primary Dx); Type 2 diabetes mellitus without complication, unspecified whether terminologist insulin use ([facility]) Social History Tobacco Use Types Packs/Day [...] 2 diabetes mellitus without complication, unspecified whether alf insulin use ([facility]/H[facility]) Expected: 01/18/2023 (Approximate), Expires: 12/19/2023 documented as of this encounter Procedures Procedure Name Priority Date/Time Associated Diagnosis Comments ALBUMIN, RANDOM URINE W/CREATININE Routine 11/14/2023 12:09 PM EST Mixed hyperlipidemia documented in this encounter Results * Albumin, Random Urine W/Creatinine (11/14/2023 12:09 PM EST) Creatinine, Urine 58.27 mg/dL [facility] Microalbumin Urine 10.0 mg/L [facility] Microalbum Creatinine Ratio Ur 17.1 <30 ug/mg cr [facility] Comment:Albumin/Creatinine R atio Reference Ranges: Normal: < 30 ug/mg creatinine Microalbuminuria: 30 - 300 ug/mg creatinineClinical Albuminuria: > 300 ug/mg creatinine 11/14/2023 12:0 9 PM EST 11/14/2023 1:19 PM EST us Kalpana Scanlon MD LAB URINE ORDERABLES Final Result Performing Organization Address City/State/[facility] Co de Phone Number [facility] [address] [place] [phone] documented in this encounter Visit Diagnoses Diagnosis Mixed hyperlipidemia- Primary Type 2 diabetes mellitus without complication, unspecified whether alf insulin use documented in this encounter Additional Health Concerns Assessment Noted Time PHQ-9 Depression Total Score: 8 11/01/19 23 10:25 AM EST documented as of this encounter Care Teams Radio News Anchor Relationship Specialty Start Date End Date Josefina Aguillon FNP [address] [place] [address] PCP - General Family Medicine 09/03/22 07/30/23 Kalpana Shelby MD [address] [place] [address] PCP - General Internal Medicine 07/31/23 documented as of this encounter
--- OUTSIDE RECORDS SUMMARY | 2025-10-12 10:19 | XMS_ITS | Encounter Summary ---
Author Organization [employer] Address [address] [facility] [address]t [place] [address] Care Team Providers Care Air Compressor Operator Name Role Phone Kalpana Shelby MD Primary Care Provide r Encounter Details Date Type Department Care Team ([facility] st Contact Info) Description 08/26/2025 Orders Only [facility] [address] [place] [address] Kalpana Shelby MD [address] [place] [address] Social History Tobacco Use Types Packs/Day Years [...] on file documented as of this encounter Goals Goal Patient Goal Type Associated Problems Recent Progress Patient-Stated? Author Help patients manage their type 2 diabetes Care Plan Help patients manage their type 2 diabetes No Kalpana Shelby MD Weekly blood pressure task Care Plan Weekly blood pressure task No Kalpana Shelby MD Help patients manage their type 2 diabetes Care Plan Help patients manage their type 2 diabetes No Kalpana Shelby MD Patient has chronic kidney disease Care Plan Patient has chronic kidney disease No Kalpana Shelby MD Weekly blood pressure task Care Plan Weekly blood pressure task No Kalpana Shelby MD Patient has chronic kidney disease Care Plan Patient has chronic kidney disease No Kalpana Shelby MD documented as of this encounter Visit Diagnoses Not on filedocumented in this encounter Additional Health Concerns Active Problems Noted Date Diagnosed Date Help patients manage their type 2 diabetes 08/26 Weekly blood pressure task 08/26/2025 Help patients manage their type 2 diabetes 08/26 Patient has chronic kidney disease 08/26/2025 Weekly blood pressure task 08/26/2025 Patient has chronic kidney disease 08/26/2025 Assessment Noted Time PHQ-9 Depression Total Score: 0 08/16/20 25 10:00 AM EST documented as of this encounter Care Teams Air Compressor Operator Relationship Specialty Start Date End Date Kalpana Shelby MD [address] [place] [address] [phone] PCP - General Internal Medicine 07/31/23 documented as of this encounter
--- OUTSIDE RECORDS SUMMARY | 2025-10-12 10:19 | XMS_ITS | Encounter Summary ---
Author Organization [employer] Address [address] [facility] [address]t [place] [address] Care Team Providers Care Rail Loader Name Role Phone Kalpana Shelby MD Primary Care Provide r Encounter Details Date Type Department Care Team (Late st Contact Info) Description 10/12/2025 Orders Only [facility] EXTERNAL DATA DEPARTMENT Provider, Generic External Data Social History Tobacco Use Types Packs/Day Years [...] Care Plan Weekly blood pressure task No Zahra Bashir LPN Weekly blood pressure task Care Plan Weekly blood pressure task No Zahra Bashir LPN Patient has chronic kidney disease Care Plan Patient has chronic kidney disease No Zahra Bashir LPN Patient has chronic kidney disease Care Plan Patient has chronic kidney disease No Zahra Bashir LPN documented as of this encounter Procedures Procedure Name Priority Date/Time Associated Diagnosis Comments URINALYSIS, COMPLETE, WITH REFLEX TO CULTURE Routine 10/12/2025 8:45 AM EST documented in this encounter Results * (ABNORMAL) Urinalysis, Complete, with Reflex to Culture (10/12/2025 8:45 AM EST) Color Urine Yellow [facility] Appearance Urine Clear [facility] PH 7.5 5.0 - 9.0 [facility] Glucose Urine UA Negative Negative mg/dL [facility] Urine Blood Negative Negative [facility] Specific [place] - Urine 1.020 1.005 - 1.025 [facility] Urine Protein 30 (1+)(A) Neg-Trace mg/dL [facility] Urine Ketones Trace Negative mg/dL [facility] Nitrite Urine Negative Negative [facility] Leukocyte Esterase Urine Trace(A) Negative [facility] RBC Urine 0-2 0 - 2 /HPF [facility] Urine WBC 0-5 0 - 5 /HPF [facility] Urine Squamous Epithelial Cell 0-2 0 - 2 /HPF [facility] Urine Bacteria None Seen None Seen [facility] Hyaline Casts, Urine 0-2 0 - 2 /LPF [facility] 10/12/2025 8:45 AM EST 10/12/2025 8:47 AM EST Narrative [facility] - 10/12/2025 9:03 AM EST [id number], Clean Catch us Generic External Data Provider LAB URINE ORDERAB LES Final Result Performing Organization Address City/State/[facility] Co de Phone Number [facility] [address] [place] [phone] documented in this encounter Visit Diagnoses Not on filedocumented in this encounter Additional Health Concerns Active Problems Noted Date Diagnosed Date Help patients manage their type 2 diabetes 08/26 Weekly blood pressure task 08/26/2025 Help patients manage their type 2 diabetes 08/26 Patient has chronic kidney disease 08/26/2025 Weekly blood pressure task 08/26/2025 Patient has chronic kidney disease 08/26/2025 Weekly blood pressure task 09/22/2025 Weekly blood pressure task 09/22/2025 Patient has chronic kidney disease 09/22/2025 Patient has chronic kidney disease 09/22/2025 Assessment Noted Time PHQ-9 Depression Total Score: 0 08/16/20 25 10:00 AM EST documented as of this encounter Care Teams Rail Loader Relationship Specialty Start Date End Date Kalpana Shelby MD [address] [place] [phone] PCP - General Internal Medicine 07/31/23 documented as of this encounter
--- OUTSIDE RECORDS SUMMARY | 2025-10-12 10:19 | XMS_ITS | Encounter Summary ---
Author Organization [employer] Address [address] [facility] [address] [place] [address] Care Team Providers Care Technical Documentation Specialist Name Role Phone Kalpana Shelby MD Primary Care Provide r Reason for Visit * Reason Onset Date Comments Med Refill 09/30/2024 Encounter Details Date Type Department Care Team ([facility] st Contact Info) Description 09/30/2024 Telephone [facility] [address] [place], [place] [phone] Kalpana Shelby MD [address] [place] [address] Med Refill Social History Tobacco Use Types [...] 50 MG tablet To be sent to: [facility] - [place], [place] - [address] [place] [address] documented in this encounter Plan of Treatment Not on file documented as of this encounter Visit Diagnoses Not on filedocumented in this encounter Additional Health Concerns Assessment Noted Time PHQ-9 Depression Total Score: 0 11/14/19 24 10:54 AM EST documented as of this encounter Care Teams Technical Documentation Specialist Relationship Specialty Start Date End Date Kalpana Shelby MD [address] [facility] [place] [address] PCP - General Internal Medicine 07/31/23 documented as of this encounter
--- OUTSIDE RECORDS SUMMARY | 2025-10-12 10:19 | XMS_ITS | Clinical Summary ---
Author Organization [employer] Address [address] [facility] [address] [place] [address] Care Team Providers Care Food Tray Assembler Name Role Phone Kalpana Shelby MD Primary [...] 2 diabetes mellitus without complication, unspecified whether intermediate designer insulin use Test blood sugar once daily as directed 100 each 3 11/14/19 23 Active glucose blood (OneTouch Verio) test stripIndication s:Type 2 diabetes mellitus without complication, unspecified whether penitentiary insulin use USE DIRECTED TO TEST BLOOD [...] 2 diabetes mellitus without complication, unspecified whether intermediate designer insulin use Take 1 tablet (500 mg) by mouth with evening meal. Do not crush, chew, or split.TAKE 1 TABLET BY MOUTH EVERY EVENING WITH DINNER DO NOT BREAK, CRUSH, DISSOLVE OR CHEW 30 tablet 3 5 12:32 PM EST 03/16/20 25 Active enalapril (Vasotec) 20 MG tablet Take 1 tablet (20 mg) by mouth Once per day. TAKE 1 TABLET BY MOUTH ONCE DAILY 90 tablet 3 5 12:32 PM EST 05/19/20 25 026 Active sildenafil (Viagra) 50 MG tabletIndicatio ns:Erectile dysfunction, unspecified erectile dysfunction type TAKE 1 TABLET 1 HOUR BEFORE SEXUAL RELATIONS ONCE DAILY NEEDED. 25 tablet 5 12:32 PM EST 09/22/20 25 Active sildenafil (Viagra) 50 MG tabletIndicatio ns:Erectile dysfunction, unspecified erectile dysfunction type TAKE 1 TABLET 1 HOUR BEFORE SEXUAL RELATIONS ONCE DAILY NEEDED. 25 tablet 08/11/20 25 025 Discontinued(Re order (will not trigger notification to Pharmacy)) Active Problems Problem Noted Date Diagnosed Date Nocturia 08/16/2025 Cramps of left lower extremity 08/16/2025 Palpitations 08/16/2025 Coronary artery disease invo lving pit [place] coronary artery of [place] heart 10/26/2024 Erectile dysfunction 11/14/2023 Colon cancer [...] Encounters Date Type Department Care Team Description 10/12/2025 Orders Only GENERIC EXTERNAL DATA DEPARTMENT Provider, Generic External Data 09/22/2025 Refill [facility] [address] [place] [address] Kalpana Shelby MD Erectile dysfunction, unspecified erectile dysfunction type 08/26/2025 Orders Only [facility] [address] [place] [address] Kalpana Shelby MD 08/23/2025 Orders Only [facility] External Provider, [facility] 08/16/2025 9:00 AM EST Office Visit [address] [address] Kalpana Shelby MD Cramps of left lower extremity (Primary Dx); Type 2 diabetes mellitus without complication, without long-term current use of insulin (HCC); Nocturia; Other penitentiary (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; Coronary artery disease involving pit river coronary artery of [place] river heart, unspecified whether angina present; Chronic hepatitis C without hepatic coma (HCC); Dietary counseling; Exercise counseling; Overweight; Palpitations; Benign hypertension; Colon cancer screening; Encounter for immunization 08/16/2025 Orders Only [facility] [address] [place] [address] Kalpana Shelby MD 08/16/2025 Travel 08/15/[address] [phone] Kalpana Shelby MD Chart Prep 08/10/2025 Refill [facility] [address] [place] [address] [phone] Kalpana Shelby MD Erectile dysfunction, unspecified erectile dysfunction type 08/09/2025 Orders Only [facility] External Provider, [facility] from Last 3 Months Immunizations Immunization Administration [...] Exam 1966 Meningococcal B Vaccine (1 of 4 - Increased Risk) 1966 Alcohol/Substance Use Screening 1968 Hepatitis A Vaccines (1 of 2 - Risk 2-dose series) 1975 07/29/2007, 09/19/2006 RSV Patients and Patients Aged 60 years or older (1 - Risk 50-74 years 1-dose series) 2006 Hepatitis B Vaccines (1 of 3 - Risk 3-dose series) 2016 07/29/2007, 11/13/2006, 09/19/2006 Meningococcal Vaccine (2 - Risk 2-dose series) 05/18/2019 03/23/2019 Colonoscopy 06/17/2023 06/17/2013 Colorectal Cancer Screening 06/17/2023 COVID-19 Vaccine ( season) 2025 Influenza Vaccine (#1) 2025 , 08/26/2019, 07/09/2018, Additional history exists Diabetes: Hemoglobin A1C 02/13/2026 025, 09/26/2023, 11/01/2022, Additional history exists Eye Exam 03/11/2026 03/11/2024, 02/12, 03/11/2024, Additional history exists Depression Screening 08/16/2026 08/16/2025, 08/16/20 25 Diabetes: Urine Protein Screening 08/16/2026 08/16/2025, 11/14/2023, [...] on patient's age to complete this topic Goals Goal Patient Goal Type Associated Problems [...] has chronic kidney disease No Zahra Bashir 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 UP PERSON Procedures Procedure Name Priority Date/Time Associated Diagnosis Comments URINALYSIS, COMPLETE, WITH REFLEX TO CULTURE Routine 10/12/2025 8:45 AM EST XR CALCANEUS 2 VIEWS LEFT Routine 08/23/2025 12:53 PM EST HEPATITIS C VIRAL RNA, QUANTITATIVE, REAL-TIME PCR Routine 08/16/2025 10:16 AM EST ALBUMIN, RANDOM URINE W/CREATININE Routine 08/16/2025 10:16 AM EST Type 2 diabetes mellitus without complication, without long-term current use of insulin (HCC) VITAMIN D,25-OH,TOTAL,IA Routine 08/16/2025 10:16 AM EST Type 2 diabetes mellitus without complication, without long-term current use of insulin (HCC) Other penitentiary (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 VITAMIN B12/FOLATE, SERUM PANEL [...] current use of insulin (HCC) POCT GLUCOSE (CPT-79326) Routine 08/16/2025 9:15 AM EST Type 2 [...] 7:32 PM EDT Coronary artery disease involving pit river coronary artery of pit river heart, unspecified whether angina present COMPLETE BLOOD COUNT MAN DIF Routine 08/09/2025 7:32 PM EDT Coronary artery disease involving [place] coronary artery of [place] heart, unspecified whether angina present CBC WITH AUTO DIFFERENTIAL Routine 08/09/2025 7:32 PM EDT Coronary artery disease involving [place] coronary artery of [place] heart, unspecified whether angina present CREATINE KINASE, TOTAL Routine 7:32 PM EDT Coronary artery disease involving pit [place] coronary artery of [place] heart, unspecified whether angina present MAGNESIUM Routine 08/09/2025 7:32 PM EDT Coronary artery disease involving [place] coronary artery of [place] river heart, unspecified whether angina present COMPREHENSIVE METABOLIC PANEL Routine 08/09/2025 7:32 PM EDT Coronary artery disease involving pit [place] coronary artery of pit river heart, unspecified whether angina present COVID-19 ID NOW (Ticketbis) Routine 08/09/2025 7:32 PM EDT Coronary artery disease involving pit [place] coronary artery of [place] river heart, unspecified whether angina present APTT Routine 08/09/2025 7:32 PM EDT Coronary artery disease involving pit [place] coronary artery of [place] river heart, unspecified whether angina present PROTHROMBIN TIME-INR Routine 08/09/2025 7:32 PM EDT Coronary artery disease involving [place] coronary artery of [place] heart, unspecified whether angina present INFLUENZA A B2 ID NOW (BRUNO) Routine 08/09/2025 7:32 PM EDT Coronary artery disease involving pit river coronary artery of pit river heart, unspecified whether angina present HM COLONOSCOPY Routine 06/17/2013 2:17 PM EDT from Last 3 Months or Most Recently Relevant to Health Maintenance Results * (ABNORMAL) Urinalysis, Complete, with Reflex to Culture (10/12/2025 8:45 AM EST) Color Urine Yellow [facility] Appearance Urine Clear [facility] PH 7.5 5.0 - 9.0 [facility] Glucose Urine UA Negative Negative mg/dL [facility] Urine Blood Negative Negative [facility] Specific [place] - Urine 1.020 1.005 - 1.025 [facility] Urine Protein 30 (1+)(A) Neg-Trace mg/dL [facility] Urine Ketones Trace Negative mg/dL [facility] Nitrite Urine Negative Negative [facility] Leukocyte Esterase Urine Trace(A) Negative [facility] RBC Urine 0-2 0 - 2 /HPF [facility] Urine WBC 0-5 0 - 5 /HPF [facility] Urine Squamous Epithelial Cell 0-2 0 - 2 /HPF [facility] Urine Bacteria None Seen None Seen [facility] Hyaline Casts, Urine 0-2 0 - 2 /LPF [facility] 10/12/2025 8:45 AM EST 10/12/2025 8:47 AM EST Narrative [facility] - 10/12/2025 9:03 AM EST [id number], [employer] us Generic External Data Provider LAB URINE ORDERAB LES Final Result Performing Organization Address City/State/[facility] Co de Phone Number [facility] [address] [place] [phone] * XR Calcaneus 2 Views Left (08/23/2025 12:53 PM EST) Anatomical Region Laterality Modality Lower Extremities, Calcaneus Left Rad iographic Imaging 08/23/2025 12:5 3 PM EST Narrative 08/24/2025 7:59 AM EST [address] [address] XRay Report Signed Patient: Jorge A Iqbal MR# : [id number] : 1955 Acct:[id number] Age/Sex: 69 / M ADM Date: 08/23/25 Loc: MAYTE Attending Dr: Pravin Chow DPM Ordering Physician: Pravin Chow DPM Date of Service: 08/23/25 Procedure(s): XR calcaneus LT min 2V Accession Number(s): [id number] cc: Kalpana Shelby MD; Pravin Chow DPM Reason for Exam: 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 COMPARISON: None available. TECHNIQUE: Lateral and axial views of the left calcaneus were obtained. FINDINGS: No evidence of acute fracture or malalignment. No erosions. Moderate posterior calcaneal enthesopathy. Moderate plantar calcaneal spur. Dorsal talar neck spurring. Vascular calcifications. XR/XR calcaneus LT min 2V IMPRESSION: 1. Moderate posterior calcaneal enthesopathy. 2. Moderate plantar calcaneal spur. Electronically signed by: Mathew Clark MD 08/24/2025 07:56 AM EST Dictated By: Mathew Clark MD Signed By: <Electronically signed by Mathew Clark MD in OV> 08/24/25 0756 DD/ 1253 TD/TT: 08/23/25 1257 College Intern: LEIDY Procedure Note Donotuseinterpreter, Image - 08/24/2025 [place] [address] XRay Report Signed Patient: Kenzie IqbalR# : [id number] : 7Acct:[id number] Age/Sex: 69 / MADM Date: 08/23/25 Loc: MAYTE Attending Dr: Pravin Chow DPM Ordering Physician: Pravin Chow DPM Date of Service: 08/23/25 Procedure(s): XR calcaneus LT min 2V Accession Number(s): [id number] cc: Kalpana Shelby MD; Pravin Chow DPM Reason for Exam: M92.60 - Juvenile osteochondrosis of tarsus, unspecifiedankle EXAMINATION: XR CALCANEUS, LEFT CLINICAL INFORMATION: 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 COMPARISON: None available. TECHNIQUE: Lateral and axial views of the left calcaneus were obtained. FINDINGS: No evidence of acute fracture or malalignment. No erosions. Moderate posterior calcaneal enthesopathy. Moderate plantar calcaneal spur. Dorsal talar neck spurring. Vascular calcifications. XR/XR calcaneus LT min 2V IMPRESSION: 1. Moderate posterior calcaneal enthesopathy. 2. Moderate plantar calcaneal spur. Electronically signed by: Mathew Clark MD 08/24/2025 07:56 AM EST Dictated By: Mathew Clark MD Signed By: <Electronically signed by Mathew Clark MD in OV> 08/24/25 0756 DD/ 1253 TD/TT: 08/23/25 1257 College Intern: LEIDY us [facility] External Provider IMG XR PROCEDURES Final Result * Vitamin D, 25-Hydroxy, Total, Immunoassay (08/16/2025 10:16 AM EST) Vitamin D 25-OH Total 42.6 >30 ng/mL [facility] Comment: Health Based Reference Values*< 20 ng/mL [id number] ng/mL Insufficient> 30 ng/mL Sufficient*Adarsh DÍAZ. N [...] BLOOD ORDERABLES Final Result Performing Organization Address [facility] Co de Phone Number [facility] [address] [place] [phone] * Vitamin B12/Folate, Serum Panel (08/16/2025 10:16 AM EST) Vitamin B12 497 200 - 900 pg/mL [facility] Comment:NORMAL 200-900 PG/ML INDETERMINATE 160-199 PG/ML DEFICIENT < 160 PG/ML Folate 15.0 > or = 4.0 ng/mL [facility] Comment:Reference Values:> o r = [...] BLOOD ORDERABLES Final Result Performing Organization Address [facility] Co de Phone Number [facility] [address] [place] [phone] * TSH with Reflex to Free T4 (08/16/2025 10:16 AM EST) TSH reflex Free T4 2.13 0.32 - 4.0 uIU/mL [facility] Blood Venous blood specimen / Unknown 08/16/2025 10:16 AM EST 08/16/2025 11:54 AM EST Kalpana Scanlon MD LAB BLOOD ORDERABLES Final Result Performing Organization Address [facility] Co de Phone Number [facility] [address] [place] [phone] * PSA, Total With Reflex to PSA, Free (08/16/2025 10:16 AM EST) PSA,Total (Free>4and<10) 0.85 0.00 - 4.00 ng/mL [facility] Comment:A Free PSA was not [...] 6 AM EST 08/16/2025 11:54 AM EST us Kalpana Scanlon MD LAB BLOOD ORDERABLES Final Result Performing Organization Address City/[facility]/ZIP Co de Phone Number [facility] [address] [place] [phone] * Hepatitis C Viral RNA, Quantitative, Real-Time PCR (08/16/2025 10:16 AM EST) Hepatitis C Viral Load <15 NOT DETECTED NOT DETECTED IU/mL [facility] HCV Log PCR <1.18 NOT DETECTED NOT DETECTED Log IU/mL [facility] Comment:For additional infor matshaji, please refer [email or web address] [email or web address]/[email or web address](This link is being provided for informational/educational purposes only.)THIS TEST WAS PERFORMED AT:[facility] [place] [phone] RONQUILLO MD 08/16/2025 10:1 6 AM EST 08/19/2025 9:17 AM EST us Kalpana Scanlon MD LAB BLOOD ORDERABLES Final Result Performing Organization Address [facility] de Phone Number [facility] [address] [place] [phone] * (ABNORMAL) Albumin, Random Urine W/Creatinine (08/16/2025 10:16 AM EST) Creatinine, Urine 47.02 mg/dL [facility] Microalbumin Urine 18.0 mg/L [facility] Microalbum Creatinine Ratio Ur 38.2(H) <30 ug/mg cr [facility] Comment:Albumin/Creatinine R atio Reference Ranges: Normal: < 30 ug/mg creatinine Microalbuminuria: 30 - 300 ug/mg creatinineClinical Albuminuria: > 300 ug/mg creatinine Urine (Urine, Random) 08/16/2025 10:16 AM EST 08/16/2025 11:35 AM EST us Kalpana Scanlon MD LAB URINE ORDERABLES Final Result Performing Organization Address [facility] de Phone Number [facility] [address] [place] [phone] * (ABNORMAL) Hepatitis C Antibody with Reflex to HCV, RNA, Quantitative, Real- Time PCR (08/16/2025 10:16 AM EST) Hepatitis C Antibody Reactive( A) Nonreactive [facility] Comment:Presumptive evidence of antibodies to HCV. Blood Venous blood specimen / Unknown 08/16/2025 10:16 AM EST 08/16/2025 11:54 AM EST Kalpana Scanlon MD LAB BLOOD ORDERABLES Final Result Performing Organization Address [facility] Co de Phone Number [facility] [address] [place] [phone] * Lipid Panel, Standard (08/16/2025 10:16 AM EST) Triglycerides 122 <150 mg/dL [facility] Comment:Desirable Triglyceri de: less than 150 mg/dLBorderline High Triglyceride 150-199 mg/dLHigh Triglyceride: 200-499 mg/dLVery High Triglyceride: greater than or equal to 5OO mg/dL Cholesterol 147 <200 mg/dL [facility] Comment:Desirable Cholestero l: less than 200 mg/dLBorderline High Cholesterol: 200-239 mg/dLHigh Cholesterol: greater than 239 mg/dL LDL Cholesterol Calculated 73 <100 mg/dL [facility] Comment:Desirable LDL: less than 100 mg/dLNear Optimal/Above Optimal LDL: 110- 129 mg/dLBorderline High LDL: 130-159 mg/dLHigh LDL: 160-189 mg/dLVery High LDL: greater than or equal to 190 mg/dL HDL Cholesterol 50 >40 mg/dL [facility] Comment:Desirable HDL: great er than 40 mg/dL Note: This HDL assay may give artificially low results in patients with liver disease. Blood Venous blood specimen / Unknown 08/16/2025 10:16 AM EST 08/16/2025 11:54 AM EST Kalpana Scanlon MD LAB BLOOD ORDERABLES Final Result Performing Organization Address City/[facility]/ZIP Co de Phone Number [facility] [address] [place] [phone] [phone] * (ABNORMAL) Comprehensive Metabolic Panel (08/16/2025 10:16 AM EST) Only the most recent of2 resultswithin the time period is included. Sodium 137 135 - 145 mmol/L [facility] Potassium 4.6 3.3 - 5.1 mmol/L [facility] Chloride 103 96 - 108 mmol/L [facility] Carbon Dioxide 27 22 - 29 mmol/L [facility] Anion Gap 12 12 - 20 [facility] Urea Nitrogen (BUN) 11 9 - 16 mg/dL [facility] Creatinine, Serum 0.83 0.5 - 1.4 mg/dL [facility] Estimated Glomerular Filt Rate >60 [facility] Comment:Chronic Kidney Disea se: Estimated GFR < 60 mL/min/1.52y0Zekkke Kidney Disease: Estimated GFR < 15 mL/min/1.73m2 Glucose 105 60 - 115 mg/dL [facility] Calcium 9.2 8.4 - 10.2 mg/dL [facility] Bilirubin, Total 0.9 0.0 - 1.0 mg/dL [facility] Aspartate Amino Transferase 42(H) 5 - 37 U/L [facility] Alanine Aminotransferase 31 0 - 40 U/L [facility] Total Protein 7.8 6.5 - 8.0 g/dL [facility] Albumin Level 4.4 3.5 - 5.0 g/dL [facility] Alkaline Phosphatase 64 39 - 117 U/L [facility] Blood Venous blood specimen / Unknown 08/16/2025 10:16 AM EST 08/16/2025 11:54 AM EST us Kalpana Scanlon MD LAB BLOOD ORDERABLES Final Result [facility] [address] [place] [phone] * POCT Hgb A1c (08/16/2025 9:15 AM EST) Hemoglobin A1C 5.7 4.0 - 5.7 % [employer] Media Lot # [id number] Lot# Expiration Date Blood 08/16/2025 9:15 AM EST Kalpana Scanlon MD POINT OF CARE TEST EN TER/EDIT ORDERABLES Final Result * POCT Glucose (08/16/2025 9:15 AM EST) Pathologist [facility] Glucose Blood, POC 100 60 - 200 mg/dL [employer] Lot # [id number] Lot# Expiration Date Blood Capillary blood specimen / Unknown 08/16/2025 9:15 AM EST us Kalpana Scanlon MD POINT OF CARE TEST EN TER/EDIT ORDERABLES Final Result * (ABNORMAL) High Sensitivity Troponin I (08/09/2025 9:36 PM EDT) Only the most recent of2 resultswithin the time period is included. [facility] TROPONIN I HIGH SENSITIVITY 82.3(H) <3.5 - 35.0 ng/L [facility] Comment:The Bruno high sens itivity Troponin-I results should beused in conjunction with other diagnostic information suchas ECG, clinical observations and information, and patientsymptoms to aid in the diagnosis of [place]. 08/09/2025 9:36 PM EDT 08/09/2025 9:40 PM EDT us Generic External Data Provider LAB BLOOD ORDERAB LES Final Result Performing Organization Address City/State/[facility] Co de Phone Number [facility] [address] [place] [phone] * Urinalysis w/reflex microscopic (08/09/2025 9:36 PM EDT) Pathologist [facility] Color Urine Yellow [facility] Appearance Urine Clear [facility] PH 6.0 5.0 - 9.0 [facility] Glucose Urine UA Negative Negative mg/dL [facility] Urine Blood Negative Negative [facility] Specific [place] - Urine 1.010 1.005 - 1.025 [facility] Urine Protein Negative Neg-Trace mg/dL [facility] Urine Ketones Negative Negative mg/dL [facility] Nitrite Urine Negative Negative [facility] Leukocyte Esterase Urine Negative Negative [facility] 08/09/2025 9:36 PM EDT 08/09/2025 9:40 PM EDT Narrative [facility] - 08/09/2025 9:50 PM EDT Urine, Clean Catch us Generic External Data Provider LAB URINE ORDERAB LES Final Result Performing Organization Address City/State/[facility] Co de Phone Number [facility] [address] [place] [phone] * XR Thoracic Spine 3 Views (08/09/2025 8:25 PM EDT) Anatomical Region Laterality Modality Spine, T-spine Radiographic Glendy ging 08/09/2025 8:25 PM EDT Narrative 08/09/2025 8:26 PM EDT [address] [address] XRay Report Signed Patient: Jorge A Iqbal MR# : [id number] : 1955 Acct:[id number] Age/Sex: 69 / M ADM Date: 08/09/25 Loc: .ED Attending Dr: Ordering Physician: Jose Krause Date of Service: 08/09/25 Procedure(s): XR thoracic spine 3V Accession Number(s): [id number] cc: Jose Krause; Kalpana Shelby MD Reason [...] in OV> 08/09/252025 DD/ 24 TD/TT: 08/09/252024 College Intern: Procedure Note Donotuseinterpreter, Image - 08/09/[address] [address] XRay Report Signed Patient: Kenzie IqbalR# : [id number] : 1955cct:[id number] Age/Sex: 69 / MADM Date: 08/09/25 Loc: .ED Attending Dr: Ordering Physician: Jose Krause Date of Service: 08/09/25 Procedure(s): XR thoracic spine 3V Accession Number(s): [id number] cc: Jose Krause; Kalpana Shelby MD Reason [...] in OV> 08/09/252025 DD/ 24 TD/TT: 08/09/252024 College Intern: [facility] External Provider IMG XR PROCEDURES Final Result * XR Chest 1 View (08/09/2025 8:24 PM EDT) Anatomical Region Laterality Modality Chest Radiographic Glendy ging 08/09/2025 8:24 PM EDT Narrative 08/09/2025 8:25 PM EDT [address] [address] XRay Report Signed Patient: Jorge A Iqbal MR# : [id number] : 1955 Acct:[id number] Age/Sex: 69 / M ADM Date: 08/09/25 Loc: .ED Attending Dr: Ordering Physician: Jose rKause Date of Service: 08/09/25 Procedure(s): XR chest 1V Accession Number(s): [id number] cc: Jose Krause; Kalpana Shelby MD Reason [...] in OV> 08/09/252024 DD/ 23 TD/TT: 08/09/252023 College Intern: Procedure Note Donotuseinterpreter, Image - 08/09/2025 [place] [address] XRay Report Signed Patient: Boubacar Iqbal# : [id number] : 7Acct:[id number] Age/Sex: 69 / MADM Date: 08/09/25 Loc: .ED Attending Dr: Ordering Physician: Jose Krause Date of Service: 08/09/25 Procedure(s): XR chest 1V Accession Number(s): [id number] cc: Jose Krause; Kalpana Shelby MD Reason [...] in OV> 08/09/252024 DD/ 23 TD/TT: 08/09/252023 College Intern: [facility] External Provider IMG XR PROCEDURES Final Result * Influenza A B2 ID NOW (Bruno) (08/09/2025 7:32 PM EDT) IDNOW SERIAL# [id number] [facility] Influenza A Negative Negative [facility] Influenza B2 Negative Negative [facility] Influenza A B2 Note See Note [facility] Comment:The Bruno ID NOW In [...] GENERAL ORDERABLES Final Result Performing Organization Address City/State/[facility] Co de Phone Number [facility] [address] [place] [phone] * COVID-19 ID NOW (BRUNO) (08/09/2025 7:32 PM EDT) IDNOW SERIAL# [id number] [facility] COVID-19 TEST Negative Negative [facility] COVID-19 NOTE See Note [facility] Comment: Results are for the identification of SARS-CoV2 RNA. TheSARS-CoV2 RNA is generally detectable in respiratory samplesduring the acute phase of infection. Positive results areindicative of the presence of SARS-CoV-2 RNA; clinicalcorrelation with patient history and other diagnosticinformation is necessary to determine patient infectionstatus. Positive results do not rule out bacterial infectionor co- infection with other viruses.Testing facilities within the [facility] and itsterritories are required to report [...] use by authorized laboratories.Testing performed on the [employer] [facility] NOW utilizing NAAT. 08/09/2025 7:32 PM EDT 08/09/2025 7:36 PM EDT us Generic External Data Provider LAB MOLECULAR ILEANA GNOSTICS ORDERABLES Final Result [facility] [address] [place] [address] [phone] * (ABNORMAL) Complete Blood Count Manual Diff (08/09/2025 7:32 PM EDT) White Blood Count 9.5 4.8 - 10.8 X10*3/uL [facility] Red Blood Count 4.62 4.60 - 5.80 X10*6/uL [facility] Hemoglobin 14.3 14.0 - 18.0 g/dl [facility] Hematocrit 42.3 42.0 - 52.0 % [facility] Mean Corpuscular Volume 91.6 80.0 - 98.0 fL [facility] Mean Corpuscular Hemoglobin 31.0 27.0 - 33.0 pg [facility] Mean Corpuscular HGB Conc 33.8 31.0 - 36.0 g/dl [facility] Red Cell Distribution Width 14.1 11.0 - 16.0 % [facility] Platelet Count 213 160 - 400 X10*3/uL [facility] Mean Platelet Volume 11.3 9.4 - 12.4 fL [facility] NRBC Pct Auto 0.0 0.0 - 0.2 /100WBC [facility] NRBC Abs Auto 0.000 0.0 - 0.012 X10*3/uL [facility] Neutrophils % Manual 69 45 - 73 % [facility] Band Neutrophils Percent 0(L) 3 - 5 % [facility] Lymphocytes Percent Manual 17(L) 20 - 40 % [facility] Monocytes Percent Manual 13(H) 2 - 11 % [facility] BASOPHILS % MANUAL 1 0 - 2 % [facility] NEUTROPHILS ABSOLUTE MANUAL 6.6 2.0 - 8.3 X10*3/uL [facility] LYMPHOCYTES ABSOLUTE MANUAL 1.6 1.2 - 4.9 X10*3/uL [facility] MONOCYTES ABSOLUTE MANUAL 1.2 0.1 - 1.2 X10*3/uL [facility] BASOPHILS ABSOLUTE MANUAL 0.1 0.0 - 0.2 X10*3/uL [facility] Platelet Estimate NORMAL NORMAL [facility] Platelet Morphology Comment NORMAL [facility] RBC Morphology NORMAL [facility] 08/09/2025 7:32 PM EDT 08/09/2025 7:36 PM EDT Generic External Data Provider LAB BLOOD ORDERAB LES Final Result Performing Organization Address [facility] Co de Phone Number [facility] [address] [place] [phone] * Partial Thromboplastin Time, Activated (APTT) (08/09/2025 7:32 PM EDT) Partial Thromboplastin Time 27.1 26.7 - 34.1 SEC [facility] 08/09/2025 7:32 PM EDT 08/09/2025 7:36 PM EDT Generic External Data Provider LAB BLOOD ORDERAB LES Final Result Performing Organization Address [facility] Co de Phone Number [facility] [address] [place] [phone] * Prothrombin Time-INR (08/09/2025 7:32 PM EDT) Prothrombin Time 11.8 10.9 - 12.4 SEC [facility] INTERNATIONAL NORM RATIO 1.0 0.9 - 1.1 [facility] Comment:INTERNATIONAL NORMAL IZED RATIO (INR) [...] ORDERAB LES Final Result Performing Organization Address [facility] de Phone Number [facility] [address] [place] [phone] * Magnesium (08/09/2025 7:32 PM EDT) Pathologist [facility] Magnesium 2.2 1.6 - 2.6 mg/dL [facility] 08/09/2025 7:32 PM EDT 08/09/2025 7:36 PM EDT Generic External Data Provider LAB BLOOD ORDERAB LES Final Result Performing Organization Address [facility] de Phone Number [facility] [address] [place] [address] [phone] * (ABNORMAL) Creatine Kinase, Total (08/09/2025 7:32 PM EDT) Creatine Kinase Total 394(H) 38 - 174 U/L [facility] 08/09/2025 7:32 PM EDT 08/09/2025 7:36 PM EDT Generic External Data Provider LAB BLOOD ORDERAB LES Final Result Performing Organization Address [facility] Co de Phone Number [facility] [address] [place] [address] [place] [phone] * Colonoscopy (06/17/2013 2:17 PM EDT) Colonoscopy Normal Normal Narrative Cookie Lubin - 06/17/2013 2:17 PM EDT Recommended 10 year follow up ([facility] [place] us Historical Provider HEALTH MAINTENANCE Edited Result - Final from Last 3 Months or Most Recently Relevant to Health Maintenance Additional Health Concerns Active Problems Noted Date [...] 09/22/2025 Patient has chronic kidney disease 09/22/[address] [place] [address] [address] STANDARD MEDICARE Care Teams Food Tray [employer]er Relationship Specialty Start Date End Date Kalpana Shelby MD [address] [place] [phone] PCP - General Internal Medicine 07/31/23
[2025-10-12 11:36] VITALS: BP 117/64; PULSE 81; RESP 16; TEMP 36.1; O2SAT 99
--- NOTE | 2025-10-12 11:36 | PC.NURSE ---
ayla Mak assisted pt to car via w/c at pt request
== END 2025-10-12 11:36 | disposition home or self-care (01) ==
PROVIDERS: Emergency Provider Emergency Medicine Emergency Medical Services; PCP Internal Medicine
DX: M54.50 Low back pain, unspecified (principal); M62.830 Muscle spasm of back; I10 Essential (primary) hypertension; E11.9 Type 2 diabetes mellitus without complications; Z86.79 Personal history of other diseases of the circulatory system
CPT/HCPCS: 72100; 72200; 81001; 96372; 99283; 99284; J1885

== ENCOUNTER → 2025-10-12 10:05 | Outpatient (BNV) | payer MEDICARE, MEDICAID, SELFPAY | PROVIDERS: Emergency Provider Emergency Medicine Emergency Medical Services; PCP Internal Medicine; Visit Provider Radiology Diagnostic Radiology | DX: M47.816 Spondylosis without myelopathy or radiculopathy, lumbar region (principal); M53.3 Sacrococcygeal disorders, not elsewhere classified | CPT/HCPCS: 72100; 72200 ==